=== PATIENT | female | born 1940 | race Caucasian/White ===

== ENCOUNTER 2016-08-08 14:41 | Inpatient (IN) | payer MEDICARE, MEDICAID ==
[~2016-08-08] VITALS: Ht 172.7 cm; Wt 53.5 kg
[~2016-08-08 14:41] MED LIST: ALPR-323 PO; DOCU50LI13 PO; ESCI20TA PO; LISI40TA4 PO; LORA0.5T PO; METO100T3 PO; OLAN5TAB3 PO; QUET25TA PO; RIVA3CAP5 PO; ZOLP5TAB7 PO
--- NOTE | 2016-08-08 15:00 | NUR ---
PT BIB PA FOR EVAL OF R HIP FX, NOTED WITH INTERNAL ROTATION. AT BASELINE LOC, OBTUNDED. NAD NOTED; DOES NOT APPEAR TO BE IN PAIN AT REST. RESP EVEN UNLABORED. SKIN WARM NONDIAPHORETIC. SHOWING ST ON MONITOR. ON MONITOR IN ER BED 11.
[2016-08-08 15:03] LABS: BASOPHILS # (AUTO) 0.3 /CMM (0.0-0.2); BASOPHILS % (AUTO) 1.6 % (0.0-2.0); EOSINOPHILS # (AUTO) 0.2 /CMM (0.0-0.7); EOSINOPHILS % (AUTO) 0.9 % (0.0-6.0); HEMATOCRIT 43 % (33-45); HEMOGLOBIN 14.3 g/dL (11.5-14.8); LYMPHOCYTES # (AUTO) 2.8 /CMM (0.8-4.8); LYMPHOCYTES % (AUTO) 15.2 % (20.0-44.0); MEAN CORPUSCULAR HEMOGLOBIN 28 PG (26.0-33.0); MEAN CORPUSCULAR HGB CONC 34 g/dl (31.0-36.0); MEAN CORPUSCULAR VOLUME 82 fL (82-100); MONOCYTES # (AUTO) 1.3 /CMM (0.1-1.30); MONOCYTES % (AUTO) 7.3 % (2.0-12.0); NEUTROPHILS # (AUTO) 13.6 /CMM (1.8-8.9); PLATELET COUNT (AUTO) 367 /CMM (150-450); RDW COEFFICIENT OF VARIATION 14.6 (11.5-15.0); RED BLOOD CELL COUNT(AUTO) 5.18 MIL/uL (4.0-5.2); WHITE BLOOD COUNT (AUTO) 18.2 K/uL (4.3-11.0)
[2016-08-08 15:13] LABS: CALCIUM, SERUM 8.9 mg/dL (8.5-10.1); POTASSIUM 4.2 mmol/L (3.5-5.1)
[2016-08-08 15:17] LABS: INR 0.98 (0.87-1.13); PROTHROMBIN TIME 10.2 SECS (9.5-12.7)
[2016-08-08 15:19] LABS: ALBUMIN 2.7 g/dL (3.4-5.0); BILIRUBIN,DIRECT 0.5 mg/dL (0.0-0.2); BILIRUBIN,TOTAL 1.6 mg/dL (0.2-1.0); TOTAL PROTEIN, SERUM 7.1 g/dL (6.4-8.2)
[2016-08-08 15:48] LABS: EOSINOPHILS % (MANUAL) 1 % (0-4); LYMPHOCYTES % (MANUAL) 14 % (16-48); MONOCYTES % (MANUAL) 10 % (0-11.0); NEUTROPHILS % (MANUAL) 75 (42-76); PLATELET ESTIMATE ADEQUATE
[2016-08-08] MEDS ORDERED: IV NS 0.9% 1,000 ML BAG IV ONE (16:00)
[2016-08-08] MEDS ORDERED: CEFTRIAXONE 1GM BAG (ER ONLY) 50 ML IV ONE ×2 (16:00→16:01)
[2016-08-08] MEDS ORDERED: IV NS 0.9% 1,000 ML ONE (16:01)
[2016-08-08] MEDS ORDERED: IV SET PRIMARY 1 EA INFUS.SET MC ONE (16:01)
--- NOTE | 2016-08-08 16:13 | NUR ---
CALLED DR. NG'S OFFICE, HE IS NOT AVAILABLE HE IS ON VACATION. PAGED SENIOR ENVIRONMENTAL TECHNICIAN PANEL WHO IS COVERING FOR DR. NG.
--- NOTE | 2016-08-08 16:18 | NUR ---
INTERIANO CATH 16FR INSERTED PER DR RUIZ. IMMEDIATE DRAINAGE OF CLOUDY ANUPAM URINE.
--- NOTE | 2016-08-08 16:25 | NUR ---
REPORT LYLA TO RUPESH CONTRERAS FOR ADMISSION
[2016-08-08] MEDS ORDERED: ACETAMINOPHEN 325 MG TABLET PO PRN (16:30)
[2016-08-08] MEDS ORDERED: HYDROCODONE/APAP 5/325MG 1 EACH TABLET PO PRN (16:30)
[2016-08-08] MEDS ORDERED: MAG HYDROX/AL HYDROX/SIMETH 30 ML UDC PO PRN (16:30)
[2016-08-08] MEDS ORDERED: ONDANSETRON HCL/PF 4 MG/2 ML VIAL IVP PRN (16:30)
[2016-08-08] MEDS ORDERED: ZOLPIDEM TARTRATE 5 MG TABLET PO PRN (16:30)
[2016-08-08] MEDS ORDERED: MAGNESIUM HYDROXIDE 30 ML UDC PO PRN (16:30)
[2016-08-08] MEDS ORDERED: CRAN3875 PO (16:34)
[2016-08-08] MEDS ORDERED: ALBU2.5V13 NEB (16:34)
[2016-08-08] MEDS ORDERED: MAGN400O6 PO (16:34)
[2016-08-08] MEDS ORDERED: BISA10SU8 RC (16:34)
[2016-08-08] MEDS ORDERED: MULT-213 PO (16:34)
[2016-08-08] MEDS ORDERED: METO25TA6 PO (16:34)
[2016-08-08] MEDS ORDERED: DOCU-170 PO (16:34)
[2016-08-08] MEDS ORDERED: ACET-2605 PO (16:34)
[2016-08-08] MEDS ORDERED: NA P133E RC (16:34)
[2016-08-08] MEDS ORDERED: IPRA0.2S49 NEB (16:34)
[2016-08-08] MEDS ORDERED: ACET-868 PO (16:34)
--- NOTE | 2016-08-08 16:39 | NUR ---
PT TRANSPORTED TO [facility] IN STABLE CONDITION VIA ACLS PROTOCOL
[2016-08-08 16:50] VITALS: BP 113/74
--- NOTE | 2016-08-08 16:50 | NUR ---
RN NOTES RECEIVED PATIENT FROM ER ALERT, AWAKE WITH BREATHING NORMAL, EVEN AND UNLABORED. NO SOB NOTED. ON 2L O2 VIA NC, SATURATING WELL. NO ACUTE DISTRESS NOTED. IV R HAND 20G IS PATENT AND INTACT, NO INFILTRATION NOTED. BOWEL SOUND PRESENT. PULSES PRESENT. F/C IS PATENT AND INTACT, DRAINING WITH GRAVITY. KEPT CLEAN, DRY AND COMFORTABLE. ALL NEEDS ATTENDED. SAFETY MEASURE OBSERVED. CALL LIGHT WITH IN REACH. WILL CONT TO MONITOR.
[2016-08-08] MEDS: PANTOPRAZOLE 40 MG TABLET.DR PO SCH (17:25)
[2016-08-08] MEDS ORDERED: IV SET PRIMARY PUMP SET 1 EA INFUS.SET MC ONE (17:53)
[2016-08-08] MEDS: IV D5/0.45 NACL 1,000 ML IV PRN (18:10)
[2016-08-08 19:03] LABS: APPEARANCE,URINE SL CLOUDY (CLEAR); BILIRUBIN,URINE NEGATIVE (NEGATIVE); BLOOD, URINE TRACE Ery/uL (NEGATIVE); COLOR,URINE DARK YELLO (YELLOW); KETONES,URINE 1+ (NEGATIVE); LEUKOCYTE ESTERASE ,URINE TRACE (NEGATIVE); NITRITE, URINE POSITIVE (NEGATIVE); PH,URINE 5.5 (5.0-8.0); PROTEIN,URINE 1+ mg/dl (NEGATIVE); UGLUCOSE NEGATIVE (NEGATIVE)
--- NOTE | 2016-08-08 19:30 | NUR ---
RN INITIAL NOTES RECEIVED PATIENT IN BED, OBTUNDED, RESPONSIVE WITH VERBAL AND TACTILE STIMULI WITH EYE OPENING AND WITHDRAWAL FROM STIMULI. NO ACUTE DISTRESS OBSERVED. PATIENT WITH EVEN RESPIRATION, NONLABORED, ON 2LPM OF O2 VIA NC. WITH F/C, INTACT AND DRAINING WELL WITH ANUPAM COLORED URINE, NO BLADDER DISTENTION NOTED. WITH R HAND G20, FLUSHED AND PATENT, IVF INFUSING WELL ORDERED. PATIENT'S NEEDS ANTICIPATED AND MET. SAFETY AND COMFORT ENSURED. BED IN LOW AND LOCKED POSITION. CALL LIGHT IN REACH. WILL MONITOR. Addendum: 08/09/16 at 0105 by HOLDEN SAGASTUME RN PATIENT NOTED WITH R HIP/ UPPER THIGH SWELLING, PATIENT WITH FACIAL GRIMACING WITH PALPATION OF SITE. PATIENT REPOSITIONED FOR COMFORT, HANDLED GENTLY WITH CARE. WILL MONITOR CLOSELY.
[2016-08-08 19:51] LABS: RBC,URINE 0-2 /HPF (0-2)
[2016-08-08 19:52] LABS: ADD URINE CULTURE YES; BACTERIA,URINE Moderate /HPF (None Seen); SQUAMOUS EPITHELIAL CELL,UR Few /HPF (None Seen)
--- NOTE | 2016-08-08 19:55 | NUR ---
RN NOTES PATIENT ENDORSED TO NEXT SHIFT IN STABLE CONDITION WITH BREATHING NORMAL, EVEN AND UNLABORED. NO SOB NOTED. NO ACUTE DISTRESS NOTED. KEPT CLEAN, DRY AND COMFORTABLE. ALL NEEDS ATTENDED. SAFETY MEASURE OBSERVED. CALL LIGHT WITH IN REACH. WILL CONT TO MONITOR.
[2016-08-08 20:00] VITALS: BP 117/80
[2016-08-09 04:00] VITALS: BP 121/73
[2016-08-09] MEDS: IV D5/0.45 NACL 1,000 ML IV PRN ×2 (04:35→18:33)
[2016-08-09 06:34] LABS: BASOPHILS # (AUTO) 0.1 /CMM (0.0-0.2); BASOPHILS % (AUTO) 0.6 % (0.0-2.0); EOSINOPHILS # (AUTO) 0.2 /CMM (0.0-0.7); EOSINOPHILS % (AUTO) 1.5 % (0.0-6.0); HEMATOCRIT 31 % (33-45); HEMOGLOBIN 10.6 g/dL (11.5-14.8); LYMPHOCYTES # (AUTO) 2.1 /CMM (0.8-4.8); LYMPHOCYTES % (AUTO) 19.6 % (20.0-44.0); MEAN CORPUSCULAR HEMOGLOBIN 28 PG (26.0-33.0); MEAN CORPUSCULAR HGB CONC 34 g/dl (31.0-36.0); MEAN CORPUSCULAR VOLUME 82 fL (82-100); MONOCYTES # (AUTO) 0.6 /CMM (0.1-1.30); MONOCYTES % (AUTO) 5.9 % (2.0-12.0); NEUTROPHILS # (AUTO) 7.7 /CMM (1.8-8.9); NEUTROPHILS % (AUTO) 72.4 % (43.0-81.0); PLATELET COUNT (AUTO) 240 /CMM (150-450); RDW COEFFICIENT OF VARIATION 15.7 (11.5-15.0); RED BLOOD CELL COUNT(AUTO) 3.81 MIL/uL (4.0-5.2); WHITE BLOOD COUNT (AUTO) 10.6 K/uL (4.3-11.0)
--- NOTE | 2016-08-09 06:43 | NUR ---
RN CLOSING NOTES PATIENT WITH NO ACUTE DISTRESS OBSERVED OVERNIGHT. PATIENT MONITORED CLOSELY FOR ANY INDICATIONS OF PAIN AND DISCOMFORT. PATIENT HANDLED GENTLY WITH CARE AT ALL TIMES. KEPT CLEAN AND DRY. IVF INFUSING WELL ON PATIENT'S R HAND G20, NO SIGNS OF INFILTRATION. PATIENT'S F/C DRAINED, NOTED WITH FOUL ODOR, ANUPAM COLORED URINE. PATIENT'S NEEDS ANTICIPATED AND MET. SAFETY AND COMFORT ENSURED. CALL LIGHT IN REACH. WILL ENDORSE ACCORDINGLY FOR CONTINUITY OF CARE.
[2016-08-09 07:05] LABS: ALBUMIN 2.1 g/dL (3.4-5.0); BILIRUBIN,TOTAL 0.7 mg/dL (0.2-1.0); CREATININE 0.7 mg/dL (0.6-1.3); MAGNESIUM 1.9 mg/dL (1.8-2.4); PHOSPHORUS 3.1 mg/dL (2.5-4.9); POTASSIUM 3.6 mmol/L (3.5-5.1); TOTAL PROTEIN, SERUM 5.7 g/dL (6.4-8.2)
[2016-08-09] MEDS: PANTOPRAZOLE 40 MG TABLET.DR PO SCH (07:30)
--- NOTE | 2016-08-09 07:50 | NUR ---
RN INITIAL NOTE PT RECEIVED IN BED, RESTING COMFORTABLY. NO S/S OF RESPIRATORY DISTRESS OR SOB, RESPIRATIONS EVEN AND UNLABORED. PT IS OBTUNDED, NON VERBAL. SKIN WARM AND DRY TO TOUCH. PT HAS A RIGHT HIP FRACTURE. NO S/S OF PAIN OR DISCOMFORT. IV SITE FLUSHED AND PATENT. DRESSING C/D/I. INTERIANO CATHETER PATENT AND DRAINING WITH GRAVITY. SAFETY MEASURES IN PLACE. BED IN LOCKED, LOW POSITION WITH TWO SIDE RAILS UP. BED ALARM ON. CALL LIGHT WITHIN REACH. WILL CONTINUE TO MONITOR.
[2016-08-09 08:00] VITALS: BP 123/79
--- NOTE | 2016-08-09 09:39 | NUR ---
RN NOTE PROTONIX NOT GIVEN. ORDERED PO, AWAITING SWALLOW EVAL. ORDERED ISOFLEX BED.
--- NOTE | 2016-08-09 11:26 | NUR ---
WOUND CARE CONSULT: PATIENT SEEN AND SKIN ASSESSMENT DONE. PATIENT IMMOBILE, INCONTINENT, TAMY 10, ON FIRST STEP MATTRESS. SEE TODAY'S SKIN ASSESSMENT IN PCS ALONG WITH RECOMMENDATIONS. RECOMMEND MOISTURE PROTECTION WITH Z GUARD ORDERED. PRESSURE PREVENTION MEASURES, TURN AND REPOSITION EVERY 2 HRS PATIENT CONDITION PERMITS, OFFLOAD BOTH HEELS. ALL DISCUSSED WITH NURSING STAFF. MD IN AGREEMENT WITH PLAN OF CARE. Addendum: 08/09/16 at 1128 by CHECO MONTES WNDNU Amended: Links added.
--- NOTE | 2016-08-09 12:30 | NUR ---
CONSENT FOR SURGERY OBTAINED FROM DEPUTY PUBLIC GUARDIAN LOUISE COMERDiana [phone] WITNESSED BY PRIMARY NURSE JESICA.
[2016-08-09] MEDS: POTASSIUM CL. PREMIX PERIPHER. 50 ML IV SCH ×2 (13:54→15:51)
[2016-08-09] MEDS ORDERED: SECONDARY IV SET 1 EA INFUS.SET MC ONE ×2 (13:54→14:45)
[2016-08-09] MEDS: CEFTRIAXONE 1 G in IV D5W 50 ML IV SCH (15:15)
[2016-08-09 16:00] VITALS: BP 110/76
--- NOTE | 2016-08-09 18:16 | NUR ---
RN CLOSING NOTE PT RESTING IN BED COMFORTABLY. ALL MD ORDERS CARRIED OUT. PT. KEPT CLEAN AND DRY. IV SITE C/D/I. PATENT. ALL SAFETY MEASURES IMPLEMENTED AT ALL TIME. ISOLATION PRECAUTIONS OBSERVED. REPORT WILL BE GIVEN TO PM RN FOR BLACK.
[2016-08-09 20:00] VITALS: BP 124/74
--- NOTE | 2016-08-10 02:56 | NUR ---
RN NOTES PATIENT SLEEPING COMFORTABLY. NO DISTRESS NOTED. ON 2LPM OF O2 VIA NC, RESPIRATION IS EVEN AND UNLABORED. NO ACUTE SIGNS OF PAIN AND DISCOMFORT. SAFETY AND COMFORT ENSURED. BED IN LOW AND LOCKED POSITION. ON CLOSE MONITORING.
[2016-08-10 04:00] VITALS: BP 109/65
[2016-08-10] MEDS: IV D5/0.45 NACL 1,000 ML IV PRN (05:55)
--- NOTE | 2016-08-10 06:52 | NUR ---
RN CLOSING NOTES PATIENT IN BED, SLEEPING COMFORTABLY. NO DISTRESS AND NO DISCOMFORT OBSERVED. PATIENT ON 2LPM OF O2 VIA NC, RESPIRATION IS EVEN AND UNLABORED WITH NO DISTRESS OBSERVED. IVF OF D5 1/2NS AT 75CC/HR INFUSING WELL ON PATIENT'S R HAND, NO INFILTRATION NOTED. F/C INTACT AND DRAINING WELL WITH ANUPAM COLORED URINE. PATIENT KEPT CLEAN AND DRY. AM CARE RENDERED. PATIENT TURNED AND REPOSITIONED, SAFETY AND COMFORT ENSURED. BED IN LOW AND LOCKED POSITION. CALL LIGHT IN REACH. WILL ENDORSE ACCORDINGLY FOR CONTINUITY OF CARE.
[2016-08-10 07:04] LABS: BASOPHILS # (AUTO) 0.1 /CMM (0.0-0.2); BASOPHILS % (AUTO) 0.6 % (0.0-2.0); EOSINOPHILS # (AUTO) 0.2 /CMM (0.0-0.7); EOSINOPHILS % (AUTO) 2.3 % (0.0-6.0); HEMATOCRIT 30 % (33-45); HEMOGLOBIN 10.4 g/dL (11.5-14.8); LYMPHOCYTES # (AUTO) 1.7 /CMM (0.8-4.8); LYMPHOCYTES % (AUTO) 19.8 % (20.0-44.0); MEAN CORPUSCULAR HEMOGLOBIN 28 PG (26.0-33.0); MEAN CORPUSCULAR HGB CONC 34 g/dl (31.0-36.0); MEAN CORPUSCULAR VOLUME 82 fL (82-100); MONOCYTES # (AUTO) 0.6 /CMM (0.1-1.30); MONOCYTES % (AUTO) 6.8 % (2.0-12.0); NEUTROPHILS # (AUTO) 5.9 /CMM (1.8-8.9); NEUTROPHILS % (AUTO) 70.5 % (43.0-81.0); PLATELET COUNT (AUTO) 233 /CMM (150-450); WHITE BLOOD COUNT (AUTO) 8.4 K/uL (4.3-11.0)
[2016-08-10] MEDS: PANTOPRAZOLE 40 MG TABLET.DR PO SCH (07:30)
[2016-08-10 07:31] LABS: ALBUMIN 2.1 g/dL (3.4-5.0); BILIRUBIN,TOTAL 0.8 mg/dL (0.2-1.0); CALCIUM, SERUM 8.3 mg/dL (8.5-10.1); CREATININE 0.7 mg/dL (0.6-1.3); MAGNESIUM 1.7 mg/dL (1.8-2.4); PHOSPHORUS 2.8 mg/dL (2.5-4.9); POTASSIUM 4.1 mmol/L (3.5-5.1); TOTAL PROTEIN, SERUM 5.8 g/dL (6.4-8.2)
--- NOTE | 2016-08-10 07:35 | NUR ---
RN NOTES PATIENT IS OBTUNDED/NONVERBAL, RESPONSIVE WITH VERBAL AND TACTILE STIMULI. OBSERVED AND MONITORED FOR ANY INDICATION OF PAIN AND DISCOMFORT. PATIENT APPEARING CALM AT THIS TIME, NO MOANING AND FACIAL GRIMACING NOTED. PATIENT WITH EVEN RESPIRATION, NON-LABORED, ON 2LPM OF O2 VIA NC. PATIENT STILL NOTED WITH R HIP/ UPPER THIGH SWELLING. PATIENT REPOSITIONED FOR COMFORT, HANDLED GENTLY WITH CARE. WITH F/C, INTACT AND DRAINING WELL WITH ANUPAM COLORED URINE, NO BLADDER DISTENTION NOTED. WITH R HAND G20, FLUSHED AND PATENT, IVF INFUSING WELL ORDERED. PATIENT'S NEEDS ANTICIPATED AND MET. SAFETY AND COMFORT ENSURED. BED IN LOW AND LOCKED POSITION. CALL LIGHT IN REACH. WILL CONTINUE TO MONITOR.
--- NOTE | 2016-08-10 07:55 | NUR ---
RN NOTES PATIENT TAKEN TO OR IN STABLE CONDITION WILL CONTINUE TO MONITOR UPON RETURN
[2016-08-10 08:00] VITALS: BP 129/97
[2016-08-10] MEDS ORDERED: FENTANYL PF 100MCG/2ML AMPUL ONE (08:35)
--- NOTE | 2016-08-10 10:40 | NUR ---
RN NOTES BACK FROM OR IN STABLE CONDITION SEEN BY MD STUDENT, MADE COMFORTABLE, WILL CONTINUE TO MONITOR AND CARRY OUT POST OP ORDERS
[2016-08-10] MEDS ORDERED: SENNOSIDES 8.6 MG TABLET PO PRN (11:00)
[2016-08-10] MEDS ORDERED: DOCUSATE SODIUM 250 MG CAPSULE PO PRN (11:00)
[2016-08-10] MEDS ORDERED: HYDROMORPHONE 1 MG/1 ML DISP.SYRIN IV PRN (11:00)
[2016-08-10] MEDS ORDERED: HYDROCODONE/APAP 5/325MG 1 EACH TABLET PO PRN (11:00)
[2016-08-10] MEDS ORDERED: ONDANSETRON HCL/PF 4 MG/2 ML VIAL IVP PRN (11:00)
[2016-08-10] MEDS ORDERED: ZOLPIDEM TARTRATE 5 MG TABLET PO PRN (11:00)
[2016-08-10] MEDS ORDERED: ACETAMINOPHEN 325 MG TABLET PO PRN (11:00)
[2016-08-10] MEDS ORDERED: BISACODYL SUPP (10 MG) 10 MG/SUPP.RECT SUPP.RECT RC PRN (11:00)
[2016-08-10] MEDS ORDERED: IV LR 1000 ML 1,000 ML IV PRN (11:00)
[2016-08-10] MEDS ORDERED: IV SET PRIMARY PUMP SET 1 EA INFUS.SET MC ONE (11:39)
[2016-08-10] MEDS ORDERED: SECONDARY IV SET 1 EA INFUS.SET MC ONE ×2 (11:39→14:24)
[2016-08-10] MEDS: Magnesium 1GM/D5W 100ML PREMIX 100 ML IV SCH ×2 (11:49→15:19)
[2016-08-10 12:00] VITALS: BP 129/97
[2016-08-10] MEDS ORDERED: ANESTHESIA TRAY IN PYXIS 1 EA TRAY MC ONE (13:04)
[2016-08-10] MEDS: CEFTRIAXONE 1 G in IV D5W 50 ML IV SCH (14:29)
--- NOTE | 2016-08-10 18:51 | NUR ---
RN NOTES PATIENT IS OBTUNDED/NONVERBAL, RESPONSIVE WITH VERBAL AND TACTILE STIMULI. OBSERVED AND MONITORED FOR ANY INDICATION OF PAIN AND DISCOMFORT. PATIENT APPEARING CALM AT THIS TIME, NO MOANING AND FACIAL GRIMACING NOTED. PATIENT WITH EVEN RESPIRATION, NON-LABORED, ON 2LPM OF O2 VIA NC. PATIENT STILL NOTED WITH R HIP DRESSING CLEAN AND INTACT NO BLEEDING NOTED. PATIENT REPOSITIONED FOR COMFORT, HANDLED GENTLY WITH CARE. WITH F/C, INTACT AND DRAINING WELL WITH ANUPAM COLORED URINE, NO BLADDER DISTENTION NOTED. WITH R HAND G20, FLUSHED AND PATENT, IVF INFUSING WELL ORDERED. PATIENT'S NEEDS ANTICIPATED AND MET. SAFETY AND COMFORT ENSURED. BED IN LOW AND LOCKED POSITION. CALL LIGHT IN REACH. WILL CONTINUE TO MONITOR. Addendum: 08/10/16 at 1854 by FABIAN ENRIQUEZ RN RN NOTES RN NOTES WILL ENDORSE TO NEXT SHIFT FOR CONTINUITY OF CARE
[2016-08-10 20:00] VITALS: BP 126/74
--- NOTE | 2016-08-10 20:00 | NUR ---
RECEIVED PATIENT IN BED, PATIENT IS OBTUNDENT/ NON-VERBAL. VSS, AFEBRILE, NO DISTRESS, NO S/S OF PAIN NOTED. PATIENT TURNED AND REPOSITIONED FOR MORE COMFORT AT THIS TIME. CONTINUE TO MONITOR
[2016-08-11] VITALS (14 sets, daily range): BP systolic 99–139; BP diastolic 56–95
[2016-08-11 06:19] LABS: BASOPHILS # (AUTO) 0.1 /CMM (0.0-0.2); BASOPHILS % (AUTO) 0.6 % (0.0-2.0); EOSINOPHILS # (AUTO) 0.1 /CMM (0.0-0.7); EOSINOPHILS % (AUTO) 1.1 % (0.0-6.0); HEMATOCRIT 24 % (33-45); HEMOGLOBIN 8.3 g/dL (11.5-14.8); LYMPHOCYTES # (AUTO) 1.4 /CMM (0.8-4.8); LYMPHOCYTES % (AUTO) 15.5 % (20.0-44.0); MEAN CORPUSCULAR HEMOGLOBIN 28 PG (26.0-33.0); MEAN CORPUSCULAR HGB CONC 34 g/dl (31.0-36.0); MEAN CORPUSCULAR VOLUME 81 fL (82-100); MONOCYTES # (AUTO) 0.5 /CMM (0.1-1.30); MONOCYTES % (AUTO) 6.2 % (2.0-12.0); NEUTROPHILS # (AUTO) 6.7 /CMM (1.8-8.9); NEUTROPHILS % (AUTO) 76.6 % (43.0-81.0); PLATELET COUNT (AUTO) 202 /CMM (150-450); RDW COEFFICIENT OF VARIATION 14.9 (11.5-15.0); RED BLOOD CELL COUNT(AUTO) 2.98 MIL/uL (4.0-5.2); WHITE BLOOD COUNT (AUTO) 8.8 K/uL (4.3-11.0)
[2016-08-11 07:02] LABS: ALBUMIN 1.9 g/dL (3.4-5.0); BILIRUBIN,TOTAL 0.9 mg/dL (0.2-1.0); CALCIUM, SERUM 7.9 mg/dL (8.5-10.1); CREATININE 0.7 mg/dL (0.6-1.3); MAGNESIUM 2.1 mg/dL (1.8-2.4); PHOSPHORUS 3.4 mg/dL (2.5-4.9); POTASSIUM 4.2 mmol/L (3.5-5.1); TOTAL PROTEIN, SERUM 5.2 g/dL (6.4-8.2)
--- NOTE | 2016-08-11 07:15 | NUR ---
ms rn initial notes received patient in bed, awake, head of bed elevated, no SOB or distress noted. On 02 @ 2lpm via NC and tolerated well. Non-verbal. No facial grimace noted. Schneider in placed attached to drainage bag. IV intact and patent with IVF infusing well. Kept patient clean and comfortable in bed, call light with in patient reach, will continue to monitor accordingly.
[2016-08-11] MEDS: PANTOPRAZOLE 40 MG TABLET.DR PO SCH (07:30)
--- NOTE | 2016-08-11 08:44 | NUR ---
MS RN NOTES Dr. Cheung came seen and examined the patient and ordered NGT insertion, 2 units of packed Red blood cell due to hemoglobin of 8.3 chest x-ray after placement. to start fibersource @ 20ml/hr once placement is confirm, discontinue peter catheter. All orders carried out and noted. Will continue to monitor patient. Will call Maureen public guardian for consent for blood transfusion.
[2016-08-11 09:38] LABS: IRON, SERUM 17 ug/dl (50-175); TOTAL IRON BINDING CAPACITY 119 ug/dl (250-450)
[2016-08-11 09:45] LABS: FERRITIN 404 ng/mL (8-388)
--- NOTE | 2016-08-11 09:59 | NUR ---
MS RN NOTES Held medication due to patient is NPO. Will continue to monitor patient accordingly.
--- NOTE | 2016-08-11 10:12 | NUR ---
ms rn notes peter catheter removed will monitor for output and urined retension. will continue to monitor patient accordingly.
[2016-08-11] MEDS: FIBERSOURCE HN 1,000 ML BOTTLE GT PRN (10:42)
[2016-08-11] MEDS: RIVAROXABAN 10 MG TABLET PO SCH (10:54)
--- NOTE | 2016-08-11 10:54 | NUR ---
ms rn notes Chest x-ray result obtained and informed MD the placement of NGT in the stomach and made aware. Started NGT feeding @ 20ml/hr. Will continue to monitor accordingly.
[2016-08-11] MEDS: CEFTRIAXONE 1 G in IV D5W 50 ML IV SCH (13:38)
[2016-08-11 14:20] LABS: HEMOGLOBIN 8.3 g/dL (11.5-14.8)
[2016-08-11] MEDS ORDERED: BLOOD IV SET 1 EA INFUS.SET MC ONE ×2 (14:49→17:30)
[2016-08-11] MEDS ORDERED: IV NS 0.9% 250 ML IV ONE (14:49)
--- NOTE | 2016-08-11 19:40 | NUR ---
MS RN closing notes Patient in bed, awake, head of bed elevated. No SOB or distress noted. On 02 @ 3lpm via NC and tolerated well. Pt is nonverbal. No facial grimace noted. S/P peter cath removal. Output was 300mL. No bowel movement. IV intact and patent. Pt infusing one more unit of PRBCs. Pt stable and tolerated well. Kept patient clean and comfortable in bed. Call light within patient reach. Will endorse to shift boss nurse.
--- NOTE | 2016-08-11 20:00 | NUR ---
MS/ RN NOTES RECEIVED PATIENT IS OBTUNDED/NONVERBAL,PATIENT WITH EVEN RESPIRATION, NON-LABORED, ON 2LPM OF O2 VIA NC. RESPONSIVE WITH VERBAL AND TACTILE STIMULI. NO COMPLAINTS OF OF PAIN AND DISCOMFORT. PATIENT APPEARING CALM AT THIS TIME, WITH NG TUBE ON LEFT NARES WITH ONGOING FEEDING AT THIS TIME. . WITH BLOOD TRANSFUSION ONGOING. NO ADVERSE REACTIONS NOTED. PATIENT WITH EVEN RESPIRATION, NON-LABORED, ON 2LPM OF O2 VIA NC. PATIENT STILL NOTED WITH R HIP/ UPPER THIGH SWELLING. PATIENT REPOSITIONED FOR COMFORT, HANDLED GENTLY WITH WITH R HAND G20, FLUSHED AND PATENT, BED IN LOW AND LOCKED POSITION. CALL LIGHT IN REACH. WILL CONTINUE TO MONITOR.
--- NOTE | 2016-08-11 20:51 | NUR ---
ms/rn notes Patient in bed, Alert et orientedx1. Remain in stable condition. Received 2nd unit of prbc as ordered. No adverse reactions noted. Vital signs stable. No indications of pain or discomfort. With Ng tube, Feeding ongoing. Patient tolerated it well. Will cont. to monitor.
[2016-08-12 04:00] VITALS: BP 142/68
[2016-08-12] MEDS ORDERED: SECONDARY IV SET 1 EA INFUS.SET MC ONE (05:36)
[2016-08-12 06:25] LABS: HEMATOCRIT 44 % (33-45); HEMOGLOBIN 14.6 g/dL (11.5-14.8); LYMPHOCYTES # (AUTO) 0.6 /CMM (0.8-4.8); LYMPHOCYTES % (AUTO) 6.2 % (20.0-44.0); MEAN CORPUSCULAR HEMOGLOBIN 35 PG (26.0-33.0); MEAN CORPUSCULAR HGB CONC 33 g/dl (31.0-36.0); MEAN CORPUSCULAR VOLUME 105 fL (82-100); MONOCYTES # (AUTO) 0.6 /CMM (0.1-1.30); MONOCYTES % (AUTO) 5.6 % (2.0-12.0); NEUTROPHILS # (AUTO) 8.9 /CMM (1.8-8.9); NEUTROPHILS % (AUTO) 88.2 % (43.0-81.0); PLATELET COUNT (AUTO) 129 /CMM (150-450); RDW COEFFICIENT OF VARIATION 13.9 (11.5-15.0); RED BLOOD CELL COUNT(AUTO) 4.22 MIL/uL (4.0-5.2); WHITE BLOOD COUNT (AUTO) 10.1 K/uL (4.3-11.0)
--- NOTE | 2016-08-12 06:37 | NUR ---
MS RN closing notes Patient in bed, awake, head of bed elevated. No SOB or distress noted. On 02 @ 3lpm via NC and tolerated well. Pt is nonverbal. No facial grimace noted. With Ng tube on right nares. with ongoing feeding. Patient tolerate it well. No bowel movement. IV intact and patent. . Pt remain in stable condition. Kept patient clean and comfortable in bed. Call light within patient reach. Will endorse to day shift nurse.
--- NOTE | 2016-08-12 06:55 | NUR ---
RN INTIAL NOTE RECEIVED PT FRO PM NURSE. PT OBTUNDED, NON VERBAL . FC INTACT YELLOW URINE. NGT PLACEMENT CK NO RESIDUAL TOLERATING FIBERSOURCE @ 20 ML/ HR. R HAND #20G FLUSHED,PATENT AND INTACT. ALL SAFETY MEASURES IN PLACE. PT CLEAN WARM AND DRY. PT NOT ABLE TO VERBALIZE PAIN. WILL CONTINUE TO MONITOR CLOSELY.
[2016-08-12 07:24] LABS: BILIRUBIN,TOTAL 0.9 mg/dL (0.2-1.0); CREATININE 0.9 mg/dL (0.6-1.3); MAGNESIUM 1.9 mg/dL (1.8-2.4); POTASSIUM 4.8 mmol/L (3.5-5.1); TOTAL PROTEIN, SERUM 5.2 g/dL (6.4-8.2)
[2016-08-12 08:00] VITALS: BP 116/73
[2016-08-12] MEDS: PANTOPRAZOLE 40 MG TABLET.DR PO SCH (09:01)
[2016-08-12] MEDS ORDERED: IV NS 0.9% 250 ML IV ONE (14:43)
--- NOTE | 2016-08-12 14:49 | NUR ---
RN NOTE IV NS @TKO ALONG WITH CEFTRIAXONE.
[2016-08-12] MEDS: CEFTRIAXONE 1 G in IV D5W 50 ML IV SCH (14:53)
[2016-08-12] MEDS ORDERED: IV SET PRIMARY PUMP SET 1 EA INFUS.SET MC ONE (14:54)
[2016-08-12 16:00] VITALS: BP 144/73
[2016-08-12] MEDS: RIVAROXABAN 10 MG TABLET PO SCH (18:07)
[2016-08-12] MEDS: Z GUARD REMEDY 2 OZ OINT TP PRN (18:51)
[2016-08-12] MEDS ORDERED: NA PHOS,M-B/NA PHOS,DI-BA 1 EA ENEMA RC PRN (19:00)
[2016-08-12] MEDS ORDERED: MAGNESIUM HYDROXIDE 30 ML UDC PO PRN (19:00)
[2016-08-12] MEDS ORDERED: ALBUTEROL FS 2.5 MG/0.5 ML VIAL.NEB NEB PRN (19:00)
[2016-08-12] MEDS ORDERED: ACETAMINOPHEN 325 MG TABLET PO PRN (19:00)
[2016-08-12] MEDS ORDERED: BISACODYL SUPP (10 MG) 10 MG/SUPP.RECT SUPP.RECT RC PRN (19:00)
--- NOTE | 2016-08-12 19:15 | NUR ---
RN CLOSING NOTE PT SPONTANEOUSLY OPENS EYES, NON VERBAL . FC INTACT YELLOW URINE. NGT PLACEMENT CK NO RESIDUAL TOLERATING FIBERSOURCE @ 20 ML/ HR. R HAND #20G FLUSHED,PATENT AND INTACT. ALL SAFETY MEASURES IN PLACE. PT CLEAN WARM AND DRY. ALL MEDICATIONS GIVEN ALL ORDERS CARRIED OUT. PT NOT IN ACUTE SOB. PT RESTING COMFORTABLY. REPORT GIVEN TO PM NURSE FOR BLACK.
[2016-08-12] MEDS ORDERED: IPRATROPIUM NEB FS 0.5 MG/2.5 ML AMPUL.NEB NEB PRN (19:30)
[2016-08-12 20:00] VITALS: BP 124/68
--- NOTE | 2016-08-12 20:00 | NUR ---
MS RN NOTES RECEIVED PTS ON BED AWAKE WITH EYES OPEN , NO FACIAL GRIMACES NOTED , NO SOB NO DISTRESS NOTED . V/S STABLE AFEBRILE ,WITH RIGHT HAND G#20 INTACT AND PATENT , WITH NGT INPLACE FEEDING OF FIBERSOURCE AT 20 CC/HR WELL TOLERATED , NO RESIDUAL NOTED, HOB ELEVATED FOR ASPIRATION PRECAUTION. ALL NEEDS ATTENDED TOO CALL LIGHT WITHIN REACH KEPT PTS CLEAN DRY AND COMFORTABLE,
[2016-08-13 04:00] VITALS: BP 156/76
--- NOTE | 2016-08-13 06:35 | NUR ---
MS RN NOTES PTS ON BED WITH EYES OPEN ,AND RESPONSIVE , NO CHANGE OF CONDITION NOTED V/S STABLE AFEBRILE , REMAINS ON NGT INTACT AND PATENT , POST OP DRESSING ON R HIPS INTACT AND PATENT NO BLEEDING NOTED , ALL NEEDS ATTENDED TOO CALL LIGHT WITHIN REACH , KEPT PTS CLEAN DRY AND COMFORTABLE, WILL ENDORSE TO RN DAY SHIFT FOR CONTINUITY OF CARE.
[2016-08-13] MEDS: FIBERSOURCE HN 1,000 ML BOTTLE GT PRN (06:52)
--- NOTE | 2016-08-13 07:15 | NUR ---
DIANE INITIAL NOTES: Rec'd pt asleep on bed w/ HOB elevated, not in any distress. On O2 at 3lpm/NC, no SOB, saturating at 100%. Pt has NGT on right nares on continuous feeding Fibersource at 20 cc/hr, checked for patency and placement, no residuals noted. Pt has R hand G 20, SL, flushed, patent, clean, dry, & intact w/ no signs of infection/ infiltration noted. Provided comfort and safety measures. Call light placed w/in reached. Bed kept low & in locked position. Will turn, reposition & offload heels as per protocol. Will continue to monitor. Addendum: 08/14/16 at 0722 by JESICA ALONSO RN CORRECTION: Pt has NGT on L nares.
[2016-08-13 08:00] VITALS: BP 137/62
[2016-08-13] MEDS: PANTOPRAZOLE 40 MG TABLET.DR PO SCH (08:44)
[2016-08-13] MEDS: MULTIVIT, IRON, MIN NO. 8, FA 1 TAB TABLET PO SCH (08:44)
[2016-08-13] MEDS: METOPROLOL TARTRATE 25 MG TABLET PO SCH ×2 (08:44→16:29)
[2016-08-13] MEDS: DOCUSATE SODIUM 100 MG CAPSULE PO SCH (08:44)
[2016-08-13] MEDS: Z GUARD REMEDY 2 OZ OINT TP PRN (08:45)
[2016-08-13] MEDS ORDERED: Medication Not On Formulary EA (Cran/Vitc/Mannose/Inulin/Brom (Uti-Stat Liquid) 30 ML) PO SCH (09:00)
--- NOTE | 2016-08-13 10:26 | NUR ---
RN NOTES: Pt seen & examined by dr. Cheung.
--- NOTE | 2016-08-13 10:38 | NUR ---
DR. DEAN EVARNOLATED PT. AND ORDERED TO GET CONSENT FOR PEG,MESSAGE LEFT TO PUBLIC GUARDIAN [phone].
[2016-08-13] MEDS: CEFTRIAXONE 1 G in IV D5W 50 ML IV SCH (14:13)
[2016-08-13 16:00] VITALS: BP 122/75
[2016-08-13] MEDS: RIVAROXABAN 10 MG TABLET PO SCH (16:30)
--- NOTE | 2016-08-13 18:37 | NUR ---
RN CLOSING NOTES: No acute changes noted w/in shift. On O2 at 3lpm/NC, no SOB, saturating at 100%. NGT continuous feeding Fibersource at 20 cc/hr, tolerated well, no residuals upon checking. Pt R hand G 20, SL, flushed, patent, clean, dry, & intact w/ no signs of infection/ infiltration noted. Kept well rested & comfortable. Call light placed w/in reached. Bed kept low & in locked position. Turned, repositioned & offloaded heels. Wound care done. Will endorse to PM RN for BLACK.
--- NOTE | 2016-08-13 19:15 | NUR ---
RN INITIAL NOTES RECEIVED PATIENT IN BED, NONVERBAL, OBTUNDED, ABLE TO OPEN EYES SPONTANEOUSLY AND WITH STIMULI, POOR EYE TRACKING NOTED. PATIENT WITH NO ACUTE DISTRESS OBSERVED. ON 2LPM OF O2 VIA NC, RESPIRATION IS EVEN, UNLABORED, NO SOB. WITH L NARE NGT IN PLACE, PLACEMENT VERIFIED WITH AUSCULTATION, NO SIGNS OF ASPIRATION NOTED, HOB ELEVATED, NGT FLUSHED AND KEPT PATENT. FIBERSOURCE INFUSING WELL AT 20CC/HR. R HAND G20, FLUSHED AND PATENT, NO SIGNS OF INFILTRATION NOTED. R HIP SURGICAL DRESSING INTACT, NO DISCHARGED AND NO BLEEDING NOTED, STILL NOTED TO BE SWOLLEN, NO REDNESS ON SITE. PATIENT REPOSITIONED FOR COMFORT. SAFETY ENSURED. BED IN LOW AND LOCKED POSITION. WILL MONITOR CLOSELY.
[2016-08-13 20:00] VITALS: BP 127/65
--- NOTE | 2016-08-13 20:00 | NUR ---
RN NOTES CALLED THE PUBLIC GUARDIAN OFFICE AT , LEFT A VOICE MESSAGE WITH REGARDS TO THE PROCEDURE CONSENT RECOMMENDED BY MD FOR THE PATIENT. WILL ENDORSE ACCORDINGLY.
[2016-08-14 04:00] VITALS: BP 121/82
[2016-08-14] MEDS: FIBERSOURCE HN 1,000 ML BOTTLE GT PRN (05:10)
--- NOTE | 2016-08-14 06:35 | NUR ---
RN CLOSING NOTES PATIENT WITH NO ACUTE DISTRESS OBSERVED OVERNIGHT. PATIENT MONITORED CLOSELY FOR ANY INDICATIONS OF PAIN AND DISCOMFORT. PATIENT SLEPT COMFORTABLY THROUGH THE NIGHT, NO RESPIRATORY DISTRESS. PATIENT SATURATED WELL AT 2LPM OF O2 VIA NC, AT 100%. L NARE NGT, FLUSHED AND KEPT PATENT, FEEDING TOLERATED WELL WITH NO RESIDUAL. PATIENT KEPT CLEAN AND DRY. TURNED AND REPOSITIONED [id number]. HOB ELEVATED. NEEDS ANTICIPATED AND MET. SAFETY AND COMFORT ENSURED. BED IN LOW AND LOCKED POSITION. WILL ENDORSE ACCORDINGLY FOR CONTINUITY OF CARE.
--- NOTE | 2016-08-14 07:15 | NUR ---
RN INITIAL NOTES: Rec'd pt asleep on bed w/ HOB elevated, not in any form of distress. On O2 at 2lpm/NC, no SOB, breathing unlabored. Pt has patent & intact NGT on L nares, on continuous feeding Fibersource at 20 cc/hr, checked for patency and placement, no residuals noted. Pt has R hand G 20, SL, flushed, patent, clean, dry, & intact w/ no signs of infection/ infiltration noted. Provided comfort and safety measures. Call light placed w/in reached. Bed kept low & in locked position. Will turn, reposition & offload heels as per protocol. Will continue to monitor.
[2016-08-14 08:00] VITALS: BP 141/79
[2016-08-14] MEDS: MULTIVIT, IRON, MIN NO. 8, FA 1 TAB TABLET PO SCH (09:00)
[2016-08-14] MEDS: METOPROLOL TARTRATE 25 MG TABLET PO SCH ×2 (09:00→17:24)
[2016-08-14] MEDS: DOCUSATE SODIUM 100 MG CAPSULE PO SCH (09:00)
[2016-08-14] MEDS: PANTOPRAZOLE 40 MG TABLET.DR PO SCH (09:00)
[2016-08-14] MEDS: Z GUARD REMEDY 2 OZ OINT TP PRN (09:01)
[2016-08-14] MEDS: CEFTRIAXONE 1 G in IV D5W 50 ML IV SCH (14:43)
[2016-08-14 16:00] VITALS: BP 135/75
[2016-08-14] MEDS: RIVAROXABAN 10 MG TABLET PO SCH (17:25)
--- NOTE | 2016-08-14 18:00 | NUR ---
RN NOTES: NGT out. NGT reinsertion on R nares done c/o GERA Swain. Noted for positive for gurgling sounds, negative for residuals. CXR done to confirm NGT placement.
--- NOTE | 2016-08-14 18:35 | NUR ---
RN NOTES: Left an urgent voicemail to pt's conservator [phone] for consent (PEG placement) c/o GERA Swain. Call back details provided.
--- NOTE | 2016-08-14 18:53 | NUR ---
RN CLOSING NOTES: No acute changes noted w/in shift. Pt is saturating at 100% on O2 at 2lpm/NC, no SOB noted. New NGT on R nares (on 42 cm) patent & intact. Awaiting for CXR result to confirm placement. R hand G 20, SL, flushed, patent, clean, dry, & intact w/ no signs of infection/ infiltration noted. Kept well rested & comfortable. Call light placed w/in reached. Bed kept low & in locked position. Turned, repositioned & offloaded heels. Wound care done. Pt for poss PEG placement jurgen morning, awaiting call from pt's conservator for consent. Endorsed to PM RN, hold feeding post midnight.
[2016-08-14 20:00] VITALS: BP 133/84
--- NOTE | 2016-08-15 | NUR ---
RN NOTES: THE NG-TUBE IS ADJUSTED BY ADVANCING IT 7-8 CM RECOMMENDED ON THE X-RAY REPORT. VERIFIED BY AUSCULTATION BY THE CHARGE NURSE. PATIENT IS NPO AFTER MIDNIGHT. WILL CONTINUE TO MONITOR.
[2016-08-15 04:00] VITALS: BP 135/93
[2016-08-15 06:50] LABS: BASOPHILS # (AUTO) 0.1 /CMM (0.0-0.2); BASOPHILS % (AUTO) 0.9 % (0.0-2.0); EOSINOPHILS # (AUTO) 0.1 /CMM (0.0-0.7); EOSINOPHILS % (AUTO) 1.9 % (0.0-6.0); HEMATOCRIT 38 % (33-45); HEMOGLOBIN 12.7 g/dL (11.5-14.8); LYMPHOCYTES # (AUTO) 1.8 /CMM (0.8-4.8); LYMPHOCYTES % (AUTO) 23.7 % (20.0-44.0); MEAN CORPUSCULAR HEMOGLOBIN 28 PG (26.0-33.0); MEAN CORPUSCULAR HGB CONC 34 g/dl (31.0-36.0); MEAN CORPUSCULAR VOLUME 84 fL (82-100); MONOCYTES # (AUTO) 0.4 /CMM (0.1-1.30); MONOCYTES % (AUTO) 5.8 % (2.0-12.0); NEUTROPHILS # (AUTO) 5.1 /CMM (1.8-8.9); NEUTROPHILS % (AUTO) 67.7 % (43.0-81.0); PLATELET COUNT (AUTO) 342 /CMM (150-450); RDW COEFFICIENT OF VARIATION 15.8 (11.5-15.0); RED BLOOD CELL COUNT(AUTO) 4.49 MIL/uL (4.0-5.2); WHITE BLOOD COUNT (AUTO) 7.5 K/uL (4.3-11.0)
[2016-08-15 07:19] LABS: CALCIUM, SERUM 8.9 mg/dL (8.5-10.1); CREATININE 0.6 mg/dL (0.6-1.3); POTASSIUM 4.5 mmol/L (3.5-5.1)
[2016-08-15] MEDS: PANTOPRAZOLE 40 MG TABLET.DR PO SCH (07:30)
--- NOTE | 2016-08-15 07:30 | NUR ---
m/s edge kitter: initial assessment received pt in bed with eyes open, non-verbal, just mumbles; unable to comprehend. ngt to right nostril in placement. ngt placement check and patent. pt schedule for peg placement. awaiting for conservator to call back for consent. will f/u today. pt remains npo. reality orientation provided prn. appears comfortable. will continue to monitor.
[2016-08-15 08:00] VITALS: BP 135/74
[2016-08-15] MEDS: METOPROLOL TARTRATE 25 MG TABLET PO SCH ×2 (08:15→16:33)
[2016-08-15] MEDS: MULTIVIT, IRON, MIN NO. 8, FA 1 TAB TABLET PO SCH (08:15)
[2016-08-15] MEDS: DOCUSATE SODIUM 100 MG CAPSULE PO SCH (08:15)
--- NOTE | 2016-08-15 08:30 | NUR ---
m/s rv repair technician: notes nicole (conservator) on the phone and informed her re: schedule for peg placement this afternoon. nicole provided phone consent on procedure, anesthesia, and blood transfusion with another nurse verifying telephone consents.
--- NOTE | 2016-08-15 10:00 | NUR ---
m/s radius grinder: notes turned and repositioned, kept comfortable. pt remains npo. ngt remains clamped. will continue to monitor.
--- NOTE | 2016-08-15 12:40 | NUR ---
m/s heater operator helper: notes to o.r. via bed at this time for peg placement accompanied by o.r. team.
[2016-08-15 14:25] VITALS: BP 137/86
--- NOTE | 2016-08-15 14:25 | NUR ---
m/s diet kitchen cook: s/p peg received pt from recovery room with dx: s/p peg placement. pt awake, but unable to comprehend. kept comfortable. hob elevated. vss; afebrile. reality orientation provided prn. per recovery nurse, dr. kearney will put the orders in the computer. will continue to monitor. Addendum: 08/15/16 at 1439 by SAMUEL NATHANN no ngt noted at this time.
[2016-08-15] MEDS ORDERED: IV SET PRIMARY PUMP SET 1 EA INFUS.SET MC ONE (14:36)
[2016-08-15] MEDS: CEFTRIAXONE 1 G in IV D5W 50 ML IV SCH (14:38)
--- NOTE | 2016-08-15 14:59 | NUR ---
m/s professor of environmental engineering: notes received new orders from dr. kearney with Instructions: < Do not put gauze under G-tube buttress , Do not use Cayden valve , Do not use G-tube for 6 hours , , 1. Scrub G-tube site with hydrogen peroxide & dress with Bacitracin. awaiting more orders. orders acknowledged.
[2016-08-15 16:00] VITALS: BP 152/82
[2016-08-15] MEDS: RIVAROXABAN 10 MG TABLET PO SCH (16:33)
--- NOTE | 2016-08-15 16:33 | NUR ---
m/s supervisor screen printing: notes pm meds held due to unable to use g-tube for [address] rushing's order. called pharmacist to adjust time for 2100.
[2016-08-15] MEDS ORDERED: MAG HYDROX/AL HYDROX/SIMETH 30 ML UDC GT PRN (16:43)
[2016-08-15] MEDS ORDERED: MAGNESIUM HYDROXIDE 30 ML UDC GT PRN ×2 (16:44)
[2016-08-15] MEDS ORDERED: SENNOSIDES 8.6 MG TABLET GT PRN (16:49)
[2016-08-15] MEDS ORDERED: DOCUSATE SODIUM LIQ 100 MG/10 ML UDC GT SCH (17:00)
[2016-08-15] MEDS ORDERED: ACETAMINOPHEN 650 MG/20 ML UDC- FOR SA PATIENTS ONLY PO PRN (17:00)
[2016-08-15] MEDS ORDERED: DOCUSATE SODIUM LIQ 100 MG/10 ML UDC GT PRN ×2 (17:00)
[2016-08-15] MEDS ORDERED: ACETAMINOPHEN 650 MG/20.3 ML UDC PO PRN (17:00)
[2016-08-15] MEDS ORDERED: ACETAMINOPHEN 650 MG/20.3 ML UDC GT PRN (17:00)
[2016-08-15] MEDS ORDERED: PHARMACY TO CHANGE PO MEDS TO GT/NG XX PRN (17:00)
--- NOTE | 2016-08-15 19:00 | NUR ---
m/s regulatory affairs coordinator: notes pt remains npo at this time. g-tube feeding to start at 2100 per order. report given to lily (roma) for continuity of care. needs attended. in no apparent distress noted.
[2016-08-15 20:00] VITALS: BP 147/80
--- NOTE | 2016-08-15 20:00 | NUR ---
RN NOTES RECEIVED PX AWAKE, NON VERBAL, ONLY MOANS, NOT FOLLOWING COMMANDS, ON NC AT 2 LPM, WITH G TUBE, POSITIVE PLACEMENT SITE NO S/SX BLEEDING, PIV FLUSHED WITH SALINE, PATENT AND INTACT; WITH DIAPER ON, SEE SKIN FLOWSHEET FOR SKIN ASSESSMENT; BILAT DVT PUMPS, HEELS OFFLOADED, REPOSITIONED PX IN BED WITH HOB AT 30 ANGLE, STARTED TUBE FEEDING VIA G TUBE AT 20 ML/HR; NO S/SX OF DISTRESS, RESP EVEN AND UNLABORED.
[2016-08-15] MEDS: METOPROLOL TARTRATE 25 MG TABLET GT SCH (20:39)
[2016-08-15] MEDS: FIBERSOURCE HN 1,000 ML BOTTLE GT PRN (20:48)
[2016-08-15] MEDS ORDERED: RIVAROXABAN 10 MG TABLET GT SCH (21:00)
--- NOTE | 2016-08-15 21:00 | NUR ---
RN NOTES DUE MEDS GIVEN; TUBE FEEDING TOLERATED, NO LEAK ON G TUBE SITE.
--- NOTE | 2016-08-16 00:40 | NUR ---
RN NOTES NEURO STATUS UNCHANGED; AWAKE, BUT NOT FOLLOWING COMMANDS; TUBE FEEDING TOLERATED, NO LEAK FROM G TUBE SITE.
[2016-08-16 04:00] VITALS: BP 118/77
--- NOTE | 2016-08-16 06:06 | NUR ---
RN NOTES PX CONDITION AND NEURO STATUS UNCHANGED; PX MORE AWAKE, FOLLOWS COMMANDS, VERBAL BUT UNCLEAR WORDS; NOT IN DISTRESS, RESP EVEN AND UNLABORED; REPOSITIONED WITH HOB AT 30 ANGLE, NO NEW SKIN BREAKDOWN, SKIN INTACT; RIGHT HIP DRESSING REMAINED CLEAN, DRY AND INTACT; TUBE FEEDING TOLERATED, NO LEAK FROM G TUBE SITE, G TUBE SITE APPEARS CLEAN AND DRY. WILL ENDORSE TO NEXT RN. Addendum: 08/16/16 at 0613 by ALTAGRACIA PRETTY RN BEDBATH RENDERED, ORAL CARE GIVEN, PROCEDURE TOLERATED.
[2016-08-16 07:00] LABS: BASOPHILS # (AUTO) 0.1 /CMM (0.0-0.2); BASOPHILS % (AUTO) 0.8 % (0.0-2.0); EOSINOPHILS # (AUTO) 0.2 /CMM (0.0-0.7); EOSINOPHILS % (AUTO) 2.1 % (0.0-6.0); HEMATOCRIT 34 % (33-45); HEMOGLOBIN 11.6 g/dL (11.5-14.8); LYMPHOCYTES # (AUTO) 1.6 /CMM (0.8-4.8); LYMPHOCYTES % (AUTO) 21.4 % (20.0-44.0); MEAN CORPUSCULAR HEMOGLOBIN 28 PG (26.0-33.0); MEAN CORPUSCULAR HGB CONC 34 g/dl (31.0-36.0); MEAN CORPUSCULAR VOLUME 84 fL (82-100); MONOCYTES # (AUTO) 0.5 /CMM (0.1-1.30); MONOCYTES % (AUTO) 6.8 % (2.0-12.0); NEUTROPHILS # (AUTO) 5.1 /CMM (1.8-8.9); NEUTROPHILS % (AUTO) 68.9 % (43.0-81.0); PLATELET COUNT (AUTO) 347 /CMM (150-450); RDW COEFFICIENT OF VARIATION 15.6 (11.5-15.0); RED BLOOD CELL COUNT(AUTO) 4.09 MIL/uL (4.0-5.2); WHITE BLOOD COUNT (AUTO) 7.4 K/uL (4.3-11.0)
[2016-08-16 07:07] LABS: CALCIUM, SERUM 8.6 mg/dL (8.5-10.1); CREATININE 0.7 mg/dL (0.6-1.3); POTASSIUM 4.5 mmol/L (3.5-5.1)
--- NOTE | 2016-08-16 07:33 | NUR ---
MS RN NOTE PATIENT IN BED , ALL NEEDS ATTENDED RESTING COMFORTABLY , OPEN HER EYES WHEN CALLING HER NAME , ON [employer], WITH GTUBE FEEDING ORDERED , KEEP HOB ELEVATED AT ALL TIME ,NO RESIDUAL NOTED , RT HAND AND LT HAND HL INTACT ,NO S\S INFECTION NOTED , BED IN LOWEST AND LOCKED POSITION, NO SOB NOTED AT THIS TIME, WITH DVT PUMPS BOTH LEGS , ON 2L NC RESPIRATION UNLABORED , RT HIP DRESSING INTACT ,WILL CONT TO MONITOR CLOSELY
[2016-08-16 08:00] VITALS: BP 128/71
[2016-08-16] MEDS: METOPROLOL TARTRATE 25 MG TABLET GT SCH (08:05)
[2016-08-16 08:14] VITALS: BP 128/71
[2016-08-16] MEDS ORDERED: MULTIVITAMIN LIQ 5 ML UDC GT SCH (09:00)
[2016-08-16] MEDS ORDERED: PANTOPRAZOLE 40 MG/PACK PACK NG SCH (09:00)
--- NOTE | 2016-08-16 10:09 | NUR ---
MS RN NOTE SEEN BY DR DEAN WITH ORDER TO D/C SNF , ORDER CARRIED OUT
--- NOTE | 2016-08-16 12:50 | NUR ---
MS RN NOTE CALLED TO SNF, SPOKE WITH RUDDY CONTRERAS; REPORT GIVEN
[2016-08-16] MEDS: CEFTRIAXONE 1 G in IV D5W 50 ML IV SCH (13:34)
--- NOTE | 2016-08-16 14:30 | NUR ---
MS RN NOTE AMBULANCE ARRIVED .REPORT GIVEN ,WENT TO SNF WITH STABLE CONDITION ,HL ON LT HAND INTACT NO S\S INFECTION NOTED
== END 2016-08-16 14:42 | DRG 480 ==
LOC: ER 14:44 → TELE1 16:22 → MEDSG1 18:40
PROVIDERS: ADMIT Internal Medicine; ATTEND Internal Medicine
PROC: 0QS604Z Reposition Right Upper Femur with Internal Fixation Device, Open Approach (ICD-10-PCS; principal; 2016-08-10 09:05)
PROC: 30233N1 Transfusion of Nonautologous Red Blood Cells into Peripheral Vein, Percutaneous Approach (ICD-10-PCS; 2016-08-11)
PROC: 0DH63UZ Insertion of Feeding Device into Stomach, Percutaneous Approach (ICD-10-PCS; 2016-08-15)
DX: M80.851A Other osteoporosis with current pathological fracture, right femur, initial encounter for fracture (principal); G93.40 Encephalopathy, unspecified; E43 Unspecified severe protein-calorie malnutrition; N17.0 Acute kidney failure with tubular necrosis; N39.0 Urinary tract infection, site not specified; D72.829 Elevated white blood cell count, unspecified; F03.90 Unspecified dementia, unspecified severity, without behavioral disturbance, psychotic disturbance, mood disturbance, and anxiety; I10 Essential (primary) hypertension; E83.42 Hypomagnesemia; R13.10 Dysphagia, unspecified; Z79.899 Other long term (current) drug therapy; X58.XXXA Exposure to other specified factors, initial encounter; Y93.9 Activity, unspecified; Y92.129 Unspecified place in nursing home as the place of occurrence of the external cause; Y99.9 Unspecified external cause status; E88.09 Other disorders of plasma-protein metabolism, not elsewhere classified; M62.50 Muscle wasting and atrophy, not elsewhere classified, unspecified site; R73.9 Hyperglycemia, unspecified; D64.9 Anemia, unspecified; Z96.642 Presence of left artificial hip joint
CPT/HCPCS: 36415; 43246; 71010-TC; 73501; 73510-TC; 80048-TC; 80053-TC; 80061-TC; 80076-TC; 81000-TC; 82728-TC; 83540-TC; 83605-TC; 83735-TC; 84100-TC; 84484-TC; 85025-TC; 85027-TC; 85730-TC; 86850-TC; 86921-TC; 87040-TC; 87081-TC; 87086-TC; 92526; 92611-TC; 93307-TC; 94799-TC; 97001-TC; 97110-TC; 97530-TC; A4606; A6209; A6253; A6402; A6403; C1713; J0696; J3010; J3475; J3480; J3490; J7030; J7050; J7060; J7120; P9016-BL; Z7610

== ENCOUNTER 2019-04-10 17:21 | Inpatient (IN) | payer MEDICARE, OTHER, MEDICAID ==
[~2019-04-10] VITALS: Ht 167.6 cm; Wt 54.0 kg
[~2019-04-10 17:21] MED LIST changes: +ACET-868 PO; +ALBU2.5V13 NEB; -ALPR-323 PO; +BISA10SU8 RC; +CRAN3875 PO; +DOCU100C36 PO; -DOCU50LI13 PO; -ESCI20TA PO; +IPRA0.2S49 NEB; -LISI40TA4 PO; -LORA0.5T PO; +MAGN400O6 PO; -METO100T3 PO; +METO25TA6 PO; +MULT-213 PO; +NA P133E RC; -OLAN5TAB3 PO; -QUET25TA PO; -RIVA3CAP5 PO; -ZOLP5TAB7 PO
--- NOTE | 2019-04-10 17:26 | NUR ---
INA FROM [facility] C/O R LEG INJURY NOTED R LEG DEFORMITY. TO ER BED 3, HOOKED TO MONITOR, CHANGED TO HOSPITAL GOWN, PROVIDED W WARM BLANKET, PATIENT AOx0 , AWAITING MD MONSON.
[2019-04-10 18:19] LABS: BASOPHILS # (AUTO) 0.1 /CMM (0.0-0.2); BASOPHILS % (AUTO) 0.3 % (0.0-2.0); EOSINOPHILS % (AUTO) 0.1 % (0.0-6.0); HEMATOCRIT 48 % (33-45); HEMOGLOBIN 15.8 g/dL (11.5-14.8); LYMPHOCYTES # (AUTO) 1.1 /CMM (0.8-4.8); LYMPHOCYTES % (AUTO) 4.8 % (20.0-44.0); MEAN CORPUSCULAR HGB CONC 33 g/dl (31.0-36.0); MEAN CORPUSCULAR VOLUME 87 fL (82-100); MONOCYTES # (AUTO) 1.1 /CMM (0.1-1.30); MONOCYTES % (AUTO) 4.6 % (2.0-12.0); NEUTROPHILS # (AUTO) 20.7 /CMM (1.8-8.9); NEUTROPHILS % (AUTO) 90.2 % (43.0-81.0); PLATELET COUNT (AUTO) 284 /CMM (150-450); RED BLOOD CELL COUNT(AUTO) 5.52 MIL/uL (4.0-5.2)
[2019-04-10 18:30] LABS: CALCIUM, SERUM 9.9 mg/dL (8.5-10.1); CREATININE 0.8 mg/dL (0.6-1.3); POTASSIUM 4.3 mmol/L (3.5-5.1)
--- NOTE | 2019-04-10 19:18 | NUR ---
URINE SAMPLE SENT TO LAB
--- NOTE | 2019-04-10 19:30 | NUR ---
REPORT GIVEN TO MARIBETH CONTRERAS FOR BLACK
--- NOTE | 2019-04-10 19:33 | NUR ---
LACTIC ACID 3.5 MD AWARE
[2019-04-10 19:43] LABS: APPEARANCE,URINE Clear (CLEAR); BILIRUBIN,URINE Negative (NEGATIVE); BLOOD, URINE Negative Ery/uL (NEGATIVE); COLOR,URINE Yellow (YELLOW); KETONES,URINE Negative (NEGATIVE); LEUKOCYTE ESTERASE ,URINE Negative (NEGATIVE); NITRITE, URINE Negative (NEGATIVE); PROTEIN,URINE Negative (NEGATIVE); UGLUCOSE Negative (NEGATIVE); UROBILINOGEN,URINE 0.2 EU/dL (0.2)
[2019-04-10] MEDS ORDERED: IV NS 0.9% 1,000 ML BAG IV ONE (20:00)
[2019-04-10] MEDS ORDERED: PIPERACILLIN /TAZOBACTAM 3.375 G in IV D5W 50 ML IV ONE (20:00)
--- NOTE | 2019-04-10 20:04 | NUR ---
CALLED [facility] FOR TELE BED
[2019-04-10] MEDS ORDERED: PIPERACILLIN /TAZOBACTAM 3.375 G VIAL IV ONE ×2 (20:19→23:29)
--- NOTE | 2019-04-10 20:34 | NUR ---
CALLED [facility] FOR A DR TO DR. DR KAY SPEAKING WITH MIRANDA HYATT
[2019-04-10] MEDS ORDERED: IV NS 0.9% 1,000 ML IV PRN (20:36)
--- NOTE | 2019-04-10 20:57 | NUR ---
REPORT GIVEN TO DIANE DUMONT FOR BLACK
[2019-04-10] MEDS ORDERED: MORPHINE SULFATE INJ 2 MG/ML DISP.SYRIN IV PRN (21:00)
[2019-04-10] MEDS ORDERED: BISACODYL SUPP (10 MG) 10 MG/SUPP.RECT SUPP.RECT RC PRN (21:00)
[2019-04-10] MEDS ORDERED: Z GUARD REMEDY 2 OZ OINT TP PRN (21:00)
[2019-04-10] MEDS ORDERED: CEFTRIAXONE 1 G in IV D5W 50 ML IV SCH (21:00)
[2019-04-10] MEDS ORDERED: HYDROCODONE/APAP 5/325MG 1 EACH TABLET PO PRN (21:00)
[2019-04-10] MEDS ORDERED: ACETAMINOPHEN 325 MG TABLET PO PRN ×2 (21:00)
[2019-04-10] MEDS ORDERED: MAG HYDROX/AL HYDROX/SIMETH 30 ML UDC PO PRN (21:00)
[2019-04-10] MEDS ORDERED: MAGNESIUM HYDROXIDE 30 ML UDC PO PRN ×2 (21:00)
[2019-04-10] MEDS ORDERED: ONDANSETRON HCL/PF 4 MG/2 ML VIAL IVP PRN (21:00)
[2019-04-10] MEDS ORDERED: hydrALAZINE HCL IV 20 MG VIAL IV STA (21:30)
[2019-04-10] MEDS ORDERED: hydrALAZINE HCL IV 20 MG VIAL ONE (21:41)
[2019-04-10 22:00] VITALS: BP 121/81
--- NOTE | 2019-04-10 22:00 | NUR ---
This is an 78 year old female patient who arrives to [facility] from [facility] with a diagnosis of sepsis and right tibial fibula fracture after performance of activities of daily living / bathing / transfering. A splint was placed on the right lower extremity. Consult for Doctor Mcqueen pending. Patient is under the care of Chelsie Recinos. Was given complete bed bath, repositioning, and oxygen via nasal canula. Wound care consultation, dietary consultation request per protocol. Sequential compression device to left lower extremity. Patient vital signs with improvement of reported baseline values from emergency room. Patient needs oral care every four hours. Alfonzo provide peter catheter care per protocol. Given intravenous piggy back of vancomycin and zosyn per orders. Miah Alonzo RN
[2019-04-10 22:11] LABS: BILIRUBIN,DIRECT 0.2 mg/dL (0.0-0.2); BILIRUBIN,TOTAL 0.8 mg/dL (0.2-1.0)
[2019-04-10 22:30] VITALS: BP 120/81
[2019-04-10] MEDS ORDERED: VANCOMYCIN 1.25 GM in IV D5W 250 ML IV ONE (23:00)
[2019-04-10] MEDS ORDERED: VANCOMYCIN 1 GM VIAL ONE (23:28)
[2019-04-10] MEDS: PIPERACILLIN /TAZOBACTAM 3.375 G in IV D5W 50 ML IV SCH (23:36)
[2019-04-11] VITALS: BP 110/89
[2019-04-11 04:00] VITALS: BP 121/63
[2019-04-11] MEDS ORDERED: PIPERACILLIN /TAZOBACTAM 3.375 G VIAL IV ONE (05:29)
[2019-04-11] MEDS: PIPERACILLIN /TAZOBACTAM 3.375 G in IV D5W 50 ML IV SCH ×4 (05:48→23:43)
--- NOTE | 2019-04-11 06:04 | NUR ---
Vital signs stable. Blood work to lab at this time. Will continue to monitor for further needs. Given oral care. Repositioning per protocol. Will endorse to day team registered nurse. Miah Alonzo RN
--- NOTE | 2019-04-11 07:09 | NUR ---
Endorsement to DIANE Mcqueen. Miah Alonzo RN
--- NOTE | 2019-04-11 07:15 | NUR ---
OPEN DEVELOPER OPERATOR NOTES PATIENT IN BED A/OX1-2. NON VERBAL ABLE TO OPEN EYES WHEN NAME CALLED. NO RESIDUAL NOTED FROM G TUBE. PATIENT NPO FOR POSSIBLE PROCEDURE. BED AT THE LOWEST POSITION AND LOCKED, CALL LIGHT WITHIN REACH.
[2019-04-11 07:48] LABS: CALCIUM, SERUM 8.8 mg/dL (8.5-10.1); CREATININE 0.7 mg/dL (0.6-1.3); MAGNESIUM 1.8 mg/dL (1.8-2.4); PHOSPHORUS 2.3 mg/dL (2.5-4.9)
[2019-04-11 08:21] LABS: BASOPHILS % (AUTO) 0.1 % (0.0-2.0); HEMATOCRIT 40 % (33-45); LYMPHOCYTES # (AUTO) 0.6 /CMM (0.8-4.8); LYMPHOCYTES % (AUTO) 3.3 % (20.0-44.0); MEAN CORPUSCULAR HGB CONC 33 g/dl (31.0-36.0); MEAN CORPUSCULAR VOLUME 87 fL (82-100); MONOCYTES # (AUTO) 0.8 /CMM (0.1-1.30); MONOCYTES % (AUTO) 4.7 % (2.0-12.0); NEUTROPHILS # (AUTO) 15.6 /CMM (1.8-8.9); NEUTROPHILS % (AUTO) 91.9 % (43.0-81.0); PLATELET COUNT (AUTO) 173 /CMM (150-450); RED BLOOD CELL COUNT(AUTO) 4.57 MIL/uL (4.0-5.2)
[2019-04-11 08:42] LABS: THYROID STIMULATING HORMONE 0.341 uIU/mL (0.358-3.74)
[2019-04-11] MEDS: DOCUSATE SODIUM 100 MG CAPSULE PO SCH (11:18)
[2019-04-11] MEDS: MULTIVIT W/MINERALS 1 TAB TABLET PO SCH (11:18)
[2019-04-11] MEDS: PANTOPRAZOLE 40 MG VIAL IV SCH (11:19)
[2019-04-11] MEDS: METOPROLOL TARTRATE 25 MG TABLET PO SCH ×2 (11:19→17:56)
[2019-04-11] MEDS ORDERED: POTASSIUM PHOSPHATE MM 7.5 MMOL in IV D5W 100 ML IV SCH (12:00)
[2019-04-11] MEDS ORDERED: FEE PK DOSING 1 MIN EA MC ONE (14:32)
[2019-04-11] MEDS ORDERED: IV 1/2NS 1000 ML 1,000 ML IV ONE (16:30)
--- NOTE | 2019-04-11 16:57 | NUR ---
APPRENTICE MACHINIST OUTSIDE NOTES PER DR SHEN OK TO CONTINUE FEEDING ANG HYDRATION.
[2019-04-11] MEDS ORDERED: VANCOMYCIN 1 GM in IV D5W 250 ML IV SCH (18:00)
--- NOTE | 2019-04-11 19:35 | NUR ---
TRAFFIC ENGINEERING TECHNICIAN NOTES PATIENT IN BED NO SOB OR DISCOMFORT NOTED AT THIS TIME. ENDORSED TO ORGANIZATIONAL RESEARCH CONSULTANT NURSE FOR BLACK.
[2019-04-11 20:00] VITALS: BP 132/48
--- NOTE | 2019-04-11 20:00 | NUR ---
RN NOTE RECEIVED PT IN BED WITH HEAD OF BED ELEVATED. PT SLEEPING WITHOUT SIGNS OF DISTRESS OR DISCOMFORT. NON VERBAL. CURRENTLY ON 4L O2 VIA NC, NO SOB NOTED. INTERIANO CATHETER IN PLACE WITH CLEAR URINE NOTED. TELE MONITORS IN PLACE. JACKIE LIGHT WITHIN REACH. BED IN LOW POSITION. WILL MONITOR.
[2019-04-12] VITALS: BP 99/52
[2019-04-12] MEDS: PIPERACILLIN /TAZOBACTAM 3.375 G in IV D5W 50 ML IV SCH ×4 (06:11→23:01)
[2019-04-12 07:26] LABS: BASOPHILS % (AUTO) 0.3 % (0.0-2.0); EOSINOPHILS % (AUTO) 0.4 % (0.0-6.0); HEMATOCRIT 30 % (33-45); HEMOGLOBIN 10.1 g/dL (11.5-14.8); LYMPHOCYTES # (AUTO) 1.1 /CMM (0.8-4.8); LYMPHOCYTES % (AUTO) 9.6 % (20.0-44.0); MEAN CORPUSCULAR HGB CONC 34 g/dl (31.0-36.0); MEAN CORPUSCULAR VOLUME 86 fL (82-100); MONOCYTES # (AUTO) 0.7 /CMM (0.1-1.30); MONOCYTES % (AUTO) 5.7 % (2.0-12.0); PLATELET COUNT (AUTO) 175 /CMM (150-450); RED BLOOD CELL COUNT(AUTO) 3.48 MIL/uL (4.0-5.2); WHITE BLOOD COUNT (AUTO) 11.9 K/uL (4.3-11.0)
[2019-04-12 08:00] VITALS: BP 126/77
[2019-04-12 08:06] LABS: ALBUMIN 2.6 g/dL (3.4-5.0); CALCIUM, SERUM 8.5 mg/dL (8.5-10.1); CREATININE 0.9 mg/dL (0.6-1.3); PHOSPHORUS 2.5 mg/dL (2.5-4.9); POTASSIUM 3.6 mmol/L (3.5-5.1)
[2019-04-12] MEDS: METOPROLOL TARTRATE 25 MG TABLET PO SCH ×2 (09:00→17:31)
[2019-04-12] MEDS: MULTIVIT W/MINERALS 1 TAB TABLET PO SCH (09:00)
[2019-04-12] MEDS: DOCUSATE SODIUM 100 MG CAPSULE PO SCH (09:00)
[2019-04-12] MEDS: PANTOPRAZOLE 40 MG VIAL IV SCH (09:23)
[2019-04-12 12:00] VITALS: BP 126/74
[2019-04-12] MEDS: TWOCAL HN 1,000 ML LIQUID GT PRN (12:37)
[2019-04-12 16:00] VITALS: BP 119/68
--- NOTE | 2019-04-12 18:46 | NUR ---
PT IN BED WITH HEAD OF BED ELEVATED.PT NON VERBAL. CURRENTLY ON 4L O2 VIA NC, NO SOB NOTED. INTERIANO CATHETER IN PLACE WITH GOOD URINE OUTPUT.STARTED FEEDING TODAY, TOLERATED WELL WITH NO RESIDUAL. TELE ST 100'S. JACKIE LIGHT WITHIN REACH. SAFETY PRECAUTIONS IN PLACE . WILL ENDORSE TO NEXT SHIFT FOR BLACK.
--- NOTE | 2019-04-12 19:05 | NUR ---
RN OPENING NOTES: RECEIVED BEDSIDE REPORT FROM AM SHIFT NURSE. NO SOB. NO S/S OF PAIN. HOB ELEVATED. ON GTF, TOLERATING WELL, NO RESIDUALS. FC INTACT AND PATENT, DRAINING CLEAR YELLOW URINE. ON DEVELOPER PROGRAMMER, SINUS TACHY 90s. IV ACCESS (R) FA G20 AND (L) FA G20 INTACT, PATENT, AND FLUSHING WELL. SAFETY PRECAUTIONS IMPLEMENTED. CALL LIGHT PLACED WITHIN REACH. WILL CONT. TO MONITOR.
[2019-04-12 20:00] VITALS: BP 110/62
[2019-04-13] VITALS: BP 110/50
[2019-04-13 04:00] VITALS: BP 127/66
[2019-04-13] MEDS: PIPERACILLIN /TAZOBACTAM 3.375 G in IV D5W 50 ML IV SCH ×4 (05:04→23:00)
[2019-04-13 06:40] LABS: BASOPHILS % (AUTO) 0.3 % (0.0-2.0); EOSINOPHILS % (AUTO) 0.4 % (0.0-6.0); HEMATOCRIT 27 % (33-45); HEMOGLOBIN 9.2 g/dL (11.5-14.8); LYMPHOCYTES # (AUTO) 0.6 /CMM (0.8-4.8); LYMPHOCYTES % (AUTO) 7.2 % (20.0-44.0); MEAN CORPUSCULAR HGB CONC 34 g/dl (31.0-36.0); MEAN CORPUSCULAR VOLUME 86 fL (82-100); MONOCYTES # (AUTO) 0.4 /CMM (0.1-1.30); MONOCYTES % (AUTO) 4.8 % (2.0-12.0); NEUTROPHILS # (AUTO) 7.9 /CMM (1.8-8.9); NEUTROPHILS % (AUTO) 87.3 % (43.0-81.0); PLATELET COUNT (AUTO) 170 /CMM (150-450); RED BLOOD CELL COUNT(AUTO) 3.15 MIL/uL (4.0-5.2)
[2019-04-13] MEDS: TWOCAL HN 1,000 ML LIQUID GT PRN (07:00)
[2019-04-13 07:04] LABS: CALCIUM, SERUM 7.9 mg/dL (8.5-10.1); CREATININE 0.8 mg/dL (0.6-1.3); POTASSIUM 3.7 mmol/L (3.5-5.1)
--- NOTE | 2019-04-13 07:25 | NUR ---
RN CLOSING NOTES: HAND OFF REPORT GIVEN TO AM SHIFT NURSE. PATIENT ASLEEP BUT EASILY AROUSABLE. NONVERBAL. NO RESPIRATORY DISTRESS. NO S/S OF PAIN. ENDORSED TO AM SHIFT NURSE FOR CONTINUITY OF CARE.
--- NOTE | 2019-04-13 07:30 | NUR ---
INTERIOR SPECIALIST AM NOTES: RECEIVED PATIENT IN BED, OBTUNDED, ON 4L O2 NASAL CANULA, NO SOB. SINUS TACHY ON MONITOR, NO SIGNS OF PAIN, WITH LFA G 20 AND RT FA G 20 IV ACCESS, BOTH FLUSHES WELL, BOTH SITES CLEAR. ON GTF, TWO JACKIE HN 45 ML/HR, TOLERATING WELL, NO RESIDUALS. FC INTACT AND PATENT, DRAINING CLEAR YELLOW URINE. SEE NURSING FLOWSHEET FOR SKIN ISSUES. HOB ELEVATED. SAFETY PRECAUTIONS IMPLEMENTED. CALL LIGHT PLACED WITHIN REACH. WILL CONT. TO MONITOR.
[2019-04-13 08:00] VITALS: BP 139/70
[2019-04-13 08:57] LABS: IRON, SERUM 11 ug/dl (50-175); TOTAL IRON BINDING CAPACITY 139 ug/dl (250-450)
[2019-04-13] MEDS: MULTIVIT W/MINERALS 1 TAB TABLET PO SCH (09:28)
[2019-04-13] MEDS: DOCUSATE SODIUM 100 MG CAPSULE PO SCH (09:28)
[2019-04-13] MEDS: METOPROLOL TARTRATE 25 MG TABLET PO SCH ×2 (09:28→17:00)
[2019-04-13] MEDS: PANTOPRAZOLE 40 MG VIAL IV SCH (09:28)
--- NOTE | 2019-04-13 09:30 | NUR ---
RN NOTES DUE MEDS GIVEN
[2019-04-13 09:41] LABS: FERRITIN 200 ng/mL (8-388)
[2019-04-13 16:00] VITALS: BP 112/57
[2019-04-13] MEDS: FERROUS SULFATE (325 MG) 325 MG/TAB TABLET PO SCH (17:32)
--- NOTE | 2019-04-13 18:47 | NUR ---
RN CLOSING NOTES: PATIENT IN BED, OBTUNDED, ON 4L O2 NASAL CANULA, NO SOB. NO SIGNS OF PAIN, WITH LFA G 20 AND RT FA G 20 IV ACCESS, BOTH FLUSHES WELL, BOTH SITES CLEAR. ON GTF, TWO JACKIE HN 45 ML/HR, TOLERATING WELL, NO RESIDUALS. FC INTACT AND PATENT, DRAINING CLEAR YELLOW URINE. 500 ML TOTAL OUTPUT. SEE NURSING FLOWSHEET FOR SKIN ISSUES. HOB ELEVATED. SAFETY PRECAUTIONS IMPLEMENTED. CALL LIGHT PLACED WITHIN REACH. TURNED AND REPOSITIONED. PM CARE DONE. ALL NEEDS MET. WILL ENDORSE TO NEXT SHIFT FOR BLACK.
--- NOTE | 2019-04-13 19:15 | NUR ---
RN OPENING NOTES: RECEIVED BEDSIDE REPORT FROM AM SHIFT NURSE. NO SOB. NO S/S OF PAIN. HOB ELEVATED AT 45 DEGREES. ON GTF, TOLERATING WELL, NO RESIDUALS. FC INTACT AND PATENT, DRAINING CLEAR YELLOW URINE. IV ACCESS (R) FA G20 AND (L) FA G20 INTACT, PATENT, AND FLUSHING WELL. SAFETY PRECAUTIONS IMPLEMENTED. BED LOCKED AND IN LOWEST POSITION. SIDE RAILS UP X 2. CALL LIGHT PLACED WITHIN REACH. WILL CONT. TO MONITOR.
[2019-04-13 20:00] VITALS: BP 144/80
[2019-04-14 04:00] VITALS: BP 118/40
[2019-04-14] MEDS: TWOCAL HN 1,000 ML LIQUID GT PRN (04:07)
--- NOTE | 2019-04-14 07:00 | NUR ---
RN CLOSING NOTES: PATIENT ASLEEP BUT EASILY AROUSABLE. NONVERBAL. NO RESPIRATORY DISTRESS. NO S/S OF PAIN. SAFETY PRECAUTIONS IMPLEMENTED. XAVIER PICC LINE INTACT, PATENT, AND FLUSHING WELL RUNNING 1/2 NS AT 100 MLS/HR, TOLERATING WELL. WILL ENDORSE TO AM SHIFT NURSE FOR CONTINUITY OF CARE.
[2019-04-14 07:23] LABS: BASOPHILS % (AUTO) 0.5 % (0.0-2.0); EOSINOPHILS % (AUTO) 0.7 % (0.0-6.0); HEMATOCRIT 28 % (33-45); HEMOGLOBIN 9.4 g/dL (11.5-14.8); LYMPHOCYTES # (AUTO) 0.8 /CMM (0.8-4.8); LYMPHOCYTES % (AUTO) 8.8 % (20.0-44.0); MEAN CORPUSCULAR HGB CONC 34 g/dl (31.0-36.0); MEAN CORPUSCULAR VOLUME 87 fL (82-100); MONOCYTES # (AUTO) 0.4 /CMM (0.1-1.30); MONOCYTES % (AUTO) 4.1 % (2.0-12.0); NEUTROPHILS % (AUTO) 85.9 % (43.0-81.0); PLATELET COUNT (AUTO) 216 /CMM (150-450); WHITE BLOOD COUNT (AUTO) 9.4 K/uL (4.3-11.0)
[2019-04-14 07:28] LABS: CALCIUM, SERUM 8.5 mg/dL (8.5-10.1); CREATININE 0.7 mg/dL (0.6-1.3); POTASSIUM 3.9 mmol/L (3.5-5.1)
--- NOTE | 2019-04-14 07:30 | NUR ---
RN AM NOTES: RECEIVED PATIENT IN BED, OBTUNDED, ON 4L O2 NASAL CANULA, NO SOB. NO SIGNS OF PAIN, WITH LFA G 20 AND RT FA G 20 IV ACCESS, BOTH FLUSHES WELL, BOTH SITES CLEAR. ON GTF, TWO JACKIE HN 45 ML/HR, TOLERATING WELL, NO RESIDUALS. FC INTACT AND PATENT, DRAINING CLEAR YELLOW URINE. SEE NURSING FLOWSHEET FOR SKIN ISSUES. HOB ELEVATED. SAFETY PRECAUTIONS IMPLEMENTED. CALL LIGHT PLACED WITHIN REACH. WILL CONT. TO MONITOR.
[2019-04-14 08:00] VITALS: BP 130/78
[2019-04-14] MEDS ORDERED: FERR325T28 PO (09:03)
[2019-04-14] MEDS: MULTIVIT W/MINERALS 1 TAB TABLET PO SCH (09:22)
[2019-04-14] MEDS: DOCUSATE SODIUM 100 MG CAPSULE PO SCH (09:22)
[2019-04-14] MEDS: PANTOPRAZOLE 40 MG VIAL IV SCH (09:22)
[2019-04-14] MEDS: FERROUS SULFATE (325 MG) 325 MG/TAB TABLET PO SCH (09:22)
[2019-04-14 09:23] VITALS: BP 130/78
[2019-04-14] MEDS: METOPROLOL TARTRATE 25 MG TABLET PO SCH (09:23)
--- NOTE | 2019-04-14 09:30 | NUR ---
RN NOTES DUE MEDS GIVEN
--- NOTE | 2019-04-14 14:10 | NUR ---
JANITOR AND CLEANER NOTES PATIENT DISCHARGED TO [facility] PER MD IN STABLE CONDITION. PROVIDED DC INSTRUCTIONS, MED RECON LIST AND HEALTH TEACHINGS. PT TO FOLLOW UP WITH PCP PER FACILITY PROTOCOL. IV ACCESS REMOVED, NO BLEEDING, INTERIANO CATH IN PLACE 400 ML OUTPUT, PHOTOS OF SKIN ISSUES TAKEN, PT WITH LEG CAST/SLING IN PLACE. G TUBE FLUSHED AND CLAMPED. NO BELONGINGS, ALL PAPERWORKS SIGNED. REPORT GIVEN TO CADEN AT FACILITY EARLIER. WILL BE TRANSPORTED BY 2 AMBULANCE CREW TO FACILITY.
== END 2019-04-14 14:10 | DRG 871 ==
LOC: ER 17:31 → TELE1 20:15 → MEDSG1 04-13 10:12
PROVIDERS: ADMIT Registered Nurse; ATTEND Nurse Practitioner Acute Care
DX: A41.9 Sepsis, unspecified organism (principal); G92 Toxic encephalopathy; S82.201A Unspecified fracture of shaft of right tibia, initial encounter for closed fracture; N39.0 Urinary tract infection, site not specified; E44.0 Moderate protein-calorie malnutrition; E87.2 Acidosis; E86.0 Dehydration; G30.9 Alzheimer's disease, unspecified; F02.80 Dementia in other diseases classified elsewhere, unspecified severity, without behavioral disturbance, psychotic disturbance, mood disturbance, and anxiety; R65.20 Severe sepsis without septic shock; I16.0 Hypertensive urgency; K56.41 Fecal impaction; S82.401A Unspecified fracture of shaft of right fibula, initial encounter for closed fracture; W23.1XXA Caught, crushed, jammed, or pinched between stationary objects, initial encounter; Y92.129 Unspecified place in nursing home as the place of occurrence of the external cause; D50.9 Iron deficiency anemia, unspecified; I10 Essential (primary) hypertension; R29.6 Repeated falls; E83.42 Hypomagnesemia; D64.9 Anemia, unspecified; R26.9 Unspecified abnormalities of gait and mobility; Z98.890 Other specified postprocedural states; M77.30 Calcaneal spur, unspecified foot; Z96.642 Presence of left artificial hip joint; Z79.899 Other long term (current) drug therapy
CPT/HCPCS: 36415; 71045-TC; 73552; 73560-TC; 73590-TC; 73600-TC; 73620-TC; 80048-TC; 80061-TC; 80202-TC; 81000-TC; 82040-TC; 82247-TC; 82248-TC; 82728-TC; 83540-TC; 83605-TC; 83735-TC; 84100-TC; 84439-TC; 84443-TC; 84481; 85025-TC; 85730-TC; 87040-TC; 87081-TC; 87086-TC; 93307-TC; 97112-TC; 97530-TC; A4217; A6407; C9113; G0378; J0360; J0696; J2270; J2543; J3370; J3490; J7030; J7040; J7050; J7060

== ENCOUNTER 2019-04-20 11:58 | Inpatient (IN) | payer MEDICARE, OTHER, MEDICAID, BC ==
[2019-04-20] VITALS (40 sets, daily range): BP systolic 89–129; BP diastolic 56–78
[~2019-04-20] VITALS: Ht 170.2 cm; Wt 59.4 kg
[~2019-04-20 11:58] MED LIST changes: +ACET-868 GT; -ACET-868 PO; +DOCU100C36 GT; -DOCU100C36 PO; +FERR325T28 PO; +MAGN400O6 GT; -MAGN400O6 PO; +METO25TA6 GT; -METO25TA6 PO; +MULT-213 GT; -MULT-213 PO
--- NOTE | 2019-04-20 12:00 | NUR ---
BIBRA 89 FROM [facility], SOB 90% RA ON SCENE, PLACED ON 15LPM VIA NON-REBREATHER MASK, 95% O2 SAT AFTERWARDS. BS 175. TO ER BED 8, PATIENT HOT TO TOUCH, GRUNTING, NOTED W RLE CAST. CHANGED TO HOSP GOWN, COOLING MEASURES DONE. DR VALENZUELA AT BEDSIDE
[2019-04-20] MEDS ORDERED: ACETAMINOPHEN 650 MG/SUPP.RECT RC ONE ×2 (12:05→12:30)
[2019-04-20] MEDS ORDERED: ACET-2605 GT (12:14)
[2019-04-20] MEDS ORDERED: AMIN30LI2 GT (12:14)
[2019-04-20] MEDS ORDERED: VIT500LI GT (12:14)
[2019-04-20] MEDS ORDERED: ZINC1CAP2 GT (12:14)
[2019-04-20] MEDS ORDERED: NUT.237L25 GT (12:14)
[2019-04-20] MEDS ORDERED: FERR300L GT (12:14)
[2019-04-20] MEDS ORDERED: NA P133E RC (12:15)
[2019-04-20 12:25] LABS: BASOPHILS # (AUTO) 0.2 /CMM (0.0-0.2); BASOPHILS % (AUTO) 0.6 % (0.0-2.0); HEMATOCRIT 37 % (33-45); HEMOGLOBIN 11.4 g/dL (11.5-14.8); LYMPHOCYTES # (AUTO) 1.1 /CMM (0.8-4.8); LYMPHOCYTES % (AUTO) 3.3 % (20.0-44.0); MEAN CORPUSCULAR HGB CONC 31 g/dl (31.0-36.0); MEAN CORPUSCULAR VOLUME 90 fL (82-100); MONOCYTES # (AUTO) 1.4 /CMM (0.1-1.30); MONOCYTES % (AUTO) 3.9 % (2.0-12.0); NEUTROPHILS # (AUTO) 32.1 /CMM (1.8-8.9); NEUTROPHILS % (AUTO) 92.2 % (43.0-81.0); PLATELET COUNT (AUTO) 638 /CMM (150-450)
[2019-04-20 12:28] LABS: WHITE BLOOD COUNT (AUTO) 34.8 K/uL (4.3-11.0)
[2019-04-20 12:28] LABS: APPEARANCE,URINE Clear (CLEAR); BILIRUBIN,URINE Negative (NEGATIVE); BLOOD, URINE Trace-intact Ery/uL (NEGATIVE); COLOR,URINE Yellow (YELLOW); KETONES,URINE Trace (NEGATIVE); LEUKOCYTE ESTERASE ,URINE Moderate (NEGATIVE); NITRITE, URINE Positive (NEGATIVE); PH,URINE 5.5 (5.0-8.0); PROTEIN,URINE 100 mg/dl (NEGATIVE); UGLUCOSE Negative (NEGATIVE)
[2019-04-20] MEDS ORDERED: MEROPENEM 1 G in IV NS 0.9% 100 ML IV ONE (12:30)
[2019-04-20] MEDS ORDERED: ASPIRIN 300 MG/SUPP.RECT RC ONE (12:30)
[2019-04-20] MEDS ORDERED: IV NS 0.9% 1,000 ML BAG IV ONE (12:30)
[2019-04-20] MEDS ORDERED: IV NS 0.9% 1,000 ML IV PRN (12:35)
[2019-04-20 12:37] LABS: BACTERIA,URINE Many /HPF (None Seen); RBC,URINE 0-2 /HPF (0-2); SQUAMOUS EPITHELIAL CELL,UR Few /HPF (None Seen); WBC,URINE TOO NUMEROUS TO COUN /HPF (0-3)
--- NOTE | 2019-04-20 12:37 | NUR ---
DR VALENZUELA, RN, RT AT BEDSIDE FOR INTUBATION.
[2019-04-20 12:38] LABS: CALCIUM, SERUM 9.8 mg/dL (8.5-10.1); CARBON DIOXIDE 25 mmol/L (21-32); CHLORIDE 111 mmol/L (98-107); CREATININE 1.5 mg/dL (0.6-1.3); GLUCOSE 169 mg/dL (74-106); SODIUM SERUM 149 mmol/L (136-145); UREA NITROGEN, BLOOD 79 mg/dL (7-18)
--- NOTE | 2019-04-20 12:38 | NUR ---
DIANE PASTRANA CALLED FOR ICU BED
--- NOTE | 2019-04-20 12:40 | NUR ---
ET TUBE SIZE 7.O 22 AT THE LIP +COLOR CHANGE BILATERAL EQUAL LUNG SOUNDS + CHEST RISE
--- NOTE | 2019-04-20 12:40 | NUR ---
RT Pt brought in from [facility] in respiratory distress. Pt orally intubated via 7.0 ETT at 22cm @ lip line. Positive color change, equal chest rise, and bilateral breast sounds noted. Pt placed on mechanical ventilator on charted settings. Vent is plugged into red outlet. Alarms are set and audible w bmv @ hob. No respiratory distress noted @ this time.
[2019-04-20 12:44] LABS: ALANINE AMINOTRANSFERASE 29 U/L (12-78); ALBUMIN 2.7 g/dL (3.4-5.0); ALKALINE PHOSPHATASE 133 U/L (46-116); ASPARTATE AMINOTRANSFERASE 29 U/L (15-37); BILIRUBIN,DIRECT 0.5 mg/dL (0.0-0.2); BILIRUBIN,TOTAL 1.6 mg/dL (0.2-1.0); TOTAL PROTEIN, SERUM 7.5 g/dL (6.4-8.2)
[2019-04-20] MEDS ORDERED: PROPOFOL 100 ML ONE (12:53)
[2019-04-20] MEDS ORDERED: ONDANSETRON HCL/PF 4 MG/2 ML VIAL IVP PRN (13:00)
[2019-04-20] MEDS ORDERED: ETOMIDATE 2 MG/ML VIAL IV ONE (13:00)
[2019-04-20] MEDS ORDERED: MAG HYDROX/AL HYDROX/SIMETH 30 ML UDC PO PRN (13:00)
[2019-04-20] MEDS ORDERED: ZOLPIDEM TARTRATE 5 MG TABLET PO PRN (13:00)
[2019-04-20] MEDS ORDERED: ENOXAPARIN SODIUM 40 MG/0.4 ML DISP.SYRIN SQ SCH (13:00)
[2019-04-20] MEDS ORDERED: SUCCINYLCHOLINE CHLORIDE 20 MG/ML VIAL IV ONE (13:00)
[2019-04-20] MEDS ORDERED: IV NS 0.9% 1,000 ML IV ONE (13:00)
[2019-04-20] MEDS ORDERED: MAGNESIUM HYDROXIDE 30 ML UDC PO PRN (13:00)
[2019-04-20] MEDS ORDERED: ACETAMINOPHEN 325 MG TABLET PO PRN (13:00)
--- NOTE | 2019-04-20 13:07 | NUR ---
ICU 257
[2019-04-20] MEDS: PROPOFOL 100 ML IV PRN ×4 (13:14→22:07)
--- NOTE | 2019-04-20 13:16 | NUR ---
CALLED AND SPOKE WITH DR. MUNGUIA ([facility]) PER DR. CALI S/P INTUBATION WITH NEW ORDER FOR STAT ABG AND "HAVE ICU NURSE NOTIFY ME WITH THE RESULT". ER-RN AWARE. RT CALLED AND MADE AWARE OF ABG ORDER.
--- NOTE | 2019-04-20 13:16 | NUR ---
Note duncan in EDM - 04/20/19 at 1332 by MATILDE CALLED AND SPOKE WITH DR. MUNGUIA ([facility]) PER DR. CALI S/P INTUBATION WITH NEW ORDER FOR STAT ABG AND HAVE ICU NURSE NOTIFY ME FOR THE RESULT. ER-RN AWARE. RT CALLED AND MADE AWARE OF ABG ORDER.
[2019-04-20 13:32] LABS: LYMPHOCYTES % (MANUAL) 7 % (16-48); MONOCYTES % (MANUAL) 6 % (0-11.0); NEUTROPHILS % (MANUAL) 87 (42-76)
[2019-04-20 13:41] LABS: ABG BASE EXCESS -1.5 mmol/L; ABG OXYGEN SATURATION 98.2 % (92.0-98.5); ABG PCO2 28.2 mmHg (35.0-45.0); ABG PH 7.493 (7.350-7.450); ABG PO2 147.7 mmHg (75.0-100.0); AaDO2 249.1 mmHg; COHb 0.1 % (0.5-1.5); MetHb 0.5 % (0.0-1.5); O2Hb 97.6 % (94.0-97.0); PEEP,BG 5 cm H2O; SITE, ABG Right Radial; VT, ABG 500 mL
--- NOTE | 2019-04-20 13:41 | NUR ---
REPORT GIVEN TO ANT OF ICU
--- NOTE | 2019-04-20 13:55 | NUR ---
RT Patient transferred to ICU 257. Vent plugged into red outlet. Alarms set and audible. Will continue to monitor.
[2019-04-20] MEDS: ENOXAPARIN SODIUM 30 MG/0.3 ML DISP.SYRIN SQ SCH (14:20)
--- NOTE | 2019-04-20 15:04 | NUR ---
received pt from ER, Sepsis, Acute respiratory failure, intubated, sedated, on Diprivan at 10mcg, ST, lungs congested, no edema, NPO, v/s stable, no pain, pt cleaned, changed and repositioned, midline inserted.
--- NOTE | 2019-04-20 16:28 | NUR ---
pt is resting in the bed, sedated on Diprivan at 25mcg, good urine output, v/s stable, no pain, pt cleaned, changed and repositioned q2hrs.
[2019-04-20] MEDS: IV NS 0.9% 1,000 ML IV PRN (16:33)
[2019-04-20] MEDS ORDERED: FEE PK DOSING 1 MIN EA MC ONE (18:23)
[2019-04-20] MEDS ORDERED: VANCOMYCIN 1 GM in IV D5W 250 ML IV ONE (19:00)
--- NOTE | 2019-04-20 19:30 | NUR ---
DATA COMMUNICATIONS SOFTWARE CONSULTANT NOTE PATIENT IN BED SEDATED ON DIPRIVAN AT 25 MCG. PATIENT OPENS EYES TO PAINFUL STIMULI. PATIENT ET TUBE IN PLACE AT 11/26. BREATHING EVEN AND UNLABORED. NO S.S OF RESP DISTRESS. PATIENT TURNED AND REPOSITIONED. SAFETY PRECAUTIONS IN PLACE. RN WILL CONTINUE TO MONITIOR.
--- NOTE | 2019-04-20 20:26 | NUR ---
RECEIVED PT ORALLY INTUBATED 7.0 ETT SECURED AT 23CM AT THE LIP VIA ANCHOR FAST. PT TOLERATING VENT SETTINGS. SX'D FOR SML AMT OF THICK WHITE SECRETIONS. VENT ALARMS SET AND AUDIBLE. AMBU BAG AT BEDSIDE. CONTINUE [facility] VENT SUPPORT. Addendum: 04/20/19 at 2026 by TRE LARSON RT Amended: Links added.
[2019-04-20] MEDS: MEROPENEM 500 MG in IV NS 0.9% 50 ML IV SCH (21:22)
[2019-04-21] VITALS (57 sets, daily range): BP systolic 90–132; BP diastolic 51–84
[2019-04-21] MEDS: IV NS 0.9% 1,000 ML IV PRN ×2 (01:00→08:40)
[2019-04-21 04:42] LABS: BASOPHILS % (AUTO) 0.2 % (0.0-2.0); EOSINOPHILS % (AUTO) 0.2 % (0.0-6.0); HEMATOCRIT 26 % (33-45); HEMOGLOBIN 8.1 g/dL (11.5-14.8); LYMPHOCYTES # (AUTO) 1.3 /CMM (0.8-4.8); LYMPHOCYTES % (AUTO) 8.9 % (20.0-44.0); MEAN CORPUSCULAR HGB CONC 32 g/dl (31.0-36.0); MEAN CORPUSCULAR VOLUME 89 fL (82-100); MONOCYTES # (AUTO) 0.6 /CMM (0.1-1.30); MONOCYTES % (AUTO) 3.8 % (2.0-12.0); NEUTROPHILS # (AUTO) 12.6 /CMM (1.8-8.9); NEUTROPHILS % (AUTO) 86.9 % (43.0-81.0); PLATELET COUNT (AUTO) 327 /CMM (150-450); RED BLOOD CELL COUNT(AUTO) 2.88 MIL/uL (4.0-5.2); WHITE BLOOD COUNT (AUTO) 14.5 K/uL (4.3-11.0)
[2019-04-21 04:47] LABS: CREATININE 0.9 mg/dL (0.6-1.3); MAGNESIUM 2.2 mg/dL (1.8-2.4); PHOSPHORUS 3.7 mg/dL (2.5-4.9); POTASSIUM 3.5 mmol/L (3.5-5.1)
--- NOTE | 2019-04-21 07:05 | NUR ---
RN NOTE RECEIVED PT ON BED, ORALLY INTUBATED, SEDATED,PATIENT OPENS EYES TO PAINFUL STIMULI. TOLERATING CURRENT VENT SETTING WELL, ON TELE SR HR IN 90'S , ON DIPRIVAN AT 10 MCG. NS AT 125CC/HR RUNNING VIA R UPPER ARM MIDLINE, SITE CLEAN, DRY, AND INTACT, NO RESPIRATORY DISTRESS NOTED, GT CLAMPED, INTERIANO DRINING TO GRAVITY , SAFETY PRECAUTIONS IN PLACE. SR UP x3, CALL LIGHT WITHIN EASY REACH, WILL CONTINUE TO MONITOR.
--- NOTE | 2019-04-21 07:50 | NUR ---
RT PATIENT REC'D ORALLY INTUBATED ON [facility] VENT WITH ORDERED SETTINGS. ALARMS CHECKED + AUDIBLE. SHALONDA BOWMAN AT HOB. CONT CURRENT PLAN OF CARE. Addendum: 04/21/19 at 1356 by NEHAL RAYA RT Amended: Links added.
[2019-04-21] MEDS: PROPOFOL 100 ML IV PRN ×2 (08:25→15:42)
[2019-04-21] MEDS: MEROPENEM 500 MG in IV NS 0.9% 50 ML IV SCH ×2 (08:26→20:21)
[2019-04-21] MEDS: ENOXAPARIN SODIUM 30 MG/0.3 ML DISP.SYRIN SQ SCH (08:28)
[2019-04-21] MEDS: Z GUARD REMEDY 2 OZ OINT TP PRN (08:30)
[2019-04-21 10:01] LABS: IRON, SERUM 17 ug/dl (50-175); TOTAL IRON BINDING CAPACITY 123 ug/dl (250-450)
[2019-04-21 10:15] LABS: FERRITIN 276 ng/mL (8-388)
[2019-04-21] MEDS: IV 1/2NS 1000 ML 1,000 ML IV PRN ×2 (10:33→20:18)
[2019-04-21] MEDS: PANTOPRAZOLE 40 MG VIAL IV SCH (10:38)
[2019-04-21 10:48] LABS: APPEARANCE,URINE TURBID (CLEAR); BILIRUBIN,URINE NEGATIVE (NEGATIVE); BLOOD, URINE NEGATIVE Ery/uL (NEGATIVE); COLOR,URINE YELLOW (YELLOW); KETONES,URINE NEGATIVE (NEGATIVE); LEUKOCYTE ESTERASE ,URINE TRACE (NEGATIVE); NITRITE, URINE NEGATIVE (NEGATIVE); PH,URINE 5.5 (5.0-8.0); PROTEIN,URINE NEGATIVE (NEGATIVE); UGLUCOSE NEGATIVE (NEGATIVE); UROBILINOGEN,URINE 0.2 EU/dL (0.2)
[2019-04-21 10:56] LABS: URINE TOTAL PROTEIN 37.6 mg/dL (0-11.9)
[2019-04-21 10:58] LABS: BACTERIA,URINE Rare /HPF (None Seen); RBC,URINE 0-2 /HPF (0-2); SQUAMOUS EPITHELIAL CELL,UR 0-2 /HPF (None Seen); YEAST,URINE Few /HPF (None Seen)
[2019-04-21 11:36] LABS: EOSINOPHIL,URINE None Seen
--- NOTE | 2019-04-21 13:00 | NUR ---
RN NOTES DR MICH CASILLAS REGARDING MED RECON .
[2019-04-21] MEDS ORDERED: VANCOMYCIN 0.75 GM in IV D5W 250 ML IV SCH (14:00)
[2019-04-21] MEDS: JEVITY 1.2 CAL 1,000 ML BOTTLE GT PRN (17:13)
[2019-04-21] MEDS: PROSOURCE / PROSTAT (PYXIS) 30 ML UDC GT SCH (17:13)
[2019-04-21 17:20] LABS: OCCULT BLOOD STOOL NEGATIVE (NEGATIVE)
[2019-04-21] MEDS ORDERED: BISACODYL SUPP (10 MG) 10 MG/SUPP.RECT SUPP.RECT RC PRN (17:30)
[2019-04-21] MEDS ORDERED: NA PHOS,M-B/NA PHOS,DI-BA 1 EA ENEMA RC PRN (17:30)
[2019-04-21] MEDS ORDERED: MAGNESIUM HYDROXIDE 30 ML UDC GT PRN (17:30)
[2019-04-21] MEDS ORDERED: ALBUTEROL FS 2.5 MG/0.5 ML VIAL.NEB NEB PRN (17:30)
[2019-04-21] MEDS ORDERED: TWOCAL HN 1,000 ML LIQUID GT SCH (17:30)
--- NOTE | 2019-04-21 18:00 | NUR ---
RN NOTES PT REMAINS INTUBATED, AND SEDATED, ORAL CARE DONE , VSS STABLE, TOLERATING TF WELL, WILL ENDOSE TO TALENT ADVISOR NURSE FOR CONTINUITY OF CARE .
--- NOTE | 2019-04-21 19:20 | NUR ---
RN NOTES RECEIVED PATIENT SEDATED WITH DIPRIVAN ORALLY INTUBATED WITH ETT 7 AND 22 CM AT LIP WITH VENT SETTING AC 12 TV 500 FIO2 30% AND PEEP 5 TOLERATED WELL. SR ON TELE MONITOR. AFEBRILE. F/DRAINED WITH YELLOW COLOR URINE. WITH GTF TOLERATED WELL. KEPT PT CLEAN AND DRY WILL CONTINUE TO MONITOR.
--- NOTE | 2019-04-21 20:34 | NUR ---
RECEIVED PT ORALLY INTUBATED 7.0 ETT SECURED AT 23CM AT THE LIP VIA ANCHOR FAST. PT TOLERATING VENT SETTINGS. SX'D FOR SML AMT OF THICK WHITE SECRETIONS. VENT ALARMS SET AND AUDIBLE. AMBU BAG AT BEDSIDE. CONTINUE [facility] VENT SUPPORT. Addendum: 04/21/19 at 2033 by TRE LARSON RT Amended: Links added.
[2019-04-22] VITALS (43 sets, daily range): BP systolic 96–140; BP diastolic 44–82
[2019-04-22] MEDS: PROPOFOL 100 ML IV PRN ×4 (01:24→18:33)
[2019-04-22 04:49] LABS: BASOPHILS % (AUTO) 0.3 % (0.0-2.0); EOSINOPHILS % (AUTO) 1.6 % (0.0-6.0); HEMATOCRIT 23 % (33-45); HEMOGLOBIN 7.4 g/dL (11.5-14.8); LYMPHOCYTES # (AUTO) 0.7 /CMM (0.8-4.8); LYMPHOCYTES % (AUTO) 7.7 % (20.0-44.0); MEAN CORPUSCULAR HGB CONC 33 g/dl (31.0-36.0); MEAN CORPUSCULAR VOLUME 89 fL (82-100); MONOCYTES # (AUTO) 0.4 /CMM (0.1-1.30); MONOCYTES % (AUTO) 4.2 % (2.0-12.0); NEUTROPHILS # (AUTO) 7.4 /CMM (1.8-8.9); NEUTROPHILS % (AUTO) 86.2 % (43.0-81.0); PLATELET COUNT (AUTO) 299 /CMM (150-450); RED BLOOD CELL COUNT(AUTO) 2.56 MIL/uL (4.0-5.2); WHITE BLOOD COUNT (AUTO) 8.6 K/uL (4.3-11.0)
[2019-04-22 05:03] LABS: ALBUMIN 1.7 g/dL (3.4-5.0); BILIRUBIN,TOTAL 0.6 mg/dL (0.2-1.0); CALCIUM, SERUM 7.5 mg/dL (8.5-10.1); CREATININE 0.7 mg/dL (0.6-1.3); MAGNESIUM 1.8 mg/dL (1.8-2.4); PHOSPHORUS 3.1 mg/dL (2.5-4.9); TOTAL PROTEIN, SERUM 4.9 g/dL (6.4-8.2)
[2019-04-22] MEDS: IV 1/2NS 1000 ML 1,000 ML IV PRN ×3 (05:22→23:42)
--- NOTE | 2019-04-22 07:00 | NUR ---
RN NOTE RECEIVED PT ON BED, ORALLY INTUBATED, SEDATED,PATIENT OPENS EYES TO PAINFUL STIMULI. TOLERATING CURRENT VENT SETTING WELL, ON TELE SR HR IN 80'S , ON DIPRIVAN AT 40 MCG/KG/MIN NS AT 125CC/HR RUNNING VIA R UPPER ARM MIDLINE, SITE CLEAN, DRY, AND INTACT, NO RESPIRATORY DISTRESS NOTED, TF AT 60CC/HR RUNNING VIA GT , PT TOLERATING WELL, INTERIANO DRINING TO GRAVITY , SAFETY PRECAUTIONS IN PLACE. SR UP x3, CALL LIGHT WITHIN EASY REACH, WILL CONTINUE TO MONITOR.
--- NOTE | 2019-04-22 07:18 | NUR ---
RN NOTES NO SIGNIFICANT BLACK THROUGHOUT THE SHIFT. STILL SEDATED WITH DIPRIVAN TITRATED PROTOCOL ORDER. IVF ONGOING @ 125 ML/HR. AFEBRILE. IV ATB TOLERATED WELL. CXR AND LAB DRAWN DONE AT BEDSIDE. KEPT PT CLEAN AND DRY. ENDORSED CONTINUITY OF CARE TO AM NURSE.
[2019-04-22] MEDS: FERROUS SULFATE UDC 300 MG/5 ML UDC GT SCH ×2 (08:06→16:22)
[2019-04-22] MEDS: DOCUSATE SODIUM 100 MG CAPSULE PO SCH (08:07)
[2019-04-22] MEDS: MULTIVIT W/MINERALS 1 TAB TABLET GT SCH (08:07)
[2019-04-22] MEDS: ZINC SULFATE 220 MG CAPSULE GT SCH (08:07)
[2019-04-22] MEDS: MEROPENEM 500 MG in IV NS 0.9% 50 ML IV SCH ×2 (08:07→22:01)
[2019-04-22] MEDS: ENOXAPARIN SODIUM 30 MG/0.3 ML DISP.SYRIN SQ SCH (08:07)
[2019-04-22] MEDS: ASCORBIC ACID 500 MG TABLET GT SCH (08:07)
[2019-04-22] MEDS: PROSOURCE / PROSTAT (PYXIS) 30 ML UDC GT SCH ×2 (08:08→16:22)
[2019-04-22 08:33] LABS: ABG BASE EXCESS -2.4 mmol/L; ABG OXYGEN SATURATION 97.1 % (92.0-98.5); ABG PCO2 27.9 mmHg (35.0-45.0); ABG PH 7.482 (7.350-7.450); ABG PO2 95.4 mmHg (75.0-100.0); AaDO2 85.7 mmHg; COHb 0.4 % (0.5-1.5); MetHb 0.5 % (0.0-1.5); O2Hb 96.2 % (94.0-97.0); PEEP,BG 5 cm H2O; SITE, ABG Right Radial; VT, ABG 500 mL
[2019-04-22] MEDS: PANTOPRAZOLE 40 MG VIAL IV SCH (09:19)
[2019-04-22] MEDS: POTASSIUM CL. PREMIX PERIPHER. 50 ML IV SCH ×3 (10:32→12:39)
[2019-04-22] MEDS ORDERED: VANCOMYCIN 0.75 GM in IV D5W 250 ML IV SCH (12:00)
--- NOTE | 2019-04-22 12:00 | NUR ---
RN NOTES PT STABLE, SEDATED, TOLERATING TF WELL, CONTINUE TO MONITOR.
[2019-04-22] MEDS: JEVITY 1.2 CAL 1,000 ML BOTTLE GT PRN (12:13)
--- NOTE | 2019-04-22 18:00 | NUR ---
RN NOTES NO SIGNIFICANT CHANGES NOTED THROUGHOUT THE SHIFT. PT STILL SEDATED WITH DIPRIVAN TITRATED PROTOCOL ORDER. 1/NS INFUSING @ 125 ML/HR. VSS STABLE, KEPT PT CLEAN AND DRY. WILL ENDORSE TO SALES MANAGEMENT INTERN NURSE FOR CONTINUITY OF CARE .
[2019-04-23] VITALS (23 sets, daily range): BP systolic 90–132; BP diastolic 52–76
[2019-04-23] MEDS: PROPOFOL 100 ML IV PRN ×2 (01:44→17:13)
--- NOTE | 2019-04-23 07:15 | NUR ---
PORT SURVEYOR NOTES RECEIVED BEDSIDE REPORT PT A/O X0 INTUBATED ETT 11/26@ LIP TOLERATING VENT SETTINGS ORDERED NO SS OF PAIN NOTED. SINUS ON THE MONITOR XAVIER MIDLINE WITH PROPOFOL @ 45MCG/HR PT SEDATED. IVF 1/2 NS RUNNING @ 125 ML/HR GTF JEVITY 1.2 @ 60ML RFA # 20 SALINE LOCKED HR TOLERATING NO N/V NO RESIDUAL SAFETY AND ASPIRATION PRECAUTIONS IN PLACE BED IN LOW LOCKED POSITION
[2019-04-23 07:54] LABS: BASOPHILS % (AUTO) 0.4 % (0.0-2.0); EOSINOPHILS % (AUTO) 1.9 % (0.0-6.0); HEMATOCRIT 24 % (33-45); LYMPHOCYTES # (AUTO) 0.8 /CMM (0.8-4.8); LYMPHOCYTES % (AUTO) 11.7 % (20.0-44.0); MEAN CORPUSCULAR HGB CONC 33 g/dl (31.0-36.0); MEAN CORPUSCULAR VOLUME 87 fL (82-100); MONOCYTES # (AUTO) 0.4 /CMM (0.1-1.30); MONOCYTES % (AUTO) 5.3 % (2.0-12.0); NEUTROPHILS # (AUTO) 5.6 /CMM (1.8-8.9); NEUTROPHILS % (AUTO) 80.7 % (43.0-81.0); PLATELET COUNT (AUTO) 329 /CMM (150-450); RED BLOOD CELL COUNT(AUTO) 2.79 MIL/uL (4.0-5.2)
--- NOTE | 2019-04-23 08:00 | NUR ---
PT ON SEDATION VACATION
[2019-04-23] MEDS: MULTIVIT W/MINERALS 1 TAB TABLET GT SCH (08:33)
[2019-04-23] MEDS: ZINC SULFATE 220 MG CAPSULE GT SCH (08:33)
[2019-04-23] MEDS: DOCUSATE SODIUM 100 MG CAPSULE PO SCH (08:33)
[2019-04-23] MEDS: ASCORBIC ACID 500 MG TABLET GT SCH (08:33)
[2019-04-23] MEDS: FERROUS SULFATE UDC 300 MG/5 ML UDC GT SCH ×2 (08:33→17:12)
[2019-04-23] MEDS: JEVITY 1.2 CAL 1,000 ML BOTTLE GT PRN (08:40)
[2019-04-23] MEDS: PROSOURCE / PROSTAT (PYXIS) 30 ML UDC GT SCH ×2 (08:42→17:13)
[2019-04-23] MEDS: IV 1/2NS 1000 ML 1,000 ML IV PRN ×2 (09:00→17:34)
[2019-04-23] MEDS: MEROPENEM 500 MG in IV NS 0.9% 50 ML IV SCH ×2 (09:00→20:42)
[2019-04-23] MEDS: PANTOPRAZOLE 40 MG VIAL IV SCH (09:01)
[2019-04-23 09:57] LABS: ABG BASE EXCESS -1.1 mmol/L; ABG OXYGEN SATURATION 96.8 % (92.0-98.5); ABG PCO2 28.2 mmHg (35.0-45.0); ABG PO2 90.8 mmHg (75.0-100.0); COHb 0.1 % (0.5-1.5); MetHb 0.4 % (0.0-1.5); O2Hb 96.3 % (94.0-97.0); SITE, ABG Right Radial
[2019-04-23] MEDS: POTASSIUM CL. PREMIX PERIPHER. 50 ML IV SCH ×4 (10:07→13:00)
[2019-04-23 12:03] LABS: *SPE A/G RATIO 0.8 (0.7-1.7); *SPE ALPHA-1-GLOBULIN 0.3 g/dL (0.0-0.4); *SPE ALPHA-2-GLOBULIN 0.6 g/dL (0.4-1.0); *SPE BETA GLOBULIN 0.8 g/dL (0.7-1.3); *SPE GLOBULIN, TOTAL 2.4 g/dL (2.2-3.9); *SPE M-SPIKE Not Observed g/dL (Not Observed); *SPEGAMMA GLOBULIN 0.7 g/dL (0.4-1.8)
[2019-04-23 13:15] LABS: CALCIUM, SERUM 7.4 mg/dL (8.5-10.1); CREATININE 0.6 mg/dL (0.6-1.3); MAGNESIUM 1.8 mg/dL (1.8-2.4); PHOSPHORUS 2.3 mg/dL (2.5-4.9); POTASSIUM 3.9 mmol/L (3.5-5.1)
[2019-04-23 14:06] LABS: PTH, INTACT 46 pg/mL (15-65)
--- NOTE | 2019-04-23 14:30 | NUR ---
BEDBATH GIVEN ORAL CARE DONE PT REPOSITIONED FOR COMFORT
[2019-04-23] MEDS ORDERED: NEUTRA PHOS 1 POWD.PACKET GT ONE (15:30)
--- NOTE | 2019-04-23 18:38 | NUR ---
OUTREACH PROFESSIONAL NOTES PT REMAINED AFEBRILE THROUGHOUT SHIFT TOLERATING VENT SETTINGS ORDERED. NO S/S OF DISTRESS OR PAIN NOTED. CONT ON IVF / NS @ 40ML/HR AND DIPRIVAN @ 45 MCG /ML RUNNING IN AVIS MIDLINE. REPOSITIONED FOR COMFORT SAFETY AND ASPIRATION PRECAUTIONS IN PLACE BED IN LOW LOCKED POSITION WILL ENDORSE TO NOC
--- NOTE | 2019-04-23 19:30 | NUR ---
BUSINESS INTELLIGENCE ETL DEVELOPER NOTE PATIENT IN BED SEDATED ON DIPRIVAN AT45 MCG. PATIENT OPENS EYES TO PAINFUL STIMULI. PATIENT ET TUBE IN PLACE AT 11/26. BREATHING EVEN AND UNLABORED. NO S.S OF RESP DISTRESS.PATIENT TOLERATING GTUBE FEEDING OK WITH 40 ML RESIDUAL NOTED. PATIENT XAVIER MIDLINE PATENT AND INTACT NO S/S OF INFECTION OR INFILTRATION. PATIENT TURNED AND REPOSITIONED ORAL CARE GIVEN . SAFETY PRECAUTIONS IN PLACE. RN WILL CONTINUE TO MONITIOR
--- NOTE | 2019-04-23 20:11 | NUR ---
RECEIVED PT INTUBATED 7.0 ETT SECURED AT 23CM AT THE LIP. NO DISTRESS. PT TOLERATING CPAP MODE. SX'D FOR SML AMT OF THICK WHITE SECRETIONS. CONTINUE [facility] VENT SUPPORT. Addendum: 04/23/19 at 2012 by TRE LARSON RT Amended: Links added.
[2019-04-23] MEDS: FLUCONAZOLE (100 MG) 100 MG TABLET PO SCH (20:42)
[2019-04-24] VITALS (30 sets, daily range): BP systolic 96–144; BP diastolic 59–86
[2019-04-24] MEDS: JEVITY 1.2 CAL 1,000 ML BOTTLE GT PRN (01:38)
[2019-04-24] MEDS: PROPOFOL 100 ML IV PRN ×2 (01:57→05:20)
[2019-04-24 04:23] LABS: BASOPHILS # (AUTO) 0.3 /CMM (0.0-0.2); BASOPHILS % (AUTO) 3.7 % (0.0-2.0); EOSINOPHILS % (AUTO) 1.8 % (0.0-6.0); HEMATOCRIT 25 % (33-45); HEMOGLOBIN 8.3 g/dL (11.5-14.8); LYMPHOCYTES # (AUTO) 0.8 /CMM (0.8-4.8); LYMPHOCYTES % (AUTO) 9.9 % (20.0-44.0); MEAN CORPUSCULAR HGB CONC 33 g/dl (31.0-36.0); MEAN CORPUSCULAR VOLUME 87 fL (82-100); MONOCYTES # (AUTO) 0.4 /CMM (0.1-1.30); MONOCYTES % (AUTO) 5.2 % (2.0-12.0); NEUTROPHILS # (AUTO) 6.2 /CMM (1.8-8.9); NEUTROPHILS % (AUTO) 79.4 % (43.0-81.0); PLATELET COUNT (AUTO) 382 /CMM (150-450); RED BLOOD CELL COUNT(AUTO) 2.91 MIL/uL (4.0-5.2); WHITE BLOOD COUNT (AUTO) 7.8 K/uL (4.3-11.0)
[2019-04-24 04:40] LABS: CALCIUM, SERUM 7.9 mg/dL (8.5-10.1); CARBON DIOXIDE 28 mmol/L (21-32); CHLORIDE 108 mmol/L (98-107); CREATININE 0.5 mg/dL (0.6-1.3); GLUCOSE 122 mg/dL (74-106); MAGNESIUM 1.8 mg/dL (1.8-2.4); PHOSPHORUS 2.9 mg/dL (2.5-4.9); POTASSIUM 3.9 mmol/L (3.5-5.1); SODIUM SERUM 140 mmol/L (136-145); UREA NITROGEN, BLOOD 25 mg/dL (7-18)
[2019-04-24 08:49] LABS: ABG BASE EXCESS 0.5 mmol/L; ABG OXYGEN SATURATION 97.5 % (92.0-98.5); ABG PCO2 31.6 mmHg (35.0-45.0); AaDO2 67.8 mmHg; COHb 0.3 % (0.5-1.5); MetHb 0.5 % (0.0-1.5); O2Hb 96.7 % (94.0-97.0); SITE, ABG Right Radial; VENT MODE, BG CPAP 5 / PS 15
[2019-04-24] MEDS: FERROUS SULFATE UDC 300 MG/5 ML UDC GT SCH ×2 (09:07→17:33)
[2019-04-24] MEDS: DOCUSATE SODIUM LIQ 100 MG/10 ML UDC GT SCH (09:07)
[2019-04-24] MEDS: PROSOURCE / PROSTAT (PYXIS) 30 ML UDC GT SCH ×2 (09:08→17:33)
[2019-04-24] MEDS: ZINC SULFATE 220 MG CAPSULE GT SCH (09:08)
[2019-04-24] MEDS: PANTOPRAZOLE 40 MG VIAL IV SCH (09:08)
[2019-04-24] MEDS: ASCORBIC ACID 500 MG TABLET GT SCH (09:08)
[2019-04-24] MEDS: FLUCONAZOLE (100 MG) 100 MG TABLET PO SCH (09:08)
[2019-04-24] MEDS: MULTIVIT W/MINERALS 1 TAB TABLET GT SCH (09:08)
[2019-04-24] MEDS: MEROPENEM 500 MG in IV NS 0.9% 50 ML IV SCH ×2 (09:46→21:39)
[2019-04-24] MEDS ORDERED: NEUTRA PHOS 1 POWD.PACKET NG ONE (13:00)
--- NOTE | 2019-04-24 16:59 | NUR ---
RN NOTE 0715: Received patient with ETT. No respiratory distress noted at this time. With GT intact, feeding tolerated well, 10mL residuals, kept HOB elevated. With XAVIER midline intact. Schneider cath intact, noted with clear yellow urine drained to BSD. SR on the monitor. With right lower extremity immobilizer, cast. 0735: Received patient on Diprivan 40. Endorsed on vent. Removed Diprivan, patient on CPAP. 0830: S/E by Dr. Cisse, awaiting for ABG. 0930: Dr. Cisse aware for the ABG, with order to starrt on cool aerosol tomorrow and ABG 1hr after. 1300: S/E by Toño WARE, no new order at this time. 1655: No new order at this time. Kept clean, warm and dry. Needs attended. Still tolerating CPAP.
[2019-04-24] MEDS: IV 1/2NS 1000 ML 1,000 ML IV PRN (18:24)
[2019-04-24] MEDS: VORICONAZOLE 200 MG TABLET PO SCH (21:39)
[2019-04-25] VITALS (36 sets, daily range): BP systolic 95–155; BP diastolic 14–84
--- NOTE | 2019-04-25 02:10 | NUR ---
RECEIVED PT INTUBATED 7.0 ETT @23CM LIP. Vent setting as noted. Pt tolerating setting cpap well. No sob or distress noted. Will continue to monitor. Addendum: 04/25/19 at 0212 by KEVIN COWAN RT Amended: Links added.
[2019-04-25 04:41] LABS: CALCIUM, SERUM 8.1 mg/dL (8.5-10.1); CARBON DIOXIDE 29 mmol/L (21-32); CHLORIDE 105 mmol/L (98-107); CREATININE 0.5 mg/dL (0.6-1.3); GLUCOSE 122 mg/dL (74-106); POTASSIUM 3.9 mmol/L (3.5-5.1); SODIUM SERUM 139 mmol/L (136-145); UREA NITROGEN, BLOOD 26 mg/dL (7-18)
--- NOTE | 2019-04-25 07:05 | NUR ---
RN NOTE RECEIVED PT ON BED, INTUBATED, ON CPAP MODE, TOLERATING THE VENT SETTING WELL, O2 SAT WNL, PATIENT OPENS EYES TO PAINFUL STIMULI. PATIENT ET TUBE IN PLACE AT 11/26. BREATHING EVEN AND UNLABORED. NO S.S OF RESP DISTRESS.PATIENT TOLERATING GTUBE FEEDING WELL , NO RESIDUAL NOTED , PATIENT XAVIER MIDLINE PATENT AND INTACT NO S/S OF INFECTION OR INFILTRATION NOTED, SR UP x3, CALL LIGHT WITHIN EASY REACH, BED LOCKED AND IN LOWEST POSITION, SAFETY PRECAUTIONS IN PLACE. CONTINUE TO MONITOR.
--- NOTE | 2019-04-25 07:33 | NUR ---
PATIENT REMAINS IN NO ACUTE DISTRESS IN BED. PATIENT DID NOT HAVE ANY SIGNIFICANT CHANGE IN CONDITION DURING SHIFT. ALL NEEDS MET, ALL ORDERS CARRIED OUT. PATIENT TOLERATED VENT SETTING WELL. WILL ENDORSE CARE TO AM RN FOR CONTINUITY OF CARE.
[2019-04-25] MEDS: ZINC SULFATE 220 MG CAPSULE GT SCH (08:10)
[2019-04-25] MEDS: MULTIVIT W/MINERALS 1 TAB TABLET GT SCH (08:10)
[2019-04-25] MEDS: FERROUS SULFATE UDC 300 MG/5 ML UDC GT SCH ×2 (08:10→17:00)
[2019-04-25] MEDS: PROSOURCE / PROSTAT (PYXIS) 30 ML UDC GT SCH ×2 (08:10→17:03)
[2019-04-25] MEDS: ASCORBIC ACID 500 MG TABLET GT SCH (08:10)
[2019-04-25] MEDS: DOCUSATE SODIUM LIQ 100 MG/10 ML UDC GT SCH (08:10)
[2019-04-25] MEDS: MEROPENEM 500 MG in IV NS 0.9% 50 ML IV SCH ×2 (08:11→21:44)
[2019-04-25] MEDS: VORICONAZOLE 200 MG TABLET PO SCH ×2 (08:11→21:44)
[2019-04-25] MEDS: PANTOPRAZOLE 40 MG VIAL IV SCH (09:45)
[2019-04-25] MEDS: JEVITY 1.2 CAL 1,000 ML BOTTLE GT PRN (15:26)
[2019-04-25] MEDS: IV 1/2NS 1000 ML 1,000 ML IV PRN (15:34)
--- NOTE | 2019-04-25 15:43 | NUR ---
RT PATIENT PLACED BACK ON AC MODE FOR MULTIPLE APNEIC OCCURRENCES. DR MUNGUIA AWARE. Addendum: 04/25/19 at 1544 by NEHAL RAYA RT Amended: Links added.
--- NOTE | 2019-04-25 18:00 | NUR ---
RN NOTES PT REMANS INTUBATED, AYAN TF AT 60CC/HR WELL, 1/2 NS AT40CC/HR RUNNING , SR UP x3, BED LOCKED AND IN LOWEST POSITION, WILL ENDOSE TO PSYCHOLOGIST CLINICAL NURSE FOR CONTINUITY OF CARE
--- NOTE | 2019-04-25 20:00 | NUR ---
RN NOTE RECEIVED PT REPORT FROM AM RN. PATIENT IS IN ON BED, INTUBATED,VENT ON CPAP MODE, TOLERATING THE VENT SETTING WELL, O2 SAT WNL, PATIENT OPENS EYES TO PAINFUL STIMULI. PATIENT ET TUBE IN PLACE AT 11/26. BREATHING EVEN AND UNLABORED. NO S.S OF RESP DISTRESS OR PAIN AT THIS TIME.PATIENT TOLERATING G TUBE FEEDING WELL , NO RESIDUAL NOTED , PATIENT XAVIER MIDLINE PATENT AND INTACT NO S/S OF INFECTION OR INFILTRATION NOTED, SR UP x3, CALL LIGHT WITHIN EASY REACH, BED LOCKED AND IN LOWEST POSITION, SAFETY PRECAUTIONS IN PLACE. CONTINUE TO MONITOR.
[2019-04-26] VITALS (24 sets, daily range): BP systolic 52–147; BP diastolic 18–81
[2019-04-26 04:31] LABS: BASOPHILS # (AUTO) 0.1 /CMM (0.0-0.2); BASOPHILS % (AUTO) 1.1 % (0.0-2.0); EOSINOPHILS % (AUTO) 1.7 % (0.0-6.0); HEMATOCRIT 25 % (33-45); HEMOGLOBIN 7.9 g/dL (11.5-14.8); LYMPHOCYTES # (AUTO) 0.7 /CMM (0.8-4.8); MEAN CORPUSCULAR HGB CONC 32 g/dl (31.0-36.0); MEAN CORPUSCULAR VOLUME 87 fL (82-100); MONOCYTES # (AUTO) 0.4 /CMM (0.1-1.30); MONOCYTES % (AUTO) 5.3 % (2.0-12.0); NEUTROPHILS # (AUTO) 5.4 /CMM (1.8-8.9); NEUTROPHILS % (AUTO) 80.9 % (43.0-81.0); PLATELET COUNT (AUTO) 434 /CMM (150-450); RED BLOOD CELL COUNT(AUTO) 2.84 MIL/uL (4.0-5.2); WHITE BLOOD COUNT (AUTO) 6.6 K/uL (4.3-11.0)
[2019-04-26 04:42] LABS: CALCIUM, SERUM 8.1 mg/dL (8.5-10.1); CREATININE 0.6 mg/dL (0.6-1.3); MAGNESIUM 1.9 mg/dL (1.8-2.4); PHOSPHORUS 2.6 mg/dL (2.5-4.9); POTASSIUM 3.9 mmol/L (3.5-5.1)
--- NOTE | 2019-04-26 06:14 | NUR ---
RN NOTE RECEIVED PT REPORT FROM AM RN. PATIENT IS IN ON BED, INTUBATED,VENT ON CPAP MODE, TOLERATING THE VENT SETTING WELL, O2 SAT WNL, PATIENT OPENS EYES TO PAINFUL STIMULI. PATIENT ET TUBE IN PLACE AT 11/26. BREATHING EVEN AND UNLABORED. NO S.S OF RESP DISTRESS OR PAIN AT THIS TIME.PATIENT TOLERATING G TUBE FEEDING WELL , NO RESIDUAL NOTED , PATIENT XAVIER MIDLINE PATENT AND INTACT NO S/S OF INFECTION OR INFILTRATION NOTED, SR UP x3, CALL LIGHT WITHIN EASY REACH, BED LOCKED AND IN LOWEST POSITION, SAFETY PRECAUTIONS IN PLACE. CONTINUE TO MONITOR. Addendum: 04/26/19 at 617 by CHELSY CARLIN RN WRONG TIME DOCUMENTATION Addendum: 04/26/19 at 617 by CHELSY CARLIN RN PLEASE DISREGARD TIS NOTE. WRONG TIME DOCUMENTATION.
--- NOTE | 2019-04-26 07:30 | NUR ---
LIBRARY TECHNOLOGY INSTRUCTOR NOTES RECEIVED PATIENT A/O X0. INTUBATED ETT 7 WITH 22@ LIP. TOLERATING VENT SETTINGS ORDERED. SATING FINE. NO S/S OF PAIN NOTED AT THIS TIME. SINUS RHYTHM ON THE MONITOR WITH HR ON THE 80'S. XAVIER MIDLINE WITH ONGOING IVF 1/2 NS RUNNING @ 40ML/HR. RFA # G20: SALINE LOCKED. GT IN PLACE, MINIMAL RESIDUAL TAKEN UPON CHECKING. GTF JEVITY 1.2 RUNNING AT 60ML, PATIENT TOLERATING WELL. INTERIANO CATHETER IN PLACE, DRAINING VIA GRAVITY TO CLEAR YELLOW URINE. SAFETY AND ASPIRATION PRECAUTIONS IN PLACE. BED IN LOW LOCKED POSITION. WILL CONTINUE TO MONITOR PATIENT ACCORDINGLY
[2019-04-26] MEDS: PANTOPRAZOLE 40 MG VIAL IV SCH (08:46)
[2019-04-26] MEDS: ZINC SULFATE 220 MG CAPSULE GT SCH (08:46)
[2019-04-26] MEDS: ASCORBIC ACID 500 MG TABLET GT SCH (08:46)
[2019-04-26] MEDS: VORICONAZOLE 200 MG TABLET PO SCH ×2 (08:46→20:21)
[2019-04-26] MEDS: DOCUSATE SODIUM LIQ 100 MG/10 ML UDC GT SCH (08:47)
[2019-04-26] MEDS: PROSOURCE / PROSTAT (PYXIS) 30 ML UDC GT SCH ×2 (08:47→17:59)
[2019-04-26] MEDS: MEROPENEM 500 MG in IV NS 0.9% 50 ML IV SCH ×2 (08:47→20:21)
[2019-04-26] MEDS: FERROUS SULFATE UDC 300 MG/5 ML UDC GT SCH ×2 (08:47→17:59)
[2019-04-26] MEDS: MULTIVIT W/MINERALS 1 TAB TABLET GT SCH (08:47)
[2019-04-26] MEDS: JEVITY 1.2 CAL 1,000 ML BOTTLE GT PRN (12:45)
--- NOTE | 2019-04-26 13:03 | NUR ---
WOUND CARE CONSULT: PT PRESENTS WITH SACRAL SCARRING AND RT LOWER EXTREMITY SPLINT/ORTHO WRAP WHICH IS DRY AND INTACT. RECOMMEND ORTHO FOLLOW UP. RECOMMENDATIONS MADE FOR SKIN PROTECTION. DISCUSSED WITH NURSING STAFF. PT IS INCONTINENT OF STOOL. FIRST STEP LOW AIRLOSS MATTRESS ORDERED. CURRENT TAMY SCORE IS 10. WILL SEE PRN. WALTERS IN AGREEMENT WITH PLAN OF CARE. Addendum: 04/26/19 at 1305 by BELLA ADAMES WNDNU Amended: Links added.
[2019-04-26] MEDS: IV 1/2NS 1000 ML 1,000 ML IV PRN (18:08)
--- NOTE | 2019-04-26 19:00 | NUR ---
SR. CONSULTANT NOTES RECEIVED PATIENT EYE OPENING. INTUBATED ETT 7 WITH 22@ LIP. TOLERATING VENT SETTINGS ORDERED. SATING FINE. NO S/S OF PAIN NOTED AT THIS TIME. SINUS RHYTHM-97 ON THE MONITOR SATING 100%, XAVIER MIDLINE WITH ONGOING IVF 1/2 NS RUNNING @ 40ML/HR.INFUSING WELL. RFA # G20: SALINE LOCKED. GT IN PLACE. GTF JEVITY 1.2 RUNNING AT 60ML, NO RESIDUAL NOTED. PATIENT TOLERATING WELL. INTERIANO CATHETER IN PLACE, DRAINING TO CLEAR YELLOW URINE. SAFETY AND ASPIRATION PRECAUTIONS IN PLACE. BED IN LOW LOCKED POSITION. WILL CONTINUE TO MONITOR PATIENT ACCORDINGLY .TURNED AND REPOSITION Q 2 HRS AND PRN SUCTION SECRETION DONE AND PRN.V/S STABLE AFEBRILE
--- NOTE | 2019-04-26 19:10 | NUR ---
NETWORKING ADMINISTRATOR NOTES pts noted with swollen on upper lips from the contact from et tube james. will continue to monitor pts
--- NOTE | 2019-04-26 19:12 | NUR ---
RN NOTES ENDORSED FOR CONTINUITY OF CARE. NOT ON ANY FORM OF DISTRESS. NO SIGNIFICANT CHANGES WITHIN THE SHIFT. ALL NURSING NEEDS ATTENDED AND NIYAH. SAFETY MEASURES IN PLACE AT ALL TIMES. CALL LIGHT WITHIN REACH
--- NOTE | 2019-04-26 21:12 | NUR ---
found pts upper lip is swollen from the contact from et tube james, notified RN Addendum: 04/26/19 at 2113 by CARLOS JONES RT Amended: Links added.
[2019-04-27] VITALS (29 sets, daily range): BP systolic 114–139; BP diastolic 61–90
--- NOTE | 2019-04-27 04:00 | NUR ---
ROLLER PICKER NOTES MORNING BED BATH RENDERED , PT REMANS AC SETTING WELL TOLERATED NO SOB NO DISTRESS NOTED ,PTS WAS TURNED AND REPOSITION FEEDING ON PROGRESS NO RESIDUAL NOTED FEEDING TOLERATING WELL , F/C INTACT AND PATENT DRAINING WITH YELLOWISH URINE OUTPUT. V/S STABLE AFEBRILE.KEPT PT CLEAN DRY AND COMFORTABLE.
[2019-04-27 04:56] LABS: BASOPHILS # (AUTO) 0.2 /CMM (0.0-0.2); BASOPHILS % (AUTO) 3.8 % (0.0-2.0); EOSINOPHILS % (AUTO) 1.3 % (0.0-6.0); HEMATOCRIT 25 % (33-45); HEMOGLOBIN 8.3 g/dL (11.5-14.8); LYMPHOCYTES # (AUTO) 0.8 /CMM (0.8-4.8); LYMPHOCYTES % (AUTO) 11.9 % (20.0-44.0); MEAN CORPUSCULAR HGB CONC 33 g/dl (31.0-36.0); MEAN CORPUSCULAR VOLUME 85 fL (82-100); MONOCYTES # (AUTO) 0.4 /CMM (0.1-1.30); MONOCYTES % (AUTO) 5.8 % (2.0-12.0); NEUTROPHILS # (AUTO) 5.1 /CMM (1.8-8.9); NEUTROPHILS % (AUTO) 77.2 % (43.0-81.0); PLATELET COUNT (AUTO) 478 /CMM (150-450); RED BLOOD CELL COUNT(AUTO) 2.98 MIL/uL (4.0-5.2); WHITE BLOOD COUNT (AUTO) 6.6 K/uL (4.3-11.0)
[2019-04-27 05:01] LABS: CALCIUM, SERUM 8.2 mg/dL (8.5-10.1); CARBON DIOXIDE 30 mmol/L (21-32); CHLORIDE 105 mmol/L (98-107); CREATININE 0.5 mg/dL (0.6-1.3); GLUCOSE 133 mg/dL (74-106); MAGNESIUM 1.9 mg/dL (1.8-2.4); PHOSPHORUS 2.8 mg/dL (2.5-4.9); POTASSIUM 4.2 mmol/L (3.5-5.1); SODIUM SERUM 140 mmol/L (136-145); UREA NITROGEN, BLOOD 25 mg/dL (7-18)
[2019-04-27] MEDS: JEVITY 1.2 CAL 1,000 ML BOTTLE GT PRN ×2 (05:37→22:12)
--- NOTE | 2019-04-27 06:57 | NUR ---
FARMWORKER NOTES WILL ENDORSE TO RN DAY SHIFT FOR CONTINUITY OF CARE.
--- NOTE | 2019-04-27 07:30 | NUR ---
ICU/RN: Pt received, no distress, breathing even and unlabored. Opens eyes, responds to painful stimuli. GTF tolerated, no residuals noted. IVF infusing as ordered. FC draining to gravity. Will cont to monitor pt.
[2019-04-27] MEDS: DOCUSATE SODIUM LIQ 100 MG/10 ML UDC GT SCH (08:12)
[2019-04-27] MEDS: ASCORBIC ACID 500 MG TABLET GT SCH (08:12)
[2019-04-27] MEDS: ZINC SULFATE 220 MG CAPSULE GT SCH (08:12)
[2019-04-27] MEDS: FERROUS SULFATE UDC 300 MG/5 ML UDC GT SCH ×2 (08:12→16:39)
[2019-04-27] MEDS: MULTIVIT W/MINERALS 1 TAB TABLET GT SCH (08:12)
[2019-04-27] MEDS: PROSOURCE / PROSTAT (PYXIS) 30 ML UDC GT SCH ×2 (08:12→16:39)
[2019-04-27] MEDS: VORICONAZOLE 200 MG TABLET PO SCH (08:13)
[2019-04-27] MEDS: Z GUARD REMEDY 2 OZ OINT TP PRN (08:13)
[2019-04-27] MEDS: PANTOPRAZOLE 40 MG VIAL IV SCH (09:20)
--- NOTE | 2019-04-27 10:00 | NUR ---
ICU/RN: Oral care rendered, pt required frequent oral suctioning with moderate amount of thick clear secretions. Aspiration precautions maintained.
--- NOTE | 2019-04-27 14:00 | NUR ---
ICU/RN: Bed bath, wound care rendered. Tolerated well.
[2019-04-27] MEDS: IV 1/2NS 1000 ML 1,000 ML IV PRN (16:40)
--- NOTE | 2019-04-27 18:00 | NUR ---
ICU/RN: Turned and repositioned for comfort. Airway cleared of secretions.
--- NOTE | 2019-04-27 19:00 | NUR ---
RECEIVED PATIENT ORALLY INTUBATED ON THE VENT ON AC MODE, NOT IN ANY DISTRESS.STUPOROUS, OPENS EYES,+ COUGH AND GAG/GRIMACES TO PAIN,SLIGHTLY MOVES BOTH ARMS,WITHDRAWS LOWER EXTREMITIES .RIGHT LEG WITH CAST(HALF CAST )FROM LOWER LEG TO GROIN, RIGHT FOOT WARM TO TOUCH,GOOD SKIN COLOR.COMFORT CARE DONE.PATIENT DNR/DNI FOR POSSIBLE TERMINAL EXTUBATION ON MONDAY.
--- NOTE | 2019-04-27 22:00 | NUR ---
STABLE,NO CHANGE IN STATUS.
[2019-04-28] VITALS (31 sets, daily range): BP systolic 101–147; BP diastolic 61–82
--- NOTE | 2019-04-28 | NUR ---
NO CHANGE IN STATUS,NOT IN ANY DISTRESS BUT COUGHING AND BUCKING THE VENTILATOR MORE FREQUENTLY,GRIMACING AND RESTLESS. 0030 prn pain med. given.PATIENT STILL OCCASIONALLY GRIMACES AND RESTLESS.
[2019-04-28] MEDS: HYDROCODONE/APAP 5/325MG 1 EACH TABLET PO PRN ×2 (00:30→22:34)
--- NOTE | 2019-04-28 04:00 | NUR ---
STATUS UNCHANGED,STABLE,NOT IN ANY DISTRESS ,RESPONDS TO PAIN,MOVES EXTREMITIES BUT WEAK.COMFORT CARE /AM BATH DONE.
[2019-04-28 05:01] LABS: CALCIUM, SERUM 8.4 mg/dL (8.5-10.1); CARBON DIOXIDE 31 mmol/L (21-32); CHLORIDE 105 mmol/L (98-107); CREATININE 0.5 mg/dL (0.6-1.3); GLUCOSE 123 mg/dL (74-106); POTASSIUM 4.3 mmol/L (3.5-5.1); SODIUM SERUM 139 mmol/L (136-145); UREA NITROGEN, BLOOD 22 mg/dL (7-18)
--- NOTE | 2019-04-28 07:44 | NUR ---
CAROUSEL OPERATOR NOTES RECEIVED BEDSIDE REPORT PT A/O X0 INTUBATED ETT 11/26@ LIP TOLERATING VENT SETTINGS ORDERED NO SS OF PAIN NOTED. SINUS ON THE MONITOR XAVIER MIDLINE . IVF 1/2 NS RUNNING @ 40 ML/HR RFA # 20 SL GTF JEVITY 1.2 @ 60ML/HR TOLERATING NO N/V NO RESIDUAL SAFETY AND ASPIRATION PRECAUTIONS IN PLACE BED IN LOW LOCKED POSITION
[2019-04-28] MEDS: DOCUSATE SODIUM LIQ 100 MG/10 ML UDC GT SCH (08:21)
[2019-04-28] MEDS: FERROUS SULFATE UDC 300 MG/5 ML UDC GT SCH ×2 (08:21→16:43)
[2019-04-28] MEDS: ZINC SULFATE 220 MG CAPSULE GT SCH (08:23)
[2019-04-28] MEDS: MULTIVIT W/MINERALS 1 TAB TABLET GT SCH (08:23)
[2019-04-28] MEDS: ASCORBIC ACID 500 MG TABLET GT SCH (08:23)
[2019-04-28] MEDS: PROSOURCE / PROSTAT (PYXIS) 30 ML UDC GT SCH ×2 (08:24→16:43)
[2019-04-28] MEDS: PANTOPRAZOLE 40 MG VIAL IV SCH (09:38)
[2019-04-28] MEDS: JEVITY 1.2 CAL 1,000 ML BOTTLE GT PRN (12:47)
--- NOTE | 2019-04-28 14:40 | NUR ---
BED BATH GIVEN ORAL CARE GIVEN REPOSITIONED FOR COMFORT
[2019-04-28] MEDS: IV 1/2NS 1000 ML 1,000 ML IV PRN (17:14)
--- NOTE | 2019-04-28 18:31 | NUR ---
CUSTODIAL LABORER NOTES NO SIGNIFICANT CHANGES THROUGHOUT THE SHIFT. PT REMAINS AFEBRILE. NO S/S OF RESPIRATORY DISTRESS TOLERATING VENT SETTINGS ORDERED NO ACUTE PAIN NOTED. SINUS ON MONITOR GTF JEVITY RUNNING @ 60 ML/HR NO N/V NOTED.IVF 1/2 NS @ 40 ML/HR VIA XAVIER MIDLINE. INTERIANO CATH DRAINING CLEAR YELLOW URINE SKIN INTACT REPOSITIONED Q2HR RIGHT LEG IN FIBERGLASS SPLINT SKIN CHECKED FOR ANY CHANGES . SAFETY AND ASPIRATION PRECAUTIONS IN PLACE BED IN LOW LOCKED POSITION WILL ENDORSE TO NOC
--- NOTE | 2019-04-28 19:03 | NUR ---
REPORT ENDORSED TO NOC
--- NOTE | 2019-04-28 19:30 | NUR ---
RN NOTES PATIENT IS ORALLY INTUBATED WITH ETT 7.0 AND 23 CM WITH VENT SETTING OF AC 12 TV 500 FIO2 30% PEEP 5 TOLERATED WELL. NSR ON TELE MONITOR. NO SOB OR ACUTE RESPIRATORY DISTRESS. IV SITE ON AVIS MIDLINE WITH 1/2 NS @ 40 ML/HR NO FACIAL COMPLAIN OF PAIN. PATIENT EYES OPEN BUT NOT TRACKING . INTERIANO CATH DRAINED VIA GRAVITY. KEPT PT CLEAN AND DRY. TURNED AND REPOSITIONED Q2H AND PRN. WILL CONTINUE TO MONITOR.
[2019-04-29] VITALS (34 sets, daily range): BP systolic 101–140; BP diastolic 42–95
[2019-04-29] MEDS: JEVITY 1.2 CAL 1,000 ML BOTTLE GT PRN (05:40)
--- NOTE | 2019-04-29 07:14 | NUR ---
RN NOTES PATIENT REMAINED THE SAME THROUGHOUT THE SHIFT. ORALLY INTUBATED, VENT SETTING TOLERATED WELL. NSR ON TELE MONITOR. CALM AND COOPERATIVE, EYES OPEN, FLACC=0. AFEBRILE. VSS. NO PRESSORS NO SEDATION. INCONTINENT CARE RENDERED. INTERIANO CATH DRAINED WITH GOOD URINE OUTPUT. NO SIGNIFICANT CHANGES KEPT PT CLEAN AND DRY. TURNED AND REPOSITIONED Q2H AND PRN. ENDORSED CONTINUITY OF CARE TO AM NURSE.
--- NOTE | 2019-04-29 07:30 | NUR ---
HOT HEAD MACHINE OPERATOR INITIAL NOTE RECEIVED PATIENT OBTUNDED, DOES NOT FOLLOW COMMANDS. NO S/S OF PAIN OR DISCOMFORT. ETT IN PLACE. TOLERATING CURRENT VENT SETTINGS. NO RESPIRATORY DISTRESS NOTED. ON TELE MONITOR SR. PEG PATENT, INTACT, IN PLACE, TOLERATING GTF. F/C PATENT AND DRAINING BY GRAVITY. HOB ELEVATED. TURNED AND REPOSITIONED. WILL CONTINUE TO MONITOR.
[2019-04-29] MEDS: DOCUSATE SODIUM LIQ 100 MG/10 ML UDC GT SCH (09:00)
[2019-04-29] MEDS: ASCORBIC ACID 500 MG TABLET GT SCH (09:00)
[2019-04-29] MEDS: ZINC SULFATE 220 MG CAPSULE GT SCH (09:00)
[2019-04-29] MEDS: FERROUS SULFATE UDC 300 MG/5 ML UDC GT SCH ×2 (09:00→17:55)
[2019-04-29] MEDS: MULTIVIT W/MINERALS 1 TAB TABLET GT SCH (09:00)
[2019-04-29] MEDS: PANTOPRAZOLE 40 MG VIAL IV SCH (09:00)
[2019-04-29] MEDS: PROSOURCE / PROSTAT (PYXIS) 30 ML UDC GT SCH ×2 (09:03→17:55)
[2019-04-29] MEDS ORDERED: DC PROPOFOL WHEN EXTUBATED XX PRN (10:00)
--- NOTE | 2019-04-29 15:05 | NUR ---
RT PER MD ORDER PATIENT WAS EXTUBATED AND PLACED ON SUPPLEMENTAL O2.
--- NOTE | 2019-04-29 15:06 | NUR ---
S/P EXTUBATION. WILL MONITOR CLOSELY
[2019-04-29] MEDS: MORPHINE SULFATE INJ 2 MG/ML DISP.SYRIN IV PRN ×2 (15:35→21:48)
[2019-04-29] MEDS: IV 1/2NS 1000 ML 1,000 ML IV PRN (17:55)
--- NOTE | 2019-04-29 18:30 | NUR ---
MEDIA ARTS PROFESSOR CLOSING NOTE PATIENT TRANSFERRED TO ROOM 203 IN STABLE CONDITION. NO DISTRESS NOTED. REPORT GIVEN TO DIANE POMPA. ALL BELONGINGS AND MEDICATIONS WITH PATIENT.
--- NOTE | 2019-04-29 19:00 | NUR ---
RN MS OPENING NOTES TRANSFER NOTES RECEIVED PATIENT IN BED TRANSFER FROM ICU, DNR/DNI STATUS, LETHARGIC, EYES OPEN NONVERBAL, RESPIRATIONS EVEN AND UNLABORED AT THIS TIME SP02 93% ON 2 L VIA NC, GTUBE INTACT PROPERLY WORKING , INTERIANO CATHETER INTACT AND DRAINING WITH PROPER ALIGNMENT, RIGHT LEG CAST, SKIN ASSESSED, SACRAL BLANCHABLE REDNESS, MEPILEX APPLIED OFFLOADED, RIGHT UPPER ARM MIDLINE INTACT AND PATENT,IVF RUNNING ORDERED, AT THIS TIME APPEARS COMFORTABLE, WILL CONTINUE TO MONITOR AND ATTEND TO NEEDS, AND PROVIDE COMFORT NEEDS.
--- NOTE | 2019-04-29 21:48 | NUR ---
RN MS NOTES MORPHINE GIVEN ORDERED, VERIFIED WITNESSED AND WASTED WITH ANOTHER RN.
--- NOTE | 2019-04-29 21:48 | NUR ---
RN MS NOTES REPOSITIONING PROVIDED NOTED FACIAL GRIMACING, PRN MORPHINE GIVEN ORDERED FOR COMFORT. VS 115/54,98.6,20,93%
[2019-04-30] VITALS (11 sets, daily range): BP systolic 105–133; BP diastolic 61–74
[2019-04-30] MEDS: LORAZEPAM INJ 2 MG/ML VIAL IV PRN (01:46)
--- NOTE | 2019-04-30 01:46 | NUR ---
RN MS NOTES PRN ATIVAN ORDERED GIVEN FOR COMFORT, APPEARS UNEASY RESPIRATIONS 22, WILL CONTINUE TO MONITOR FOR EFFECTIVENESS. ATIVAN GIVEN ORDERED WASTED,VERIFIED AND WITNESSED WITH ANOTHER RN.
[2019-04-30] MEDS: JEVITY 1.2 CAL 1,000 ML BOTTLE GT PRN (01:53)
[2019-04-30] MEDS: MORPHINE SULFATE INJ 2 MG/ML DISP.SYRIN IV PRN (04:41)
--- NOTE | 2019-04-30 04:45 | NUR ---
RN MS NOTES REPOSITIONING PROVIDED NOTED FACIAL GRIMACING, PRN MORPHINE 3MG GIVEN ORDERED FOR COMFORT. NOTED RESPIRATIONS INCREASE TO 26. PRN MORPHINE WASTED, VERIFIED AND WITNESSED WITH ANOTHER RN. WILL CONTINUE TO MONITOR FOR EFFECTIVENESS.
--- NOTE | 2019-04-30 07:03 | NUR ---
RN MS CLOSING NOTES PATIENT IN BED ,DNR/DNI STATUS, LETHARGIC, EYES OPEN NONVERBAL, RESPIRATIONS LABORED AT THIS TIME SP02 93% ON 2 L VIA NC, GTUBE INTACT PROPERLY WORKING , INTERIANO CATHETER INTACT AND DRAINING WITH PROPER ALIGNMENT, RIGHT LEG CAST, SKIN ASSESSED, SACRAL BLANCHABLE REDNESS, MEPILEX APPLIED OFFLOADED, RIGHT UPPER ARM MIDLINE INTACT AND PATENT,IVF RUNNING ORDERED, AT THIS TIME APPEARS COMFORTABLE,HEAD OF BED ELEVATED FOR ASPIRATION PRECAUTIONS, SUCTIONED PRN TOLERATED WELL, WILL CONTINUE TO MONITOR AND ATTEND TO NEEDS,PROVIDED COMFORT NEEDS. ENDORSED TO NEXT SHIFT. Addendum: 04/30/19 at 0719 by GUERRERO JACOBS RN CLARIFICATION - RESPIRATIONS UNLABORED AT THIS TIME AT 18, MORPHINE WAS EFFECTIVE.
--- NOTE | 2019-04-30 07:26 | NUR ---
RN OPENING NOTE PT WAS RECEIVED IN BED AT LOWEST AND LOCKED POSITION WITH SIDE RAILS UP X2, PT NOTED TO BE LETHARGIC AND NONVERBAL, BREATHING IS NOTED TO BE LABORED BUT NO S/S OF PAIN NOTED AT THIS TIME, GTUBE IN PLACE AND WORKING, IV IS PATENT AND INTACT, INTERIANO IN PLACE, SAFETY PRECAUTIONS IN PLACE, CALL LIGHT IN REACH, WILL MONITOR ACCORDINGLY
[2019-04-30] MEDS: ZINC SULFATE 220 MG CAPSULE GT SCH (08:03)
[2019-04-30] MEDS: MULTIVIT W/MINERALS 1 TAB TABLET GT SCH (08:03)
[2019-04-30] MEDS: ASCORBIC ACID 500 MG TABLET GT SCH (08:03)
[2019-04-30] MEDS: DOCUSATE SODIUM LIQ 100 MG/10 ML UDC GT SCH (08:03)
[2019-04-30] MEDS: PROSOURCE / PROSTAT (PYXIS) 30 ML UDC GT SCH ×2 (08:03→16:13)
[2019-04-30] MEDS: PANTOPRAZOLE 40 MG VIAL IV SCH (09:12)
[2019-04-30] MEDS: FERROUS SULFATE UDC 300 MG/5 ML UDC GT SCH ×2 (09:40→16:13)
--- NOTE | 2019-04-30 18:29 | NUR ---
RN CLOSING NOTE PT IN BED AT LOWEST AND LOCKED POSITION WITH SIDE RAILS UP X2, PT IS CURRENTLY LETHARGIC AND NONVERBAL, BREATHING IS STILL LABORED BUT NO S/S OF PAIN NOTED AT THIS TIME, GTUBE IN PLACE AND WORKING, IV IS PATENT AND INTACT, INTERIANO IN PLACE WITH 1500 CC OUT THIS SHIFT, SAFETY PRECAUTIONS IN PLACE, CALL LIGHT IN REACH, ALL NEEDS ATTENDED TO, WILL ENDORSE TO NIGHT RN FOR BLACK.
--- NOTE | 2019-04-30 19:30 | NUR ---
MS RN OPENING NOTE RECEIVED PATIENT IN BED. A/O XO, PATIENT IS OBTUNDED. ON OXYGEN 2L/MIN VIA NASAL CANNULA. RESPIRATIONS ARE EVEN AND UNLABORED. NO S/S SOB NOTED AT THIS TIME. NO OBSERVATION OF ANY S/S OS PAIN AT THIS TIME. IV ACCESS IN XAVIER MIDLINE RUNNING 1/2 NS @40ML/HR. INTERIANO CATHETER IS PRESENT, DRAINING TO GRAVITY. GTUBE IS PRESENT, PLACEMENT CHECKED, ASPIRATED, FLUSHED WITH NO RESISTANCE RUNNING JEVITY 1.2@60ML/HR. BED IS LOW AND LOCKED, SIDE RAILS UP X2, HOB ELEVATED IN SEMI FOWLERS POSITION. CALL LIGHT WITHIN REACH. WILL CONTINUE TO MONITOR.
[2019-05-01 06:26] LABS: BASOPHILS # (AUTO) 0.1 /CMM (0.0-0.2); BASOPHILS % (AUTO) 0.7 % (0.0-2.0); HEMATOCRIT 30 % (33-45); HEMOGLOBIN 9.6 g/dL (11.5-14.8); LYMPHOCYTES # (AUTO) 0.9 /CMM (0.8-4.8); MEAN CORPUSCULAR HGB CONC 33 g/dl (31.0-36.0); MEAN CORPUSCULAR VOLUME 86 fL (82-100); MONOCYTES # (AUTO) 0.3 /CMM (0.1-1.30); MONOCYTES % (AUTO) 3.9 % (2.0-12.0); NEUTROPHILS # (AUTO) 7.1 /CMM (1.8-8.9); NEUTROPHILS % (AUTO) 83.4 % (43.0-81.0); PLATELET COUNT (AUTO) 530 /CMM (150-450); RED BLOOD CELL COUNT(AUTO) 3.45 MIL/uL (4.0-5.2); WHITE BLOOD COUNT (AUTO) 8.5 K/uL (4.3-11.0)
[2019-05-01 06:48] LABS: CALCIUM, SERUM 8.3 mg/dL (8.5-10.1); CREATININE 0.6 mg/dL (0.6-1.3); MAGNESIUM 2.2 mg/dL (1.8-2.4); PHOSPHORUS 3.2 mg/dL (2.5-4.9); POTASSIUM 4.3 mmol/L (3.5-5.1)
[2019-05-01] MEDS: JEVITY 1.2 CAL 1,000 ML BOTTLE GT PRN (06:58)
--- NOTE | 2019-05-01 07:25 | NUR ---
MS RN CLOSING NOTE PATIENT IN BED. A/O XO, PATIENT IS OBTUNDED. REMAINS ON OXYGEN 2L/MIN VIA NASAL CANNULA. RESPIRATIONS ARE EVEN AND UNLABORED. NO SOB NOTED. NO S/S OF MANIFESTATIONS OF PAIN. IV ACCESS MAINTAINED IN XAVIER MIDLINE RUNNING 1/2 NS @40ML/HR. INTERIANO CATHETER IS MAINTAINED, DRAINING TO GRAVITY, URINE IS YELLOW , OUTPUT 1350. GTUBE IS MAINTAINED RUNNING JEVITY 1.2@60ML/HR. BED IS LOW AND LOCKED, SIDE RAILS UP X2, HOB ELEVATED IN SEMI FOWLERS POSITION, ON [employer] [place]. CALL LIGHT WITHIN REACH. WILL ENDORSE TO NEXT SHIFT.
--- NOTE | 2019-05-01 07:47 | NUR ---
RN MS NOTES PT IN BED, AWAKE, NON VERBAL, LETHARGIC, NO SIGN OF PAIN, RESPIRATIONS REGULAR, EYES OPEN, GT FEEDING INFUSING WELL, CALL LIGHT WITHIN REACH, F/C IN PLACE, ON KAYODE MATTRESS, KEPT WARM AND COMFORTABLE IN BED.
[2019-05-01 08:07] VITALS: BP 128/75
[2019-05-01] MEDS: FERROUS SULFATE UDC 300 MG/5 ML UDC GT SCH ×2 (08:25→16:23)
[2019-05-01] MEDS: DOCUSATE SODIUM LIQ 100 MG/10 ML UDC GT SCH (08:25)
[2019-05-01] MEDS: ASCORBIC ACID 500 MG TABLET GT SCH (08:25)
[2019-05-01] MEDS: ZINC SULFATE 220 MG CAPSULE GT SCH (08:25)
[2019-05-01] MEDS: MULTIVIT W/MINERALS 1 TAB TABLET GT SCH (08:25)
[2019-05-01] MEDS: PROSOURCE / PROSTAT (PYXIS) 30 ML UDC GT SCH ×2 (08:26→16:23)
[2019-05-01] MEDS: PANTOPRAZOLE 40 MG VIAL IV SCH (09:42)
--- NOTE | 2019-05-01 12:06 | NUR ---
RN MS NOTES PT IN BED, RESTING, NO SIGN OF PAIN OR DISTRESS, SECRETIONS SUCTIONED NEEDED, REPOSITIONED FOR COMFORT, GT FEEDING TOLERATING WELL, F/C DRAINING WELL WITH CLEAR, YELLOW URINE, KEPT WARM AND COMFORTABLE IN BED.
[2019-05-01] MEDS: MORPHINE SULFATE INJ 2 MG/ML DISP.SYRIN IV PRN ×2 (14:35→20:37)
--- NOTE | 2019-05-01 14:43 | NUR ---
RN MS NOTES PT IN BED, RESTING, PT SEEN BY DR. VILLARREAL, PER MD, CONTINUE CURRENT MEDICATION AND MANAGEMENT, KEPT PT COMFORTABLE, IV FLUIDS INFUSING WELL, REPOSITIONED FOR COMFORT, KEPT CLEAN AND DRY.
[2019-05-01 16:22] VITALS: BP 139/86
--- NOTE | 2019-05-01 18:09 | NUR ---
RN MS NOTES PT IN BED, LETHARGIC, NO FACIAL GRIMACING, BREATHING REGULAR, MOUTH BREATHER, O2 SAT AT 100% ON 2L VIA N/C, GT FEEDING INFUSING WELL, IV FLUIDS INFUSING, F/C DRAINING WELL WITH CLEAR, YELLOW URINE, PM CARE PROVIDED, PM MEDS GIVEN ORDERED, PAIN MEDS GIVEN ORDERED, KEPT COMFORTABLE IN BED.
--- NOTE | 2019-05-01 19:10 | NUR ---
internet application developer: received report from brian brandon. pt in bed, obtunded, tachypneic, s/p extubation 04/30, pt on low flow oxygen via nc. on kci mattress, peter catheter in placed, bag draining by gravity, noted yellow colored urine output. suction set up secured. ambu bag at bed side. pt connected to continuous pulse oximetry to monitor hr and oxygenation. noted right leg splint in placed, ble offloaded on pillows. safety precautions for fall initiated, call light in reach, will continue monitoring pt.
[2019-05-01 20:00] VITALS: BP 141/88
--- NOTE | 2019-05-01 20:00 | NUR ---
rn notes/gtube patency/oral suction/iv access: pt's abdomen soft to touch with active bowel sound heard upon auscultation. noted abdominal distention. pt has gtube in placed, able to flush with 60ml of water without meeting any resistance, no residual obtained. currently receiving jevity 1.2 at 60ml/hr. noted pt to have weak cough, suction orally, oral care provided afterwards. noted right upper arm midlline in placed, patent and flushing well, receiving 1/2 ns at 40ml/hr. no s/s of iv infiltration noted.
[2019-05-01] MEDS: IV 1/2NS 1000 ML 1,000 ML IV PRN (20:36)
--- NOTE | 2019-05-01 20:38 | NUR ---
PRN MORPHINE: ELISABETH GALLEGOS, OBTAINED SCORE OF 8/10, NOTED FACIAL GRIMACE FREQUENT FROWN, TEARS FROM EYES, TACHYPNEIC. PRN MORPHINE 3MG IVP ADMINISTERED TO PT AT THIS TIME. WILL CONTINUE TO MONITOR AND REASSESS PT.
--- NOTE | 2019-05-01 21:06 | NUR ---
rn notes/oral suction: obtained thin whitish secretions upon suctioning, oral care provided afterwards. on conitnuous pulse oximetry, spo2 91%, hr 93, rr 19.
[2019-05-01 21:54] VITALS: BP 119/70
[2019-05-02] MEDS: JEVITY 1.2 CAL 1,000 ML BOTTLE GT PRN (02:36)
[2019-05-02] MEDS: MORPHINE SULFATE INJ 2 MG/ML DISP.SYRIN IV PRN ×2 (04:33→18:10)
--- NOTE | 2019-05-02 04:33 | NUR ---
PRN MORPHINE: FLACC SCALE UTILIZED, OBTAINED SCORE OF 8/10, PRN MORPHINE 3MG IVP ADMINISTERED AT THIS TIME.
--- NOTE | 2019-05-02 06:49 | NUR ---
EOSS: PT REMAINS OBTUNDED, MOUTH BREATHER, TACHYPNEIC, REMAINS ON 2L OXYGEN VIA NC. CONNECTED TO CONTINUOS PULSE OXIMETRY WITH CURRENT SPO2 READING OF 95%, HR 92 RR 21 . KEPT ON ASPIRATION PRECAUTION, HOB 30 DEGREE. IV ACCESS REMAINS PATENT AND FLUSHING WELL, INFUSING WITH IVF ORDERED. GTUBE REMAINS PATENT AND FLUSHING WELL, INFUSING WITH JEVITY 1.2 AT 60ML/HR, ABDOMEN REMAINS SOFT TO TOUCH, WITH ACTIVE BOWEL SOUND HEARD UPON AUSCULTATION. RLE SPLINT REMAINS IN PLACED. BLE OFFLOADED ON PILLOWS. SAFETY PRECAUTIONS FOR FALL REMAINS ENGAGED, CALL LIGHT IN REACH, WILL ENDORSE TO DAY RN FOR CONTINUITY OF CARE.
[2019-05-02] MEDS: LORAZEPAM INJ 2 MG/ML VIAL IV PRN (06:58)
--- NOTE | 2019-05-02 06:59 | NUR ---
prn ativan: noted twitching, restlessness, prn ativan 1mg ivp administered to pt at this time.
--- NOTE | 2019-05-02 07:45 | NUR ---
RN OPENING NOTES Patient received on 2l o2 nasal cannula, no sob noted, patient shows no s/s of pain at this time. Patient remains a mouth breather, vital signs stable, and spo2 in low 90's. Schneider remains intact and is draining. Jevity 1.2 @ 60 ml per hour that will remain on for 24 hours. Bed at the lowest setting, call light within reach, side rails up x2.
[2019-05-02 08:00] VITALS: BP 145/76
[2019-05-02] MEDS: DOCUSATE SODIUM LIQ 100 MG/10 ML UDC GT SCH (08:42)
[2019-05-02] MEDS: ZINC SULFATE 220 MG CAPSULE GT SCH (08:42)
[2019-05-02] MEDS: ASCORBIC ACID 500 MG TABLET GT SCH (08:42)
[2019-05-02] MEDS: MULTIVIT W/MINERALS 1 TAB TABLET GT SCH (08:42)
[2019-05-02] MEDS: FERROUS SULFATE UDC 300 MG/5 ML UDC GT SCH ×2 (08:42→17:20)
[2019-05-02] MEDS: PROSOURCE / PROSTAT (PYXIS) 30 ML UDC GT SCH ×2 (08:43→17:20)
[2019-05-02] MEDS: PANTOPRAZOLE 40 MG VIAL IV SCH (09:14)
[2019-05-02 16:00] VITALS: BP 110/62
--- NOTE | 2019-05-02 18:23 | NUR ---
RN CLOSING NOTES Patient remains on 2l nasal cannula, no sob noted, patient remains a mouth breather, shows no s/s of pain at this time. Bed remains on 45 degrees. . G tube remains with feeding at this time, 60 ml per hour. Gave report to Lisa in [facility]. Bed at the lowest setting, call light within reach, side rails up x2. Addendum: 05/02/19 at 1826 by ASHER HEDRICK RN Lisa wants the Rodriguez removed, and XAVIER midline removed. Photos taken and they are in the chart.
--- NOTE | 2019-05-02 19:07 | NUR ---
RN D/C NOTES Patient d/c at this time, kang lopez wants the peter removed and XAVIER midline removed. Paper work with patient, no sob noted, vital signs stable. All paper work with patient and nothing is missing at this time. Patient picked up by ambulance. Photos taken, and all belongings with patient.
== END 2019-05-02 19:04 | DRG 870 ==
LOC: ER 11:59 → ICU 13:11 → MEDSG2 04-29 18:49
PROVIDERS: ADMIT Student in an Organized Health Care Education/Training Program; ATTEND Nurse Practitioner Acute Care
PROC: 05HB33Z Insertion of Infusion Device into Right Basilic Vein, Percutaneous Approach (ICD-10-PCS; principal; 2019-04-20)
PROC: 5A1955Z Respiratory Ventilation, Greater than 96 Consecutive Hours (ICD-10-PCS; 2019-04-20)
PROC: 0BH17EZ Insertion of Endotracheal Airway into Trachea, Via Natural or Artificial Opening (ICD-10-PCS; 2019-04-20)
DX: A41.9 Sepsis, unspecified organism (principal); J15.6 Pneumonia due to other Gram-negative bacteria; J69.0 Pneumonitis due to inhalation of food and vomit; N17.0 Acute kidney failure with tubular necrosis; I21.A1 Myocardial infarction type 2; R53.2 Functional quadriplegia; J96.01 Acute respiratory failure with hypoxia; G92 Toxic encephalopathy; E87.2 Acidosis; B37.49 Other urogenital candidiasis; E87.0 Hyperosmolality and hypernatremia; R65.20 Severe sepsis without septic shock; D47.3 Essential (hemorrhagic) thrombocythemia; E86.0 Dehydration; F02.80 Dementia in other diseases classified elsewhere, unspecified severity, without behavioral disturbance, psychotic disturbance, mood disturbance, and anxiety; G30.9 Alzheimer's disease, unspecified; R29.6 Repeated falls; R26.9 Unspecified abnormalities of gait and mobility; Z93.1 Gastrostomy status; I11.0 Hypertensive heart disease with heart failure; I50.9 Heart failure, unspecified; D50.9 Iron deficiency anemia, unspecified; R13.10 Dysphagia, unspecified; F09 Unspecified mental disorder due to known physiological condition; E83.51 Hypocalcemia; R73.9 Hyperglycemia, unspecified; Z86.73 Personal history of transient ischemic attack (TIA), and cerebral infarction without residual deficits; B96.20 Unspecified Escherichia coli [E. coli] as the cause of diseases classified elsewhere; Z66 Do not resuscitate
CPT/HCPCS: 31720; 36415; 36600; 71045-TC; 80048-TC; 80053-TC; 80061-TC; 80076-TC; 80202-TC; 81000-TC; 82272-TC; 82550-TC; 82570-TC; 82728-TC; 82803-TC; 83540-TC; 83605-TC; 83735-TC; 83970; 84100-TC; 84155; 84155-TC; 84165; 84300-TC; 84484-TC; 85025-TC; 85730-TC; 87040-TC; 87070-TC; 87081-TC; 87086-TC; 87186-TC; 94002-TC; 94003-TC; 94640-TC; 94760-TC; 94799-TC; 99082-TC; A4216; A6253; C9113; G0378; J1650; J2060; J2185; J2270; J3370; J3480; J3490; J7030; J7060

== ENCOUNTER 2019-05-09 12:06 | Inpatient (IN) | payer MEDICARE, OTHER, MEDICAID ==
[2019-05-09] VITALS (36 sets, daily range): BP systolic 83–150; BP diastolic 51–84
[~2019-05-09] VITALS: Ht 162.6 cm; Wt 65.3 kg
[~2019-05-09 12:06] MED LIST changes: +ACET-2605 GT; +AMIN30LI2 GT; -CRAN3875 PO; +FERR300L GT; -FERR325T28 PO; -IPRA0.2S49 NEB; +NUT.237L25 GT; +VIT500LI GT; +ZINC1CAP2 GT
--- NOTE | 2019-05-09 12:18 | NUR ---
Patient BIBA RA 78 From [facility] "Breathing fast/Low O2 sats". patient o2 sat 93% with O2 at 15L/min via NRB. noted with labored breathing. Dr Allen at bedside
--- NOTE | 2019-05-09 12:20 | NUR ---
Prepare intubation set up per Dr Allen.RT made aware
--- NOTE | 2019-05-09 12:20 | NUR ---
CALLED HOUSE SUP FOR PICC LINE
[2019-05-09] MEDS ORDERED: MEROPENEM 1,000 MG in IV NS 0.9% 100 ML IV ONE (12:30)
[2019-05-09] MEDS ORDERED: IV NS 0.9% 1,000 ML BAG IV ONE (12:30)
[2019-05-09 12:34] LABS: BASOPHILS # (AUTO) 0.1 /CMM (0.0-0.2); BASOPHILS % (AUTO) 0.2 % (0.0-2.0); EOSINOPHILS % (AUTO) 0.5 % (0.0-6.0); HEMATOCRIT 38 % (33-45); HEMOGLOBIN 11.8 g/dL (11.5-14.8); LYMPHOCYTES # (AUTO) 0.5 /CMM (0.8-4.8); LYMPHOCYTES % (AUTO) 1.7 % (20.0-44.0); MEAN CORPUSCULAR HGB CONC 31 g/dl (31.0-36.0); MEAN CORPUSCULAR VOLUME 85 fL (82-100); MONOCYTES # (AUTO) 1.1 /CMM (0.1-1.30); MONOCYTES % (AUTO) 3.9 % (2.0-12.0); NEUTROPHILS # (AUTO) 26.9 /CMM (1.8-8.9); NEUTROPHILS % (AUTO) 93.7 % (43.0-81.0); PLATELET COUNT (AUTO) 370 /CMM (150-450); RED BLOOD CELL COUNT(AUTO) 4.49 MIL/uL (4.0-5.2); WHITE BLOOD COUNT (AUTO) 28.7 K/uL (4.3-11.0)
[2019-05-09 12:42] LABS: CARBON DIOXIDE 26 mmol/L (21-32); CHLORIDE 108 mmol/L (98-107); CREATININE 0.9 mg/dL (0.6-1.3); GLUCOSE 180 mg/dL (74-106); POTASSIUM 4.5 mmol/L (3.5-5.1); SODIUM SERUM 145 mmol/L (136-145); UREA NITROGEN, BLOOD 43 mg/dL (7-18)
--- NOTE | 2019-05-09 12:44 | NUR ---
CALLED FOR ICU BED AND TURNED IN MOVE SHEET TO ADMITTING.
--- NOTE | 2019-05-09 12:45 | NUR ---
ADMINISTERED 20MG ETOMIDATE IVP AND 100MG SUCCINYCHOLINE IVP. INTUBATION PERFORMED BY DR VALENZUELA. COLOR CHANGE NOTED. BILATERAL CHEST RISE NOTED POST INTUBATION.
[2019-05-09 12:48] LABS: ALANINE AMINOTRANSFERASE 19 U/L (12-78); ALBUMIN 2.3 g/dL (3.4-5.0); ALKALINE PHOSPHATASE 188 U/L (46-116); ASPARTATE AMINOTRANSFERASE 21 U/L (15-37); BILIRUBIN,DIRECT 0.2 mg/dL (0.0-0.2); BILIRUBIN,TOTAL 0.4 mg/dL (0.2-1.0); TOTAL PROTEIN, SERUM 6.8 g/dL (6.4-8.2)
[2019-05-09] MEDS ORDERED: ASCO500C16 PO (12:48)
[2019-05-09] MEDS ORDERED: LACT-96 GT (12:48)
[2019-05-09] MEDS ORDERED: PROPOFOL 10MG/ML 50ML 50 ML IV PRN (13:00)
[2019-05-09] MEDS ORDERED: IV NS 0.9% 1,000 ML IV ONE (13:00)
--- NOTE | 2019-05-09 13:06 | NUR ---
MATT ARANGO AT BEDSIDE FOR PICC LINE INSERTION
--- NOTE | 2019-05-09 13:18 | NUR ---
RT PT CAME IN VIA EMS FOR SOB, INTUBATED BY DR VALENZUELA WITH 7.0 ETT SECURED AT 23 CM EQUAL BILATERAL CHEST RISE EC02 POSITIVE COLOR CHANGE, BAG AND MASK AT [facility] PLACED ON [facility] VENT WITH FOLLOWING SETTINGS OF AC 14 450 +5 50% BRENDA SETTINGS ALARMS ON AND AUDIBLE WILL CONT TO MONITOR Addendum: 05/09/19 at 1322 by PATRICIA MARTINEZ RT Amended: Links added.
[2019-05-09] MEDS ORDERED: NOREPINEPHRINE 8 MG in IV D5W 500 ML IV ONE (13:30)
[2019-05-09] MEDS ORDERED: VANCOMYCIN 1 GM in IV D5W 250 ML IV ONE (13:30)
--- NOTE | 2019-05-09 13:38 | NUR ---
RECIEVED BED 255
[2019-05-09 14:17] LABS: ABG BASE EXCESS 1.4 mmol/L; ABG OXYGEN SATURATION 98.2 % (92.0-98.5); ABG PCO2 39.2 mmHg (35.0-45.0); ABG PH 7.433 (7.350-7.450); ABG PO2 128.2 mmHg (75.0-100.0); AaDO2 184.2 mmHg; COHb 0.5 % (0.5-1.5); MetHb 0.3 % (0.0-1.5); O2Hb 97.4 % (94.0-97.0); SITE, ABG Left Radial; VENT MODE, BG AC14 450 +5 50%
--- NOTE | 2019-05-09 14:56 | NUR ---
REPORT GIVEN TO KATY CONTRERAS FOR BLACK
[2019-05-09 14:59] LABS: BILIRUBIN,URINE Negative (NEGATIVE); BLOOD, URINE Negative Ery/uL (NEGATIVE); COLOR,URINE Yellow (YELLOW); KETONES,URINE Trace (NEGATIVE); LEUKOCYTE ESTERASE ,URINE Small (NEGATIVE); NITRITE, URINE Negative (NEGATIVE); PROTEIN,URINE >=300 mg/dl (NEGATIVE); UGLUCOSE Negative (NEGATIVE)
[2019-05-09 15:00] LABS: APPEARANCE,URINE Turbid (CLEAR); PH,URINE >8.5 (5.0-8.0)
[2019-05-09] MEDS ORDERED: SUCCINYLCHOLINE CHLORIDE 20 MG/ML VIAL IV ONE (15:00)
[2019-05-09] MEDS ORDERED: ETOMIDATE 2 MG/ML VIAL IV ONE (15:00)
[2019-05-09 15:10] LABS: BACTERIA,URINE Many /HPF (None Seen); RBC,URINE 0-3 /HPF (0-2); SQUAMOUS EPITHELIAL CELL,UR Few /HPF (None Seen)
--- NOTE | 2019-05-09 15:11 | NUR ---
LACTIC ACID 3.3
[2019-05-09] MEDS ORDERED: FEE PK DOSING 1 MIN EA MC ONE (15:19)
[2019-05-09] MEDS: IV 1/2NS 1000 ML 1,000 ML IV PRN (15:22)
[2019-05-09] MEDS ORDERED: HYDROCODONE/APAP 5/325MG 1 EACH TABLET PO PRN (15:30)
[2019-05-09] MEDS ORDERED: ACETAMINOPHEN 650 MG/SUPP.RECT RC PRN (15:30)
[2019-05-09] MEDS ORDERED: BISACODYL SUPP (10 MG) 10 MG/SUPP.RECT SUPP.RECT RC PRN (15:30)
[2019-05-09] MEDS ORDERED: MAGNESIUM HYDROXIDE 30 ML UDC PO PRN (15:30)
[2019-05-09] MEDS ORDERED: Z GUARD REMEDY 2 OZ OINT TP PRN (15:30)
[2019-05-09] MEDS ORDERED: ONDANSETRON HCL/PF 4 MG/2 ML VIAL IVP PRN (15:30)
[2019-05-09] MEDS ORDERED: MAG HYDROX/AL HYDROX/SIMETH 30 ML UDC PO PRN (15:30)
[2019-05-09] MEDS ORDERED: NA PHOS,M-B/NA PHOS,DI-BA 1 EA ENEMA RC PRN (15:30)
[2019-05-09] MEDS ORDERED: MORPHINE SULFATE INJ 2 MG/ML DISP.SYRIN IV PRN (15:30)
--- NOTE | 2019-05-09 15:30 | NUR ---
RN INITIAL NOTES RECEIVED PT FROM ER VIA MARCE. PT INTUBATED,SEDATED. TOLERATING VENT WELL. NO RESPIRATORY DISTRESS. NO SOB NOTED. NO SIGNS OF PAIN NOTED. PLACED COMFORTABLY TO BED. CONNECTED TO MONITOR. XAVIER PICC IN PLACE. LEVO AT 12MCG/MIN AND DIPRIVAN AT 40MCG/KG/MIN. FC IN PLACE. NO HEMATURIA NOTED. BODY ASSESSMENT DONE. PICTURES TAKEN AND PLACED IN THE CHART. KONRAD, WING COVERER AWARE OF ADMISSION. AWAITING FOR ORDERS. WILL CLOSELY MONITOR
[2019-05-09] MEDS: MEROPENEM 1 G in IV NS 0.9% 100 ML IV SCH (16:15)
[2019-05-09] MEDS: FERROUS SULFATE UDC 300 MG/5 ML UDC GT SCH (16:15)
[2019-05-09] MEDS: ENOXAPARIN SODIUM 40 MG/0.4 ML DISP.SYRIN SQ SCH (16:17)
[2019-05-09] MEDS: PROPOFOL 100 ML IV PRN (16:45)
[2019-05-09] MEDS: NOREPINEPHRINE 8 MG in IV D5W 500 ML IV PRN (17:43)
--- NOTE | 2019-05-09 18:32 | NUR ---
RN CLOSING NOTES NO SIGNIFICANT CHANGE NOTED. PT REMAINS INTUBATED AND SEDATED. NO RESPIRATORY DISTRESS NOTED. NO SOB NOTED. NO SIGNS OF PAIN NOTED. KEPT CLEAN AND DRY. REPOSITIONED Q2. BLE ELEVATED. WILL ENDORSE FOR CONTINUITY OF CARE.
--- NOTE | 2019-05-09 20:00 | NUR ---
RT Pt received trached on mechanical ventilation with noted settings. Pt is stable. Vent is plugged into red outlet. No SOB or respiratory distress noted at this time. will continue to monitor. Addendum: 05/09/19 at 2000 by NICO HUTCHINSON RT Amended: Links added.
--- NOTE | 2019-05-09 20:00 | NUR ---
MANAGER CALL CENTER - NOTES - RECEIVED PT INTUBATED, SEDATED. TOLERATING VENT WELL. NO RESPIRATORY DISTRESS. NO SOB NOTED. NO SIGNS OF PAIN NOTED. RESTING COMFORTABLY TO BED. XAVIER PICC IN PLACE. LEVO AT 8 MCG/MIN AND DIPRIVAN AT 40 MCG/KG/MIN. FC IN PLACE. NO HEMATURIA NOTED. WILL CLOSELY MONITOR
[2019-05-09] MEDS: METOPROLOL TARTRATE 25 MG TABLET GT SCH (20:26)
[2019-05-10] VITALS (87 sets, daily range): BP systolic 81–144; BP diastolic 51–87
[2019-05-10] MEDS: PROPOFOL 100 ML IV PRN ×3 (00:08→16:40)
[2019-05-10 04:24] LABS: BASOPHILS # (AUTO) 0.1 /CMM (0.0-0.2); BASOPHILS % (AUTO) 0.6 % (0.0-2.0); EOSINOPHILS % (AUTO) 0.7 % (0.0-6.0); HEMATOCRIT 33 % (33-45); HEMOGLOBIN 10.5 g/dL (11.5-14.8); LYMPHOCYTES # (AUTO) 1.4 /CMM (0.8-4.8); LYMPHOCYTES % (AUTO) 6.4 % (20.0-44.0); MEAN CORPUSCULAR HGB CONC 32 g/dl (31.0-36.0); MEAN CORPUSCULAR VOLUME 84 fL (82-100); MONOCYTES # (AUTO) 0.8 /CMM (0.1-1.30); MONOCYTES % (AUTO) 3.6 % (2.0-12.0); NEUTROPHILS % (AUTO) 88.7 % (43.0-81.0); PLATELET COUNT (AUTO) 361 /CMM (150-450); RED BLOOD CELL COUNT(AUTO) 3.93 MIL/uL (4.0-5.2); WHITE BLOOD COUNT (AUTO) 22.6 K/uL (4.3-11.0)
[2019-05-10 04:34] LABS: CALCIUM, SERUM 8.6 mg/dL (8.5-10.1); CREATININE 0.7 mg/dL (0.6-1.3); POTASSIUM 3.9 mmol/L (3.5-5.1)
[2019-05-10 04:45] LABS: BILIRUBIN,TOTAL 0.6 mg/dL (0.2-1.0); MAGNESIUM 1.9 mg/dL (1.8-2.4); PHOSPHORUS 3.2 mg/dL (2.5-4.9); TOTAL PROTEIN, SERUM 5.9 g/dL (6.4-8.2)
[2019-05-10] MEDS: MEROPENEM 1 G in IV NS 0.9% 100 ML IV SCH ×2 (05:04→16:42)
[2019-05-10] MEDS: IV 1/2NS 1000 ML 1,000 ML IV PRN (05:04)
--- NOTE | 2019-05-10 07:10 | NUR ---
RN INITIAL NOTES PT INTUBATED,SEDATED. NO RESPIRATORY DISTRESS NOTED. NO SOB NOTED. NO SIGNS OF PAIN NOTED. XAVIER PICC IN PLACE. PT ON LEVO AT 2MCG/MIN AND DIPRIVAN AT 30MCG/KG/MIN. WILL TITRATE ACCORDINGLY. FC IN PLACE. PT COMFORTABLE. WILL MONITOR
--- NOTE | 2019-05-10 07:57 | NUR ---
WOUND CARE CONSULT: PT PRESENTS WITH SACRAL SCARRING, RASH TO PERINEUM AND LOWER BUTTOCKS AND ORTHO SPLINT/DRESSING TO RT LEG, PRESENT ON ADMISSION. RECOMMEND ORTHO FOLLOW UP. RECOMMENDATIONS MADE FOR SKIN PROTECTION AND DISCUSSED WITH NURSING STAFF. FIRST STEP LOW AIRLOSS MATTRESS ORDERED. CURRENT TAMY SCORE IS 12. WILL SEE PRN. WALTERS IN AGREEMENT WITH PLAN OF CARE. Addendum: 05/10/19 at 0801 by BELLA ADAMES WNDNU Amended: Links added.
[2019-05-10 08:19] LABS: IRON, SERUM 26 ug/dl (50-175); TOTAL IRON BINDING CAPACITY 221 ug/dl (250-450)
[2019-05-10 08:36] LABS: FERRITIN 317 ng/mL (8-388)
[2019-05-10] MEDS: ASCORBIC ACID 500 MG TABLET PO SCH (08:37)
[2019-05-10] MEDS: MULTIVIT W/MINERALS 1 TAB TABLET GT SCH (08:37)
[2019-05-10] MEDS: PANTOPRAZOLE 40 MG VIAL IV SCH (08:37)
[2019-05-10] MEDS: VANCOMYCIN 1 GM in IV D5W 250 ML IV SCH (08:37)
[2019-05-10] MEDS: ZINC SULFATE 220 MG CAPSULE GT SCH (08:37)
[2019-05-10] MEDS: HYDROCORTISONE SOD SUCCINATE 100 MG/2 ML VIAL IV SCH ×3 (08:37→16:40)
[2019-05-10] MEDS: DOCUSATE SODIUM 100 MG CAPSULE PO SCH (08:37)
[2019-05-10] MEDS: FERROUS SULFATE UDC 300 MG/5 ML UDC GT SCH ×2 (08:37→16:40)
[2019-05-10] MEDS: METOPROLOL TARTRATE 25 MG TABLET GT SCH ×2 (08:39→21:00)
[2019-05-10] MEDS: IV NS 0.9% 1,000 ML IV PRN ×2 (09:21→16:40)
[2019-05-10] MEDS: CLOTRIMAZOLE 1% 15 GM TUBE TP SCH ×2 (09:23→16:40)
--- NOTE | 2019-05-10 10:00 | NUR ---
RN NOTES 0930 SEEN AND EXAMINED BY DR ELLINGTON. AWARE OF LAB VALUES AND IMAGING STUDIES. WILL MONITOR 1000 SEEN AND EXAMINED BY DR NAJERA. PT REMAINS INTUBATED, TOLERATING VENT WELL. NO RESPIRATORY DISTRESS NOTED. NO SOB NOTED. KEPT HOB ELEVATED. WILL CONTINUE TO MONITOR.
[2019-05-10] MEDS: FLUDROCORTISONE 0.1 MG TABLET GT SCH ×2 (12:06→17:08)
[2019-05-10] MEDS: SCOPOLAMINE HBR 1 EA PATCH.TD72 TD SCH (14:45)
[2019-05-10] MEDS: NOREPINEPHRINE 8 MG in IV D5W 500 ML IV PRN (15:42)
--- NOTE | 2019-05-10 20:48 | NUR ---
PT RCVD ORALLY INTUBATED WITH 7.0 ETT AND 23 CM AT LIP ON MECHANICAL VENT WITH CHARTED SETTINGS. SX DONE. PT ETT IS PATENT AND SECURE. VENT ALARMS APPEAR TO BE FUNCTIONING PROPERLY. VENT PLUGGED INTO RED OUTLET. AMBU BAG AT BEDSIDE. NO SOB NOTED. Addendum: 05/10/19 at 2048 by MARILIN REYES RT Amended: Links added.
[2019-05-10] MEDS: ENOXAPARIN SODIUM 40 MG/0.4 ML DISP.SYRIN SQ SCH (21:18)
[2019-05-11] VITALS (97 sets, daily range): BP systolic 82–145; BP diastolic 50–78
[2019-05-11] MEDS: PROPOFOL 100 ML IV PRN ×4 (00:30→20:45)
[2019-05-11] MEDS: FLUDROCORTISONE 0.1 MG TABLET GT SCH ×4 (00:30→17:38)
[2019-05-11] MEDS: VANCOMYCIN 1 GM in IV D5W 250 ML IV SCH ×2 (01:59→20:30)
[2019-05-11] MEDS: IV NS 0.9% 1,000 ML IV PRN ×2 (01:59→12:06)
[2019-05-11] MEDS: MEROPENEM 1 G in IV NS 0.9% 100 ML IV SCH ×2 (05:00→16:21)
[2019-05-11 05:17] LABS: CALCIUM, SERUM 8.5 mg/dL (8.5-10.1); CARBON DIOXIDE 25 mmol/L (21-32); CHLORIDE 107 mmol/L (98-107); CREATININE 0.5 mg/dL (0.6-1.3); GLUCOSE 141 mg/dL (74-106); POTASSIUM 3.1 mmol/L (3.5-5.1); SODIUM SERUM 143 mmol/L (136-145); UREA NITROGEN, BLOOD 26 mg/dL (7-18)
[2019-05-11] MEDS: POTASSIUM CHLORIDE 20 MEQ POWDER PACKET NG SCH ×3 (07:46→09:48)
[2019-05-11] MEDS: ASCORBIC ACID 500 MG TABLET PO SCH (08:03)
[2019-05-11] MEDS: PANTOPRAZOLE 40 MG VIAL IV SCH (08:03)
[2019-05-11] MEDS: FERROUS SULFATE UDC 300 MG/5 ML UDC GT SCH ×2 (08:03→16:21)
[2019-05-11] MEDS: ZINC SULFATE 220 MG CAPSULE GT SCH (08:03)
[2019-05-11] MEDS: HYDROCORTISONE SOD SUCCINATE 100 MG/2 ML VIAL IV SCH ×3 (08:03→16:21)
[2019-05-11] MEDS: DOCUSATE SODIUM 100 MG CAPSULE PO SCH (08:04)
[2019-05-11] MEDS: MULTIVIT W/MINERALS 1 TAB TABLET GT SCH (08:04)
[2019-05-11] MEDS: METOPROLOL TARTRATE 25 MG TABLET GT SCH ×2 (08:23→20:30)
[2019-05-11] MEDS: CLOTRIMAZOLE 1% 15 GM TUBE TP SCH ×2 (08:26→17:38)
[2019-05-11] MEDS ORDERED: POTASSIUM CHLORIDE 20 MEQ POWDER PACKET GT SCH (12:00)
[2019-05-11] MEDS: SOD FERRIC GLUC 125 MG in IV NS 0.9% 100 ML IV SCH (13:12)
[2019-05-11] MEDS: NOREPINEPHRINE 8 MG in IV D5W 500 ML IV PRN (14:43)
--- NOTE | 2019-05-11 15:08 | NUR ---
PT RC'D ORALLY INTUBATED via sz #7.0 ETT secured at 23 CM AT the LIP line ON [facility] VENT WITH CHARTED SETTINGS. SX'd for thick mod amt of pale yellow secretions. VENT ALARMS FUNCTIONING PROPERLY. VENT PLUGGED INTO RED OUTLET. AMBU BAG AT BEDSIDE. NO SOB NOTED Addendum: 05/11/19 at 1510 by MEGHANN BOB RT Amended: Links added.
--- NOTE | 2019-05-11 19:20 | NUR ---
RN NOTE: Bedside report was given to Zahra MILL CONTROLLER for continuity of care and patient remained intubated and sedated with Diprivan 40mcg/min and Levophed 1mcg/min. Patient had 1 bowel movement during the shift. Still pending for dietary consultation and will continue with the current IV fluid order.
--- NOTE | 2019-05-11 19:30 | NUR ---
HIDE SELECTOR PT NOTED VERY SEDATED DECREASED PROPOFOL TO 35 MCG/KG/MIN CONTINUE TO MONITOR.
--- NOTE | 2019-05-11 20:00 | NUR ---
MANAGER CHEMICAL LEVOPHED TITRATED OFF PER PROTOCOL; CONTINUE TO MONITOR.
[2019-05-11] MEDS: ENOXAPARIN SODIUM 40 MG/0.4 ML DISP.SYRIN SQ SCH (20:31)
--- NOTE | 2019-05-11 21:00 | NUR ---
CAGE MANAGER PT NOTED VERY SEDATED DECREASED PROPOFOL TO 30 MCG/KG/MIN CONTINUE TO MONITOR. SINUS LUCIANA 50s NOTED.
--- NOTE | 2019-05-11 22:45 | NUR ---
EXTENDER RT INCREASED FIO2 TO 100%; CONTINUE TO MONITOR.
--- NOTE | 2019-05-11 23:00 | NUR ---
PENCIL SORTER SP O2 SENSOR CHANGED SATURATION 100% CONTINUE TO MONITOR.
[2019-05-12] VITALS (54 sets, daily range): BP systolic 77–136; BP diastolic 28–81
--- NOTE | 2019-05-12 | NUR ---
JOB SUPERINTENDENT PT CONTINUES TO SAT AT 100% NO DISTRESS NOTED; CALLED RT TO DECREASE O2. CONTINUE TO MONITOR.
[2019-05-12] MEDS: FLUDROCORTISONE 0.1 MG TABLET GT SCH ×5 (00:30→23:43)
[2019-05-12] MEDS: IV NS 0.9% 1,000 ML IV PRN ×3 (00:30→21:22)
--- NOTE | 2019-05-12 02:30 | NUR ---
WASTE EXAMINER PT CONTINUES TO HAVE LARGE AMOUNTS OF FROTHY SECRETION; REQUIRES HOURLY SUCTIONING.
[2019-05-12 04:56] LABS: BASOPHILS % (AUTO) 0.1 % (0.0-2.0); EOSINOPHILS % (AUTO) 0.1 % (0.0-6.0); HEMATOCRIT 30 % (33-45); HEMOGLOBIN 9.6 g/dL (11.5-14.8); LYMPHOCYTES % (AUTO) 11.2 % (20.0-44.0); MEAN CORPUSCULAR HGB CONC 32 g/dl (31.0-36.0); MEAN CORPUSCULAR VOLUME 83 fL (82-100); MONOCYTES # (AUTO) 0.3 /CMM (0.1-1.30); MONOCYTES % (AUTO) 3.8 % (2.0-12.0); NEUTROPHILS # (AUTO) 7.4 /CMM (1.8-8.9); NEUTROPHILS % (AUTO) 84.8 % (43.0-81.0); PLATELET COUNT (AUTO) 284 /CMM (150-450); RED BLOOD CELL COUNT(AUTO) 3.55 MIL/uL (4.0-5.2); WHITE BLOOD COUNT (AUTO) 8.7 K/uL (4.3-11.0)
[2019-05-12 05:09] LABS: ALANINE AMINOTRANSFERASE 16 U/L (12-78); ALBUMIN 1.9 g/dL (3.4-5.0); ALKALINE PHOSPHATASE 124 U/L (46-116); ASPARTATE AMINOTRANSFERASE 13 U/L (15-37); BILIRUBIN,TOTAL 0.3 mg/dL (0.2-1.0); CALCIUM, SERUM 8.4 mg/dL (8.5-10.1); CARBON DIOXIDE 24 mmol/L (21-32); CHLORIDE 113 mmol/L (98-107); CREATININE 0.5 mg/dL (0.6-1.3); GLUCOSE 107 mg/dL (74-106); PHOSPHORUS 2.8 mg/dL (2.5-4.9); POTASSIUM 3.3 mmol/L (3.5-5.1); SODIUM SERUM 144 mmol/L (136-145); TOTAL PROTEIN, SERUM 5.3 g/dL (6.4-8.2); UREA NITROGEN, BLOOD 23 mg/dL (7-18)
[2019-05-12] MEDS: MEROPENEM 1 G in IV NS 0.9% 100 ML IV SCH ×2 (06:01→16:17)
[2019-05-12] MEDS: PROPOFOL 100 ML IV PRN ×2 (06:01→16:20)
--- NOTE | 2019-05-12 06:27 | NUR ---
INSPECTOR AND CLERK PT REMAINED ON 50% FI 02 NO DISTRESS NOTED.
--- NOTE | 2019-05-12 07:20 | NUR ---
RN NOTE: Received patient in bed, sedated and intubated with ETT 7.0 attached to lip line @23cm. Respiration even and unlabored and was tolerating the current vent setting. HOB elevated. Bed alarmed and locked at all times. (R) UA PICC line noted patent and intact and was infusing Diprivan 25mcg/min and patient was kept sedated. Patient's cardiac reading was sinus bradycardia HR 45. Schneider catheter in placed with good amount of yellow urine draining to gravity. Will continue to monitor the patient's blood pressure and will follow-up with the dietitian regarding the tube feeding. Patient kept NPO except medications at this time. Needs anticipated.
[2019-05-12] MEDS: POTASSIUM CL. PREMIX PERIPHER. 50 ML IV SCH ×4 (07:37→11:03)
[2019-05-12] MEDS: METOPROLOL TARTRATE 25 MG TABLET GT SCH ×2 (09:00→20:49)
[2019-05-12] MEDS: MULTIVIT W/MINERALS 1 TAB TABLET GT SCH (09:51)
[2019-05-12] MEDS: ZINC SULFATE 220 MG CAPSULE GT SCH (09:51)
[2019-05-12] MEDS: ASCORBIC ACID 500 MG TABLET PO SCH (09:51)
[2019-05-12] MEDS: PANTOPRAZOLE 40 MG VIAL IV SCH (09:51)
[2019-05-12] MEDS: FERROUS SULFATE UDC 300 MG/5 ML UDC GT SCH ×2 (09:51→16:56)
[2019-05-12] MEDS: DOCUSATE SODIUM 100 MG CAPSULE PO SCH (09:51)
[2019-05-12] MEDS: CLOTRIMAZOLE 1% 15 GM TUBE TP SCH ×2 (09:52→16:57)
--- NOTE | 2019-05-12 11:46 | NUR ---
RN NOTE: JEANIE Madrid was informed of the dietary recommendation for the tube feeding and he agreed with it. Current IV fluid order was changed to NS @50ml/hr. Order noted and carried out.
[2019-05-12] MEDS: HYDROCORTISONE SOD SUCCINATE 100 MG/2 ML VIAL IV SCH ×2 (12:02→16:56)
[2019-05-12] MEDS: JEVITY 1.2 CAL 1,000 ML BOTTLE GT PRN (13:28)
[2019-05-12] MEDS: VANCOMYCIN 1 GM in IV D5W 250 ML IV SCH (13:29)
[2019-05-12] MEDS: SOD FERRIC GLUC 125 MG in IV NS 0.9% 100 ML IV SCH (15:09)
--- NOTE | 2019-05-12 19:25 | NUR ---
RN NOTE: Bedside report was given to Tamika OYSTER PREPARER for continuity of care. Patient remained intubated and remained off the Levophed since last night at 8 pm. Schneider catheter in placed with yellow urine draining to gravity. (R) UA PICC line in placed. Patient currently on GT feeding of Jevity 1.2 @ 20cc/hr and was tolerating it well.
--- NOTE | 2019-05-12 19:30 | NUR ---
MARKETING OPERATIONS CONSULTANT NOTE RECEIVED PT INTUBATED AND SEDATED. ETT IN PLACE AND VENT SETTINGS TOLERATING WELL. BREATHING UNLABORED. HOB ELEVATED AND ON ASPIRATION PRECAUTIONS. TELE- SB. XAVIER PICC CLEAN AND PATENT WITH DIPRIVAN AND IV FLUIDS INFUSING. GT FEEDING INFUSING WITHOUT RESIDUALS NOTED. INTERIANO CATHETER IN PLACE AND DRAINING BY GRAVITY. BILATERAL SOFT WRIST RESTRAINTS IN PLACE WITH PALPABLE BILATERAL PULSES AND NO DISCOLORATION NOTED. WILL CONTINUE TO MONITOR.
[2019-05-12] MEDS: ENOXAPARIN SODIUM 40 MG/0.4 ML DISP.SYRIN SQ SCH (20:48)
[2019-05-12] MEDS ORDERED: NOREPINEPHRINE 4 MG/4 ML AMPUL IV ONE (22:18)
[2019-05-12] MEDS: NOREPINEPHRINE 8 MG in IV D5W 500 ML IV PRN (23:04)
--- NOTE | 2019-05-12 23:30 | NUR ---
SPRAY APPLICATOR NOTE STARTED LEVO FOR PT. SBP 80'S. WILL MONITOR.
[2019-05-13] VITALS (71 sets, daily range): BP systolic 87–139; BP diastolic 41–97
[2019-05-13] MEDS ORDERED: CEFTAZIDIME 1 G VIAL ONE (00:19)
[2019-05-13] MEDS ORDERED: CEFTAZIDIME 2 G in IV D5W 100 ML IV ONE (01:00)
[2019-05-13] MEDS: PROPOFOL 100 ML IV PRN (02:45)
[2019-05-13 04:22] LABS: BASOPHILS % (AUTO) 0.1 % (0.0-2.0); EOSINOPHILS % (AUTO) 0.2 % (0.0-6.0); HEMATOCRIT 32 % (33-45); LYMPHOCYTES % (AUTO) 7.5 % (20.0-44.0); MEAN CORPUSCULAR HGB CONC 31 g/dl (31.0-36.0); MEAN CORPUSCULAR VOLUME 84 fL (82-100); MONOCYTES # (AUTO) 0.4 /CMM (0.1-1.30); MONOCYTES % (AUTO) 3.3 % (2.0-12.0); NEUTROPHILS # (AUTO) 11.6 /CMM (1.8-8.9); NEUTROPHILS % (AUTO) 88.9 % (43.0-81.0); PLATELET COUNT (AUTO) 344 /CMM (150-450); RED BLOOD CELL COUNT(AUTO) 3.87 MIL/uL (4.0-5.2); WHITE BLOOD COUNT (AUTO) 13.1 K/uL (4.3-11.0)
[2019-05-13 04:35] LABS: CALCIUM, SERUM 7.8 mg/dL (8.5-10.1); CARBON DIOXIDE 20 mmol/L (21-32); CHLORIDE 113 mmol/L (98-107); CREATININE 0.5 mg/dL (0.6-1.3); GLUCOSE 119 mg/dL (74-106); POTASSIUM 2.9 mmol/L (3.5-5.1); SODIUM SERUM 145 mmol/L (136-145); UREA NITROGEN, BLOOD 17 mg/dL (7-18)
[2019-05-13] MEDS: FLUDROCORTISONE 0.1 MG TABLET GT SCH ×3 (06:49→17:01)
--- NOTE | 2019-05-13 07:00 | NUR ---
RN NOTE RECEIVED PT ON BED INTUBATED AND SEDATED. ETT IN PLACE AND VENT SETTINGS TOLERATING WELL. O2 SAT WNL, BREATHING UNLABORED. HOB ELEVATED AND ON ASPIRATION PRECAUTIONS. TELE SR- SB HR IN 60'S AT THIS TIME, XAVIER PICC CLEAN AND PATENT WITH DIPRIVAN AND IV FLUIDS INFUSING. GT FEEDING INFUSING WITHOUT RESIDUALS NOTED. INTERIANO CATHETER IN PLACE AND DRAINING BY GRAVITY. BILATERAL SOFT WRIST RESTRAINTS IN PLACE FOR PT SAFETY WITH PALPABLE BILATERAL PULSES AND NO DISCOLORATION NOTED. SR UP x3, CALL LIGHT WITHIN EASY REACH, WILL CONTINUE TO MONITOR.
--- NOTE | 2019-05-13 07:05 | NUR ---
PHOTONICS ENGINEERING TECHNOLOGIST NOTE PT REMAINED STABLE DURING SHIFT. NO ACUTE DISTRESS NOTED. VENT SETTINGS WELL TOLERATED. SUCTIONED NEEDED. REPOSITIONED Q2H. KEPT CLEAN AND DRY. ALL NEEDS ATTENDED TO PROMPTLY. WILL ENDORSE TO NEXT SHIFT FOR CONTINUITY OF CARE.
[2019-05-13] MEDS ORDERED: POTASSIUM CL. PREMIX PERIPHER. 50 ML IV SCH (07:30)
[2019-05-13 08:03] LABS: MAGNESIUM 1.9 mg/dL (1.8-2.4); PHOSPHORUS 2.1 mg/dL (2.5-4.9)
[2019-05-13 08:16] LABS: ABG OXYGEN SATURATION 96.4 % (92.0-98.5); ABG PCO2 29.5 mmHg (35.0-45.0); ABG PH 7.415 (7.350-7.450); ABG PO2 98.3 mmHg (75.0-100.0); COHb 0.3 % (0.5-1.5); MetHb 1.2 % (0.0-1.5); SITE, ABG Right Radial
[2019-05-13] MEDS: ASCORBIC ACID 500 MG TABLET PO SCH (08:20)
[2019-05-13] MEDS: FERROUS SULFATE UDC 300 MG/5 ML UDC GT SCH ×2 (08:20→16:29)
[2019-05-13] MEDS: DOCUSATE SODIUM 100 MG CAPSULE PO SCH (08:21)
[2019-05-13] MEDS: PANTOPRAZOLE 40 MG/PACK PACK GT SCH (08:21)
[2019-05-13] MEDS: POTASSIUM CHLORIDE 20 MEQ POWDER PACKET GT SCH ×3 (08:21→10:02)
[2019-05-13] MEDS: ZINC SULFATE 220 MG CAPSULE GT SCH (08:21)
[2019-05-13] MEDS: HYDROCORTISONE SOD SUCCINATE 100 MG/2 ML VIAL IV SCH ×3 (08:21→16:29)
[2019-05-13] MEDS: MULTIVIT W/MINERALS 1 TAB TABLET GT SCH (08:21)
[2019-05-13] MEDS: CLOTRIMAZOLE 1% 15 GM TUBE TP SCH ×2 (08:22→16:30)
[2019-05-13] MEDS ORDERED: NEUTRA PHOS 1 POWD.PACKET PO ONE (09:00)
--- NOTE | 2019-05-13 09:13 | NUR ---
RT Pt received orally intubated on mechanical ventilation with noted settings. Pt responds to stimuli when suctioned. Vent is plugged into red outlet. No SOB or respiratory distress noted. Addendum: 05/13/19 at 0925 by RICO TRAORE RT Amended: Links added.
--- NOTE | 2019-05-13 10:00 | NUR ---
RN NOTES SANKET WARE NOTIFED REGARDING ORTH CONSULT FOR THE R LEG .
[2019-05-13] MEDS ORDERED: DC PROPOFOL WHEN EXTUBATED XX PRN (11:00)
--- NOTE | 2019-05-13 11:38 | NUR ---
WOUND CARE CONSULT WOUND CARE RECEIVED 2ND CONSULT FOR RISK OF SKIN BREAK DOWN ON THE R LEG HARD CAST. WOUND CARE CALLED DNP TO DISCUSS, WOUND CARE HAS CONTINUED TO RECOMMENDED ORTHO FOLLOW UP. DNP FOR TODAY WILL NOTIFY ORTHO FOR FOLLOW UP. ALL DISCUSSED WITH PRIMARY RN FOR TODAY.
[2019-05-13] MEDS: CEFTAZIDIME 2 G in IV D5W 100 ML IV SCH (12:51)
[2019-05-13] MEDS: SOD FERRIC GLUC 125 MG in IV NS 0.9% 100 ML IV SCH (13:49)
--- NOTE | 2019-05-13 14:00 | NUR ---
RN NOTES CALL RECEIVED FROM JEANA JEAN . ORDER RECEIVED FOR X-RAY OF R LEG PER PA ORDER , CONTINUE TO MONITOR .
[2019-05-13] MEDS: SCOPOLAMINE HBR 1 EA PATCH.TD72 TD SCH (14:18)
--- NOTE | 2019-05-13 15:20 | NUR ---
RN NOTES PT EXTUBATED PER DR MUNGUIA ORDER . PT IS DNR/DNI, CONTINUE TO MONITOR .
[2019-05-13] MEDS ORDERED: LORAZEPAM INJ 2 MG/ML VIAL IV PRN (15:30)
[2019-05-13] MEDS: IV NS 0.9% 1,000 ML IV PRN (15:38)
[2019-05-13] MEDS: JEVITY 1.2 CAL 1,000 ML BOTTLE GT PRN ×2 (15:40→22:35)
--- NOTE | 2019-05-13 16:00 | NUR ---
RN NOTES MORPHINE AND ATIVAN NOT GIVEN PER DR MUNGUIA ORDER. 3 MG MORPHINE AND 1MG ATIVAN WASTED BY TWO RNS (DAVID WALKER/RN)
--- NOTE | 2019-05-13 18:00 | NUR ---
RN NOTES VSS STABLE AFTER EXTUBATION , FREQUENT ORAL SUCTIONING DONE, SANKET SHIP MATE NOITFED .
--- NOTE | 2019-05-13 18:29 | NUR ---
RN NOTES REPORT GIVEN TO WILLIAM CONTRERAS FOR CONTINUITY OF CARE .
--- NOTE | 2019-05-13 18:32 | NUR ---
RN NOTES NO BELONGINGS NOTED
--- NOTE | 2019-05-13 18:32 | NUR ---
RN NOTES PT TRANSFERRED TO ROOM #200 , MED-SURG STATUS , VSS STABLE AT THIS TIME .
--- NOTE | 2019-05-13 18:45 | NUR ---
MS RN NOTES PATIENT TRANSFER FROM ICU REPORT GIVEN BY BECCA CONTRERAS. PATIENT NON VERBAL, MOUTH BREATHER. ON O2 AT 6LPM VIA NC SATURATING 98-99%. VITAL SIGNS STABLE. ON TUBE FEEDING JEVITY 1.2 @ 40CC/ HR. IV ACCESS PATENT AND INTACT WITH NS @ 50CC/HR. INTERIANO CATHETER PATENT AND INTACT WITH CLEAR YELLOW URINE NOTED. WITH RIGHT LEG IMMOBILIZER IN PLACE. SAFETY MEASURES IN PLACE. HEAD OF BED ELEVATED. WILL ENDORSE TO NIGHT NURSE FOR CONTINUITY OF CARE.
--- NOTE | 2019-05-13 20:00 | NUR ---
MS RN NOTES RECEIVED PATIENT AWAKE, NON VERBAL IN BED WITH NO DISTRESS NOTED. CALL LIGHT WITHIN REACH. XAVIER PICC INTACT AND PATENT. FC INTACT AND PATENT, DRAINING CLEAR YELLOW URINE. GTF ON AT 40ML/HR AND TOLERATING WELL. NO FACIAL GRIMACING OR GROANING TO INDICATE PAIN OR DISCOMFORT. BED IN LOW LOCK SETTING. ROOM FREE OF CLUTTER AND BELONGINGS KEPT NEAR BEDSIDE. WILL CONTINUE TO MONITOR.
[2019-05-13] MEDS: ENOXAPARIN SODIUM 40 MG/0.4 ML DISP.SYRIN SQ SCH (21:48)
[2019-05-13] MEDS: MORPHINE SULFATE INJ 4 MG/ML DISP.SYRIN IV PRN (22:49)
[2019-05-14] MEDS: FLUDROCORTISONE 0.1 MG TABLET GT SCH ×2 (00:29→06:02)
[2019-05-14] MEDS: CEFTAZIDIME 2 G in IV D5W 100 ML IV SCH ×3 (00:29→23:12)
--- NOTE | 2019-05-14 06:23 | NUR ---
MS RN NOTES PATIENT AWAKE IN BED WITH NO DISTRESS NOTED. CALL LIGHT WITHIN REACH. ALL DUE MEDS GIVEN ORDERED WITH NO ASE NOTED. GTF ON AT 40ML/HR AND TOLERATING WELL. XAVIER PICC INTACT AND PATENT. FC INTACT/PATENT AND DRAINED 1600ML CLEAR YELLOW URINE. NO FURTHER FACIAL GRIMACING OR GROANING TO INDICATE PAIN OR DISCOMFORT. BED IN LOW LOCK SETTING. ROOM FREE OF CLUTTER AND BELONGINGS KEPT NEAR BEDSIDE. WILL ENDORSE TO ONCOMING SHIFT.
[2019-05-14 07:11] LABS: BASOPHILS % (AUTO) 0.1 % (0.0-2.0); EOSINOPHILS % (AUTO) 0.7 % (0.0-6.0); HEMATOCRIT 30 % (33-45); HEMOGLOBIN 9.6 g/dL (11.5-14.8); LYMPHOCYTES # (AUTO) 1.5 /CMM (0.8-4.8); LYMPHOCYTES % (AUTO) 10.4 % (20.0-44.0); MEAN CORPUSCULAR HGB CONC 32 g/dl (31.0-36.0); MEAN CORPUSCULAR VOLUME 82 fL (82-100); MONOCYTES # (AUTO) 0.5 /CMM (0.1-1.30); MONOCYTES % (AUTO) 3.9 % (2.0-12.0); NEUTROPHILS # (AUTO) 11.8 /CMM (1.8-8.9); NEUTROPHILS % (AUTO) 84.9 % (43.0-81.0); PLATELET COUNT (AUTO) 299 /CMM (150-450); RED BLOOD CELL COUNT(AUTO) 3.65 MIL/uL (4.0-5.2); WHITE BLOOD COUNT (AUTO) 13.9 K/uL (4.3-11.0)
[2019-05-14 07:38] LABS: CALCIUM, SERUM 7.6 mg/dL (8.5-10.1); CARBON DIOXIDE 25 mmol/L (21-32); CHLORIDE 108 mmol/L (98-107); CREATININE 0.4 mg/dL (0.6-1.3); GLUCOSE 95 mg/dL (74-106); MAGNESIUM 1.6 mg/dL (1.8-2.4); PHOSPHORUS 1.7 mg/dL (2.5-4.9); SODIUM SERUM 144 mmol/L (136-145); UREA NITROGEN, BLOOD 9 mg/dL (7-18)
[2019-05-14 07:58] LABS: POTASSIUM 2.2 mmol/L (3.5-5.1)
[2019-05-14 08:00] VITALS: BP 133/53
--- NOTE | 2019-05-14 08:00 | NUR ---
MS/RN - OPENING NOTES RECEIVED PT IN BED AWAKE IN BED WITH NO CARDIAC/DISTRESS NOTED. CURRENT CODE STATUS IS DNR/DNI. CALL LIGHT WITHIN REACH. ALL DUE MEDS GIVEN ORDERED WITH NO ASE NOTED. GTF ON AT 40ML/HR AND TOLERATING WELL. XAVIER PICC INTACT AND PATENT. FC INTACT/PATENT AND DRAINED 1600ML CLEAR YELLOW URINE. NO FURTHER FACIAL GRIMACING OR GROANING TO INDICATE PAIN OR DISCOMFORT. RELAYED LAB RESULTS TO DR. RUBIN, ELECTROLYTES REPLACEMENT ORDERS GIVEN. BED IN LOW LOCK SETTING. ROOM FREE OF CLUTTER AND BELONGINGS KEPT NEAR BEDSIDE. WILL CONTINUE WITH CURRENT MEDICAL MANAGEMENT.
[2019-05-14] MEDS: PANTOPRAZOLE 40 MG/PACK PACK GT SCH (08:12)
[2019-05-14] MEDS: MULTIVIT W/MINERALS 1 TAB TABLET GT SCH (08:12)
[2019-05-14] MEDS: ASCORBIC ACID 500 MG TABLET PO SCH (08:12)
[2019-05-14] MEDS: FERROUS SULFATE UDC 300 MG/5 ML UDC GT SCH ×2 (08:12→17:03)
[2019-05-14] MEDS: DOCUSATE SODIUM 100 MG CAPSULE PO SCH (08:12)
[2019-05-14] MEDS: ZINC SULFATE 220 MG CAPSULE GT SCH (08:12)
[2019-05-14] MEDS ORDERED: NEUTRA PHOS 1 POWD.PACKET PO ONE (08:30)
[2019-05-14] MEDS ORDERED: POTASSIUM CHLORIDE 20 MEQ POWDER PACKET GT ONE (08:30)
[2019-05-14] MEDS: HYDROCORTISONE SOD SUCCINATE 100 MG/2 ML VIAL IV SCH ×3 (08:36→17:03)
[2019-05-14] MEDS: POTASSIUM CL. PREMIX PERIPHER. 50 ML IV SCH ×6 (09:05→14:57)
[2019-05-14] MEDS: CLOTRIMAZOLE 1% 15 GM TUBE TP SCH ×2 (09:07→17:03)
[2019-05-14 12:32] LABS: CHLORIDE,URINE RANDOM 189 mmol/L (55-125); POTASSIUM RNDM,URINE 30 mmol/L (25-125); URINE SODIUM, RANDOM 135 mmol/l (40-220)
[2019-05-14 12:35] LABS: OSMOLALITY,URINE 466 mOS/kg (340-1090)
[2019-05-14] MEDS: Magnesium 1GM/D5W 100ML PREMIX 100 ML IV SCH ×2 (13:21→14:26)
[2019-05-14 16:00] VITALS: BP 126/85
[2019-05-14] MEDS: SOD FERRIC GLUC 125 MG in IV NS 0.9% 100 ML IV SCH (16:06)
[2019-05-14] MEDS: MORPHINE SULFATE INJ 4 MG/ML DISP.SYRIN IV PRN (17:07)
--- NOTE | 2019-05-14 17:41 | NUR ---
MS RN CLOSING NOTES PT IN BED, AWAKE AND ALERT. ON VERBAL. PT WAS RESTLESS AND MOANING [id number]. MORPHINE 3MG IV PUSH GIVEN AND WAS EFFECTIVE. PT SEEMED TO BE MORE COMFORTABLE AFTER ADMINISTRATION OF MORPHINE. NO CARDIAC OR RESPIRATORY DISTRESS NOTED AT THIS TIME. BREATHING IS EVEN AND UNLABORED. X2 BM NOTED TODAY. BM WAS SOFT. ABD NON DISTENDED. PICC LINE NOTED ON R ARM. NO SWELLING OR S/S OF INFECTION NOTED. INTERIANO CATH DRAINING WITH CLEAR YELLOW URINE. GT SITE INTACT. NO GASTRIC RESIDUAL NOTED. GT FEEDING JEVITY RUNNING AT 60CC/HR. TOLERATING WELL. IV FLUID RUNNING NS @ 50CC/HR. PT COMPLETED 5 BAGS OF KCL THIS SHIFT WELL 2 BAGS OF MAGNESIUM. TOLERATED ALL ELECTROLYTE REPLACEMENTS WELL. WILL ENDORSE TO ONCOMING SHIFT.
[2019-05-14] MEDS: IV NS 0.9% 1,000 ML IV PRN (18:13)
--- NOTE | 2019-05-14 18:50 | NUR ---
REDNESS ON BILATERAL CHEEKS PT NOTED WITH REDNESS ON BILATERAL CHEEKS. NO RESPIRATORY DISTRESS NOTED. BREATHING EVEN AND UNLABORED T- 98.6, BP- 113/82, P- 87, RR-18 O2 SAT AT 98% WITH 3L O2 VIA NC. CALLED AND NOTIFIED DR. RUBIN. OBTAINED ORDERS FOR BENADRYL 25MG IVPUSH Q6HRS PRN. ADMINISTERED BENADRYL PRN ORDERED. .
[2019-05-14] MEDS ORDERED: diphenhydrAMINE HCL 50 MG/ML VIAL IV PRN (19:00)
--- NOTE | 2019-05-14 19:00 | NUR ---
MS RN NOTE RECEIVED PT IN STABLE CONDITION, IN BED, NO SIGNS OF SOB OR DISTRESS, NO INDICATION OF PAIN OR N/V. NOTED WITH GTUBE IN PLACE AND INTACT WITH FEEDING INFUSING, MINIMAL RESIDUAL. INTERIANO CATH IN PLACE WITH ADEQUATE YELLOW URINE DRAINING. R ARM PICC LINE NOTED DRY AND INTACT WITH IVF INFUSING, TOLERATING WELL. ALL CURRENT NEEDS ATTENDED TO. BED LOW, LOCKED, UPPER RAILS UP AND CALL LIGHT WITHIN REACH. WILL CONT. TO MONITOR.
[2019-05-14 19:13] LABS: CALCIUM, SERUM 7.8 mg/dL (8.5-10.1); CARBON DIOXIDE 27 mmol/L (21-32); CHLORIDE 105 mmol/L (98-107); CREATININE 0.5 mg/dL (0.6-1.3); GLUCOSE 139 mg/dL (74-106); POTASSIUM 3.1 mmol/L (3.5-5.1); SODIUM SERUM 142 mmol/L (136-145); UREA NITROGEN, BLOOD 8 mg/dL (7-18)
[2019-05-14] MEDS: ENOXAPARIN SODIUM 40 MG/0.4 ML DISP.SYRIN SQ SCH (21:12)
[2019-05-14 21:15] VITALS: BP 118/74
[2019-05-14] MEDS: JEVITY 1.2 CAL 1,000 ML BOTTLE GT PRN (23:52)
--- NOTE | 2019-05-15 06:09 | NUR ---
MS RN NOTE PT REMAINS IN STABLE CONDITION, IN BED, NO SIGNS OF SOB OR DISTRESS, NO INDICATION OF PAIN OR N/V. NOTED WITH GTUBE IN PLACE AND INTACT WITH FEEDING INFUSING, MINIMAL RESIDUAL. INTERIANO CATH IN PLACE WITH ADEQUATE YELLOW URINE DRAINING. R ARM PICC LINE NOTED DRY AND INTACT WITH IVF INFUSING, TOLERATING WELL. ALL CURRENT NEEDS ATTENDED TO. BED LOW, LOCKED, UPPER RAILS UP, PT REPOSITIONED PER PROTOCOL AND CALL LIGHT WITHIN REACH. WILL CONT. TO MONITOR AND ENDORSE TO NEXT SHIFT FOR BLACK.
[2019-05-15 06:34] LABS: CALCIUM, SERUM 7.5 mg/dL (8.5-10.1); CARBON DIOXIDE 28 mmol/L (21-32); CHLORIDE 107 mmol/L (98-107); CREATININE 0.4 mg/dL (0.6-1.3); GLUCOSE 125 mg/dL (74-106); MAGNESIUM 1.9 mg/dL (1.8-2.4); PHOSPHORUS 1.5 mg/dL (2.5-4.9); SODIUM SERUM 144 mmol/L (136-145); UREA NITROGEN, BLOOD 10 mg/dL (7-18)
[2019-05-15 06:37] LABS: POTASSIUM 2.6 mmol/L (3.5-5.1)
--- NOTE | 2019-05-15 06:37 | NUR ---
MS RN NOTE CRITICAL LAB RESULT OF K 2.6 FROM LAB. [place] MADE AWARE, NEW ORDER FOR K 60 MEQ VIA [facility]. NEW ORDER CARRIED OUT.
[2019-05-15] MEDS ORDERED: POTASSIUM CHLORIDE 20 MEQ POWDER PACKET GT SCH (07:00)
[2019-05-15] MEDS ORDERED: POTASSIUM CHLORIDE 20 MEQ POWDER PACKET GT ONE (07:56)
--- NOTE | 2019-05-15 08:00 | NUR ---
MS RN OPENING NOTES RECEIVED PT IN BED AWAKE IN BED WITH NO CARDIAC/DISTRESS NOTED. BREATHING EVEN AND UNLABORED. PT IS NON VERBAL. CURRENT CODE STATUS IS DNR/DNI. CALL LIGHT WITHIN REACH. KCL 60MEQ GIVEN REPLACEMENT. GTF JEVITY RUNNING AT AT 60ML/HR AND TOLERATING WELL. GT SITE PATENT AND INTACT, NO GASTRIC RESIDUAL NOTED. PICC LINE NOTED ON R UPPER ARM. INTACT AND PATENT NO SWELLING OR S/S IF INFECTION NOTED. INETRIANO CATHETER PATENT, DRAINING WITH CLEAR, YELLOW URINE. NO S/S OF PAIN OR DISCOMFORT. PT APPEARS TO BE COMFORTABLE. REPLACEMENT ORDERS GIVEN. BED IN LOW LOCK SETTING. ROOM FREE OF CLUTTER AND BELONGINGS KEPT NEAR BEDSIDE. WILL CONTINUE WITH CURRENT MEDICAL MANAGEMENT.
[2019-05-15] MEDS ORDERED: POTASSIUM PHOSPHATE MM 15 MMOL in IV D5W 250 ML IV SCH (08:30)
[2019-05-15] MEDS: ASCORBIC ACID 500 MG TABLET PO SCH (08:39)
[2019-05-15] MEDS: HYDROCORTISONE SOD SUCCINATE 100 MG/2 ML VIAL IV SCH ×2 (08:39→17:22)
[2019-05-15] MEDS: FERROUS SULFATE UDC 300 MG/5 ML UDC GT SCH ×2 (08:40→17:22)
[2019-05-15] MEDS: ZINC SULFATE 220 MG CAPSULE GT SCH (08:40)
[2019-05-15] MEDS: DOCUSATE SODIUM 100 MG CAPSULE PO SCH (08:40)
[2019-05-15] MEDS: MULTIVIT W/MINERALS 1 TAB TABLET GT SCH (08:40)
[2019-05-15] MEDS: PANTOPRAZOLE 40 MG/PACK PACK GT SCH (08:40)
[2019-05-15] MEDS: CLOTRIMAZOLE 1% 15 GM TUBE TP SCH ×2 (08:41→17:22)
[2019-05-15] MEDS: CEFTAZIDIME 2 G in IV D5W 100 ML IV SCH ×2 (12:28→23:44)
[2019-05-15] MEDS: IV NS 0.9% 1,000 ML IV PRN (12:33)
[2019-05-15] MEDS: SOD FERRIC GLUC 125 MG in IV NS 0.9% 100 ML IV SCH (13:13)
[2019-05-15 15:06] VITALS: BP 126/60
[2019-05-15 15:30] LABS: CALCIUM, SERUM 7.5 mg/dL (8.5-10.1); CARBON DIOXIDE 31 mmol/L (21-32); CHLORIDE 105 mmol/L (98-107); CREATININE 0.4 mg/dL (0.6-1.3); GLUCOSE 154 mg/dL (74-106); POTASSIUM 3.8 mmol/L (3.5-5.1); SODIUM SERUM 142 mmol/L (136-145); UREA NITROGEN, BLOOD 10 mg/dL (7-18)
--- NOTE | 2019-05-15 18:00 | NUR ---
MS RN CLOSING NOTES RECEIVED PT IN BED AWAKE IN BED WITH NO CARDIAC/DISTRESS NOTED. BREATHING EVEN AND UNLABORED. PT IS NON VERBAL. CURRENT CODE STATUS IS DNR/DNI. CALL LIGHT WITHIN REACH. GTF JEVITY RUNNING AT AT 60ML/HR AND TOLERATING WELL. GT SITE PATENT AND INTACT, NO GASTRIC RESIDUAL NOTED. PICC LINE NOTED ON R UPPER ARM. INTACT AND PATENT NO SWELLING OR S/S IF INFECTION NOTED. INTERIANO CATHETER PATENT, DRAINING WITH CLEAR, YELLOW URINE. NO S/S OF PAIN OR DISCOMFORT. PT APPEARS TO BE COMFORTABLE. CURRENT K LEVELS NOW AT 3.8. BED IN LOW LOCK SETTING. ROOM FREE OF CLUTTER AND BELONGINGS KEPT NEAR BEDSIDE. WILL CONTINUE WITH CURRENT MEDICAL MANAGEMENT
[2019-05-15 19:30] VITALS: BP 133/76
--- NOTE | 2019-05-15 19:48 | NUR ---
MS RN NOTES PATIENT IN BED, AWAKE, NONVERBAL. BREATHING EVEN AND UNLABORED ON ROOM AIR. PATIENT SHOWS NO SIGNS OF ACUTE RESPIRATORY DISTRESS NO ACUTE PAIN. INTERIANO CATHETER IS CLEAN DRY AND INTACT. FLOWING CLEAR YELLOW URINE. PATIENT ON GTUBE FEEDING JEVITY 60ML/HR X 24 HRS GTUBE SITE IS CLEAN DRY AND INTACT, FLUSHING WELL. XAVIER PICC 3 LUMEN IS CLEAN DRY AND INTACT. SHOWS NO SIGN OF INFILTRATION, NO REDNESS. SAFETY PRECAUTIONS IN PLACE. BED IN LOWEST POSITION, LOCKED, AND CALL LIGHT KEPT WITHIN REACH. WILL CONTINUE TO MONITOR.
[2019-05-15 20:00] VITALS: BP 133/76
[2019-05-15] MEDS: ENOXAPARIN SODIUM 40 MG/0.4 ML DISP.SYRIN SQ SCH (21:04)
--- NOTE | 2019-05-16 06:32 | NUR ---
MS RN NOTES PATIENT IN BED, ASLEEP, NONVERBAL. BREATHING EVEN AND UNLABORED ON ROOM AIR. PATIENT SHOWS NO SIGNS OF ACUTE RESPIRATORY DISTRESS NO ACUTE PAIN. INTERIANO CATHETER IS CLEAN DRY AND INTACT. FLOWING CLEAR YELLOW URINE. PATIENT ON GTUBE FEEDING JEVITY 60ML/HR X 24 HRS, GTUBE SITE IS CLEAN DRY AND INTACT, FLUSHING WELL, 0 RESIDUAL. XAVIER PICC 3 LUMEN IS CLEAN DRY AND INTACT RUNNING NS AT 50ML/HR. SHOWS NO SIGN OF INFILTRATION, NO REDNESS. ALL DUE MEDICATIONS GIVEN. SAFETY PRECAUTIONS IN PLACE. BED IN LOWEST POSITION, LOCKED, AND CALL LIGHT KEPT WITHIN REACH. WILL ENDORSE TO ONCOMING NURSE
--- NOTE | 2019-05-16 07:52 | NUR ---
MS RN NOTES PATIENT RECEIVED RESTING INSIDE ROOM. ASLEEP, NON-VERBAL. NO ACUTE DISTRESS. NO FACIAL GRIMACE NOTED. INTERIANO IN PLACE WITH YELLOW URINE OUTPUT NOTED ON COLLECTING BAG. ONGOING GTF AND PATIENT TOLERATING WELL. MAINTAINED ASPIRATION PRECAUTIONS. SAFETY PRECAUTIONS IN PLACE. WILL CONTINUE TO MONITOR. BED LOCKED AND IN LOW POSITION. SIDE RAILS UP X 3. CALL LIGHT WITHIN EASY REACH
[2019-05-16 08:00] VITALS: BP 137/71
[2019-05-16] MEDS: ZINC SULFATE 220 MG CAPSULE GT SCH (09:12)
[2019-05-16] MEDS: CLOTRIMAZOLE 1% 15 GM TUBE TP SCH ×2 (09:12→17:00)
[2019-05-16] MEDS: DOCUSATE SODIUM 100 MG CAPSULE PO SCH (09:12)
[2019-05-16] MEDS: MULTIVIT W/MINERALS 1 TAB TABLET GT SCH (09:12)
[2019-05-16] MEDS: PANTOPRAZOLE 40 MG/PACK PACK GT SCH (09:12)
[2019-05-16] MEDS: ASCORBIC ACID 500 MG TABLET PO SCH (09:12)
[2019-05-16] MEDS: HYDROCORTISONE SOD SUCCINATE 100 MG/2 ML VIAL IV SCH (09:12)
[2019-05-16] MEDS: FERROUS SULFATE UDC 300 MG/5 ML UDC GT SCH ×2 (09:12→17:00)
[2019-05-16] MEDS: IV NS 0.9% 1,000 ML IV PRN (11:30)
[2019-05-16] MEDS: CEFTAZIDIME 2 G in IV D5W 100 ML IV SCH (11:30)
[2019-05-16 12:14] LABS: ALANINE AMINOTRANSFERASE 19 U/L (12-78); ALBUMIN 1.7 g/dL (3.4-5.0); ALKALINE PHOSPHATASE 131 U/L (46-116); ASPARTATE AMINOTRANSFERASE 41 U/L (15-37); BILIRUBIN,TOTAL 0.3 mg/dL (0.2-1.0); CALCIUM, SERUM 7.8 mg/dL (8.5-10.1); CARBON DIOXIDE 29 mmol/L (21-32); CHLORIDE 104 mmol/L (98-107); CREATININE 0.4 mg/dL (0.6-1.3); GLUCOSE 114 mg/dL (74-106); MAGNESIUM 1.9 mg/dL (1.8-2.4); PHOSPHORUS 1.8 mg/dL (2.5-4.9); POTASSIUM 3.5 mmol/L (3.5-5.1); SODIUM SERUM 143 mmol/L (136-145); TOTAL PROTEIN, SERUM 5.1 g/dL (6.4-8.2); UREA NITROGEN, BLOOD 11 mg/dL (7-18)
[2019-05-16] MEDS ORDERED: NEUTRA PHOS 1 POWD.PACKET GT ONE (12:30)
[2019-05-16] MEDS ORDERED: HYDROCORTISONE SOD SUCCINATE 100 MG/2 ML VIAL IV SCH (12:30)
[2019-05-16 13:43] LABS: BASOPHILS % (AUTO) 0.3 % (0.0-2.0); EOSINOPHILS % (AUTO) 0.6 % (0.0-6.0); HEMATOCRIT 35 % (33-45); HEMOGLOBIN 11.1 g/dL (11.5-14.8); LYMPHOCYTES # (AUTO) 1.7 /CMM (0.8-4.8); LYMPHOCYTES % (AUTO) 10.1 % (20.0-44.0); MEAN CORPUSCULAR HGB CONC 32 g/dl (31.0-36.0); MEAN CORPUSCULAR VOLUME 84 fL (82-100); MONOCYTES # (AUTO) 0.8 /CMM (0.1-1.30); MONOCYTES % (AUTO) 4.7 % (2.0-12.0); NEUTROPHILS # (AUTO) 14.2 /CMM (1.8-8.9); NEUTROPHILS % (AUTO) 84.3 % (43.0-81.0); PLATELET COUNT (AUTO) 299 /CMM (150-450); RED BLOOD CELL COUNT(AUTO) 4.18 MIL/uL (4.0-5.2); WHITE BLOOD COUNT (AUTO) 16.9 K/uL (4.3-11.0)
[2019-05-16] MEDS: JEVITY 1.2 CAL 1,000 ML BOTTLE GT PRN (14:09)
[2019-05-16] MEDS: SCOPOLAMINE HBR 1 EA PATCH.TD72 TD SCH (15:15)
[2019-05-16 15:48] LABS: LYMPHOCYTES % (MANUAL) 9 % (16-48); MONOCYTES % (MANUAL) 2 % (0-11.0); NEUTROPHILS % (MANUAL) 89 (42-76)
[2019-05-16 16:00] VITALS: BP 123/70
--- NOTE | 2019-05-16 17:59 | NUR ---
MS RN NOTES PATIENT RESTING INSIDE ROOM. REMAINS AWAKE, NON-VERBAL. NO ACUTE DISTRESS. NO FACIAL GRIMACE NOTED. ONGOING GTF AND TOLERATING WELL. IVF INFUSING ORDERED. MAINTAINED ASPIRATION PRECAUTIONS. INTERIANO CATH IN PLACE WITH YELLOW URINE OUTPUT NOTED IN COLLECTING BAG. PATIENT KEPT CLEAN, DRY AND COMFORTABLE. WILL ENDORSE TO INCOMING SHIFT FOR BLACK. BED LOCKED AND IN LOW POSITION. BILATERAL UPPER SIDE RAILS UP AND LOCKED. CALL LIGHT WITHIN EASY REACH
--- NOTE | 2019-05-16 19:27 | NUR ---
MS RN OPENING NOTE RECEIVED PATIENT IN BED. PATIENT IS AWAKE BUT NONVERBAL. ON OXYGEN 3L/MIN VIA NASAL CANNULA. REGISTRATIONS ARE EVEN AND UNLABORED. NO S/S SOB NOTED. IN NO APPARENT DISTRESS. IV ACCESS IN XAVIER PICC LINE RUNNING NS@60ML/HR. INTERIANO IS PRESENT, DRAINING TO GRAVITY, URINE IS YELLOW AND CLEAR. GTUBE IS PRESENT, ASPIRATED NO RESIDUAL, CHECKED PLACEMENT, FLUSHED WITH 30ML OF WATER WITH NO RESISTANCE, CURRENT RUNNING JEVITY 1.2 @60ML/HR. BED IS LOW AND LOCKED, HOB ELEVATED IN SEMI FOWLERS, SIDE RAILS UP X2, BED ALARM ON. CALL LIGHT WITHIN REACH. WILL CONTINUE TO MONITOR.
[2019-05-16 20:00] VITALS: BP 143/73
[2019-05-16] MEDS: ENOXAPARIN SODIUM 40 MG/0.4 ML DISP.SYRIN SQ SCH (20:09)
[2019-05-17] MEDS: CEFTAZIDIME 2 G in IV D5W 100 ML IV SCH ×3 (00:28→23:27)
[2019-05-17] MEDS: JEVITY 1.2 CAL 1,000 ML BOTTLE GT PRN ×2 (06:22→23:29)
[2019-05-17 06:39] LABS: CALCIUM, SERUM 7.6 mg/dL (8.5-10.1); CARBON DIOXIDE 32 mmol/L (21-32); CHLORIDE 102 mmol/L (98-107); CREATININE 0.4 mg/dL (0.6-1.3); GLUCOSE 115 mg/dL (74-106); PHOSPHORUS 1.8 mg/dL (2.5-4.9); POTASSIUM 3.3 mmol/L (3.5-5.1); SODIUM SERUM 140 mmol/L (136-145); UREA NITROGEN, BLOOD 14 mg/dL (7-18)
[2019-05-17] MEDS: IV NS 0.9% 1,000 ML IV PRN (06:56)
--- NOTE | 2019-05-17 07:09 | NUR ---
MS RN CLOSING NOTE PATIENT IN BED. PATIENT IS AWAKE, NONVERBAL. REMAINS ON OXYGEN 3L/MIN VIA NASAL CANNULA. REGISTRATIONS ARE EVEN AND UNLABORED. NO SOB NOTED. NO DISTRESS NOTED. IV ACCESS MAINTAINED IN XAVIER PICC LINE RUNNING NS@50ML/HR. INTERIANO IS MAINTAINED, DRAINING TO GRAVITY, URINE IS YELLOW AND CLEAR, OUTPUT 1000. GTUBE IS MAINTAINED RUNNING JEVITY 1.2 @60ML/HR. BED IS LOW AND LOCKED, HOB ELEVATED IN SEMI FOWLERS, SIDE RAILS UP X2, BED ALARM ON. CALL LIGHT WITHIN REACH. WILL ENDORSE TO NEXT SHIFT
--- NOTE | 2019-05-17 07:39 | NUR ---
MS RN NOTES PATIENT RECEIVED RESTING INSIDE ROOM. EYES OPEN, NON-VERBAL. NO ACUTE DISTRESS. NO FACIAL GRIMACE NOTED. ON O2 AT 3L/MIN VIA NC. ONGOING GTF AND PATIENT TOLERATING WELL. MAINTAINED ASPIRATION PRECAUTIONS. INTERIANO CATH IN PLACE WITH CLEAR YELLOW URINE OUTPUT NOTED ON COLLECTING BAG. SAFETY PRECAUTIONS IN PLACE. WILL CONTINUE TO MONITOR. BED LOCKED AND IN LOW POSITION. SIDE RAILS UP X 3. CALL LIGHT WITHIN EASY REACH
[2019-05-17 08:00] VITALS: BP 146/81
[2019-05-17] MEDS ORDERED: HYDROCORTISONE SOD SUCCINATE 100 MG/2 ML VIAL IV SCH (09:00)
[2019-05-17] MEDS: DOCUSATE SODIUM LIQ 100 MG/10 ML UDC GT SCH ×2 (09:00→09:12)
[2019-05-17] MEDS: MULTIVIT W/MINERALS 1 TAB TABLET GT SCH (09:12)
[2019-05-17] MEDS: ZINC SULFATE 220 MG CAPSULE GT SCH (09:12)
[2019-05-17] MEDS: ASCORBIC ACID 500 MG TABLET PO SCH (09:12)
[2019-05-17] MEDS: FERROUS SULFATE UDC 300 MG/5 ML UDC GT SCH ×2 (09:12→17:42)
[2019-05-17] MEDS: CLOTRIMAZOLE 1% 15 GM TUBE TP SCH ×2 (09:12→17:42)
[2019-05-17] MEDS: HYDROCORTISONE SOD SUCCINATE 100 MG/2 ML VIAL IV SCH (09:12)
[2019-05-17] MEDS: PANTOPRAZOLE 40 MG/PACK PACK GT SCH (09:12)
[2019-05-17] MEDS: Potassium Phosphate meq 11 MEQ in IV D5W 100 ML IV SCH ×2 (10:00→13:14)
[2019-05-17 16:00] VITALS: BP 145/76
--- NOTE | 2019-05-17 19:02 | NUR ---
MS RN NOTES PATIENT RESTING INSIDE ROOM. REMAINS AWAKE, EYES OPEN, NON-VERBAL. NO ACUTE DISTRESS. NO FACIAL GRIMACE NOTED. ONGOING GTF AND TOLERATING WELL. IVF INFUSING ORDERED. MAINTAINED ASPIRATION PRECAUTIONS. INTERIANO CATH IN PLACE WITH YELLOW URINE OUTPUT NOTED IN COLLECTING BAG. PATIENT KEPT CLEAN, DRY AND COMFORTABLE. WILL ENDORSE TO INCOMING SHIFT FOR BLACK. BED LOCKED AND IN LOW POSITION. BILATERAL UPPER SIDE RAILS UP AND LOCKED. CALL LIGHT WITHIN EASY REACH
--- NOTE | 2019-05-17 19:24 | NUR ---
MS RN OPENING NOTE RECEIVED PATIENT IN BED AWAKE, NONVERBAL.ON 3LPM VIA NC. GT INFUSING ORDERED. STABLE AND NOT IN DISTRESS. WILL CONTINUE TO MONITOR
[2019-05-17 20:00] VITALS: BP_SYST 144; BP_SYST 146; BP_DIAS 76
[2019-05-17] MEDS: ENOXAPARIN SODIUM 40 MG/0.4 ML DISP.SYRIN SQ SCH (21:46)
[2019-05-18] MEDS: IV NS 0.9% 1,000 ML IV PRN ×2 (04:50→22:06)
--- NOTE | 2019-05-18 06:11 | NUR ---
MS RN PT ASLEEP AND EASILY AWAKEN, NO S/S OF DISTRESS, STABLE, ON 3LPM VIA NC O2 SAT 96%, GOOD SKIN CARE AT ALL TIMES. REPOSITION EVERY 2 HOURS. GT FEEDING INFUSING ORDERED TOLERATED WELL. AM CARE RENDERED. NEEDS ATTENDED AND ANTICIPATED, KEPT CLEAN, DRY AT ALL TIMES. SAFETY MEASURES AT ALL TIMES. WILL ENDORSE TO NEXT SHIFT.
--- NOTE | 2019-05-18 07:31 | NUR ---
RN OPENING NOTES Received patient on 3l nasal cannula, no sob noted, patient awake and opens eyes but remains non verbal. Schneider remains in place. Jevity 60 ml per hour, XAVIER piccline with NS @ 60 ml per hour. Bed at the lowest setting, call light within reach, side rails up x2.
[2019-05-18 08:00] VITALS: BP 119/69
[2019-05-18] MEDS: DOCUSATE SODIUM LIQ 100 MG/10 ML UDC GT SCH (08:38)
[2019-05-18] MEDS: FERROUS SULFATE UDC 300 MG/5 ML UDC GT SCH ×2 (08:38→16:05)
[2019-05-18] MEDS: ZINC SULFATE 220 MG CAPSULE GT SCH (08:39)
[2019-05-18] MEDS: MULTIVIT W/MINERALS 1 TAB TABLET GT SCH (08:39)
[2019-05-18] MEDS: ASCORBIC ACID 500 MG TABLET PO SCH (08:39)
[2019-05-18] MEDS: CLOTRIMAZOLE 1% 15 GM TUBE TP SCH ×2 (08:39→16:06)
[2019-05-18] MEDS: HYDROCORTISONE SOD SUCCINATE 100 MG/2 ML VIAL IV SCH (08:39)
[2019-05-18] MEDS: PANTOPRAZOLE 40 MG/PACK PACK GT SCH (08:39)
[2019-05-18] MEDS: CEFTAZIDIME 2 G in IV D5W 100 ML IV SCH ×2 (11:32→23:44)
[2019-05-18 16:00] VITALS: BP 135/69
--- NOTE | 2019-05-18 17:49 | NUR ---
RN CLOSING NOTES Patient remains on 3L nasal cannula, no sob noted, patient denies pain at this time. Patient awake and opens eyes but remains unable to communicate. Remains on peter and is draining well. Jevity @ 60 ml per hour for 24 hours. Bed at the lowest setting, call light within reach, side rails up x2. Will give report to NOC RN FOR BLACK bedside.
--- NOTE | 2019-05-18 19:23 | NUR ---
MS RN OPENING NOTE RECEIVED PATIENT IN BED AWAKE, NONVERBAL. STABLE, ON 3LPM VIA NC. GT INFUSING ORDERED. NO S/S OF DISTRESS. WILL CONTINUE TO MONITOR
[2019-05-18 20:00] VITALS: BP 145/73
[2019-05-18] MEDS: JEVITY 1.2 CAL 1,000 ML BOTTLE GT PRN (21:41)
[2019-05-18] MEDS: ENOXAPARIN SODIUM 40 MG/0.4 ML DISP.SYRIN SQ SCH (21:51)
--- NOTE | 2019-05-19 06:15 | NUR ---
MS RN PT SLEEP WELL, AM CARE RENDERED, GT FEEDING INFUSING ORDERED TOLERATED WELL. APPEARS NOT IN DISTRESS GOOD SKIN CARE AT ALL TIMES. REPOSITION EVERY 2 HOURS. OFFLOAD HEELS AND ELBOWS. KEPT CLEAN, DRY AND COMFORTABLE. SAFETY MEASURES AT ALL TIMES. WILL ENDORSE TO NEXT SHIFT
[2019-05-19 06:39] LABS: BASOPHILS # (AUTO) 0.1 /CMM (0.0-0.2); BASOPHILS % (AUTO) 0.6 % (0.0-2.0); EOSINOPHILS % (AUTO) 0.7 % (0.0-6.0); HEMATOCRIT 35 % (33-45); HEMOGLOBIN 11.3 g/dL (11.5-14.8); LYMPHOCYTES # (AUTO) 1.8 /CMM (0.8-4.8); LYMPHOCYTES % (AUTO) 12.2 % (20.0-44.0); MEAN CORPUSCULAR HGB CONC 32 g/dl (31.0-36.0); MEAN CORPUSCULAR VOLUME 85 fL (82-100); MONOCYTES # (AUTO) 1.1 /CMM (0.1-1.30); MONOCYTES % (AUTO) 7.3 % (2.0-12.0); NEUTROPHILS # (AUTO) 11.9 /CMM (1.8-8.9); NEUTROPHILS % (AUTO) 79.2 % (43.0-81.0); PLATELET COUNT (AUTO) 229 /CMM (150-450); RED BLOOD CELL COUNT(AUTO) 4.18 MIL/uL (4.0-5.2); WHITE BLOOD COUNT (AUTO) 15.1 K/uL (4.3-11.0)
--- NOTE | 2019-05-19 07:13 | NUR ---
RN OPENING NOTE PT WAS RECEIVED IN BED AT LOWEST AND LOCKED POSITION WITH SIDE RAILS UP X2, AWAKE OPENS EYES NONVERBAL, BREATHING IS EVEN BUT LABORED ON 3L VIA NC, NO S/S OF ANY DISTRESS OR PAIN NOTED AT THIS TIME, XAVIER PICC IS PATENT AND INTACT, INTERIANO IN PLACE AND DRAINING, SAFETY PRECAUTIONS IN PLACE, CALL LIGHT IN REACH, WILL MONITOR ACCORDINGLY
[2019-05-19 07:30] LABS: ALANINE AMINOTRANSFERASE 17 U/L (12-78); ALBUMIN 1.8 g/dL (3.4-5.0); ALKALINE PHOSPHATASE 124 U/L (46-116); ASPARTATE AMINOTRANSFERASE 26 U/L (15-37); BILIRUBIN,TOTAL 0.4 mg/dL (0.2-1.0); CALCIUM, SERUM 8.3 mg/dL (8.5-10.1); CARBON DIOXIDE 30 mmol/L (21-32); CHLORIDE 103 mmol/L (98-107); CREATININE 0.4 mg/dL (0.6-1.3); GLUCOSE 110 mg/dL (74-106); MAGNESIUM 1.9 mg/dL (1.8-2.4); PHOSPHORUS 2.5 mg/dL (2.5-4.9); SODIUM SERUM 139 mmol/L (136-145); TOTAL PROTEIN, SERUM 5.4 g/dL (6.4-8.2); UREA NITROGEN, BLOOD 16 mg/dL (7-18)
[2019-05-19 08:00] VITALS: BP 121/66
[2019-05-19] MEDS: DOCUSATE SODIUM LIQ 100 MG/10 ML UDC GT SCH (08:37)
[2019-05-19] MEDS: CLOTRIMAZOLE 1% 15 GM TUBE TP SCH ×2 (08:37→16:09)
[2019-05-19] MEDS: ZINC SULFATE 220 MG CAPSULE GT SCH (08:37)
[2019-05-19] MEDS: MULTIVIT W/MINERALS 1 TAB TABLET GT SCH (08:37)
[2019-05-19] MEDS: FERROUS SULFATE UDC 300 MG/5 ML UDC GT SCH ×2 (08:37→16:09)
[2019-05-19] MEDS: HYDROCORTISONE SOD SUCCINATE 100 MG/2 ML VIAL IV SCH (08:37)
[2019-05-19] MEDS: ASCORBIC ACID 500 MG TABLET PO SCH (08:37)
[2019-05-19] MEDS: PANTOPRAZOLE 40 MG/PACK PACK GT SCH (08:37)
[2019-05-19] MEDS: CEFTAZIDIME 2 G in IV D5W 100 ML IV SCH ×2 (11:04→23:57)
[2019-05-19] MEDS: SCOPOLAMINE HBR 1 EA PATCH.TD72 TD SCH (15:06)
[2019-05-19] MEDS: JEVITY 1.2 CAL 1,000 ML BOTTLE GT PRN (15:49)
[2019-05-19 16:00] VITALS: BP 143/73
--- NOTE | 2019-05-19 19:03 | NUR ---
RN CLOSING NOTE PT IN BED AT LOWEST AND LOCKED POSITION WITH SIDE RAILS UP X2, AWAKE OPENS EYES NONVERBAL, BREATHING IS EVEN BUT LABORED ON 3L VIA NC, NO DISTRESS OR PAIN AT THIS TIME, XAVIER PICC IS PATENT AND INTACT, INTERIANO IN PLACE AND DRAINING WITH 1500CC OUT, PT HAD 3 BM THROUGHOUT SHIFT, SAFETY PRECAUTIONS IN PLACE, CALL LIGHT IN REACH, ALL NEEDS ATTENDED TO, WILL ENDORSE TO NIGHT RN FOR BLACK.
--- NOTE | 2019-05-19 19:20 | NUR ---
RN OPEN NOTES RECEIVED PATIENT RESTING COMFORTABLY IN BED. NON-VERBAL WITH EYE OPENING RESPONSE. NO SIGNS OF DISTRESS OR DISCOMFORT. BREATHING EVEN AND UNLABORED. ON 3LPM O2 VIA NC. HAS XAVIER PICC WITH NS INFUSING, PATENT AND INTACT, NO SIGNS OF REDNESS OR INFILTRATION. HAS F/C INTACT, DRAINING CLEAR YELLOW FLUID. BED IN LOW LOCKED POSITION WITH SIDE RAILS X2. CALL LIGHT WITHIN REACH. WILL CONTINUE TO MONITOR. Addendum: 05/20/19 at 0019 by ASH SHOOK RN PT HAS GTUBE INTACT WITH FEEDING RUNNING, TOLERATING WELL.
[2019-05-19 20:00] VITALS: BP 136/71
[2019-05-19] MEDS: ENOXAPARIN SODIUM 40 MG/0.4 ML DISP.SYRIN SQ SCH (20:34)
[2019-05-19 20:36] VITALS: BP 136/71
[2019-05-19] MEDS: IV NS 0.9% 1,000 ML IV PRN (23:56)
--- NOTE | 2019-05-20 06:58 | NUR ---
RN CLOSING NOTES PATIENT RESTING COMFORTABLY IN BED. NON-VERBAL WITH EYE OPENING RESPONSE. NO SIGNS OF DISTRESS OR DISCOMFORT. BREATHING EVEN AND UNLABORED. ON 3LPM O2 VIA NC. HAS XAVIER PICC WITH NS INFUSING, PATENT AND INTACT, NO SIGNS OF REDNESS OR INFILTRATION. HAS F/C INTACT, DRAINING CLEAR YELLOW FLUID. HAS GTUBE INTACT WITH FEEDING RUNNING, PATIENT TOLERATING WELL WITH <10ML OF RESIDUAL NOTED THROUGHOUT SHIFT. ALL NEEDS MET. NO SIGNIFICANT CHANGES THROUGH THE NIGHT. PATIENT REPOSITIONED Q2H AND PRN. BED IN LOW LOCKED POSITION WITH SIDE RAILS X2. CALL LIGHT WITHIN REACH. WILL ENDORSE TO AM SHIFT FOR BLACK
[2019-05-20 08:00] VITALS: BP 104/50
--- NOTE | 2019-05-20 08:00 | NUR ---
rn notes RECEIVED PATIENT IN THE BED TOTAL CARE, CONFUSED, OPEN EYES WHEN CALLED NAME OR TOUCHED, NON VERBAL, NO ACUTE RESPIRATORY DISTRESS,. PATIENT ON GT FEEDING JEVITY1.2 AT 60ML/HR INTACT, CHECKED RESIDUAL, AND PLACEMENT. KEEP[ HOB ELEVATED FOR ASPIRATION PRECAUTION, V/S STABLE, PATIENT ON INTERIANO CATHETER INTACT DRAINING LIGHT YELLOW OUTPUT.INFUSING NS AT 50ML/HR ON RIGHT UPPER PICC LINE. ASSIST TURN AND REPOSTION Q 2 HR, PATIENT INCONTINENT APPLIED Z-GUARD, CALL LIGHT WITHIN TO REACH, SAFETY PRECAUTION MAINTAINED ALL THE TIME.
[2019-05-20] MEDS: ZINC SULFATE 220 MG CAPSULE GT SCH (10:45)
[2019-05-20] MEDS: DOCUSATE SODIUM LIQ 100 MG/10 ML UDC GT SCH (10:45)
[2019-05-20] MEDS: HYDROCORTISONE SOD SUCCINATE 100 MG/2 ML VIAL IV SCH (10:45)
[2019-05-20] MEDS: ASCORBIC ACID 500 MG TABLET PO SCH (10:45)
[2019-05-20] MEDS: FERROUS SULFATE UDC 300 MG/5 ML UDC GT SCH ×2 (10:45→17:16)
[2019-05-20] MEDS: MULTIVIT W/MINERALS 1 TAB TABLET GT SCH (10:45)
[2019-05-20] MEDS: PANTOPRAZOLE 40 MG/PACK PACK GT SCH (10:45)
[2019-05-20] MEDS: CLOTRIMAZOLE 1% 15 GM TUBE TP SCH ×2 (10:47→17:14)
[2019-05-20] MEDS: CEFTAZIDIME 2 G in IV D5W 100 ML IV SCH (11:32)
--- NOTE | 2019-05-20 13:32 | NUR ---
rn notes patient stable and will discharge to the snf per hospitalist order.
--- NOTE | 2019-05-20 13:47 | NUR ---
RN NOTES SEEN PATIENT BY Dr BENNETT , AND ID JEANIE HORN ALSO THEY WILL FOLLOW PATIENT UP IN THE SNF.
[2019-05-20 16:00] VITALS: BP 128/70
--- NOTE | 2019-05-20 18:00 | NUR ---
rn notes patient going to discharge back to the snf. Patient confused, no acute respiratory distress, v/s stable, on O2-2L NC. FC draining light yellow output. med reconciliation and discharge order reviewed and explained to. report given SNF RN. RN verbalized understanding. patient has no belonging, unable to sign paperwork co-signed by another rn name truong Looney notified for discharge planing. patient will peanut picker by ambulance. endorsed oncoming nurse follow plan of care.
--- NOTE | 2019-05-20 19:20 | NUR ---
RN OPENING NOTE RECEIVED PATIENT RESTING IN COMFORTABLY IN BED, EASILY AROUSABLE. NON-VERBAL. NO SIGNS OF DISTRESS OR DISCOMFORT. BREATHING EVEN AND UNLABORED. ON 3LPM O2 VIA NC. HAS XAVIER PICC, PATENT AND INTACT, NO SIGNS OF REDNESS OR INFILTRATION. HAS GTUBE INTACT, NO RESIDUAL NOTED AT THIS TIME. F/C INTACT, DRAINING CLEAR YELLOW FLUID. BED IN LOW LOCKED POSITION WITH SIDE RAILS X2. CALL LIGHT WITHIN REACH. PATIENT AWAITING DISCHARGE BACK TO SNF, [employer] TIME IS 2000 PER AM RN. WILL CONTINUE TO MONITOR.
[2019-05-20 19:30] VITALS: BP 127/85
--- NOTE | 2019-05-20 19:50 | NUR ---
RN CLOSING NOTES PATIENT DISCHARGED TO SNF VIA EMT IN STABLE CONDITION. NO SIGNS OF DISTRESS OR DISCOMFORT. BREATHING EVEN AND UNLABORED. ON 3LPM O2 VIA NC. XAVIER PICC LINE PATENT AND INTACT, NO SIGNS OF REDNESS OR INFILTRATION. GTUBE CLAMPED AND INTACT. F/C INTACT DRAINING CLEAR YELLOW FLUID. PATIENT CONSERVATOR AWARE OF DISCHARGE EDUCATION AND INSTRUCTIONS, AND VERBALIZE UNDERSTANDING PER ROSALVA CONTRERAS. PATIENT HAS NO BELONGINGS. DISCHARGE PACKET AND RECORDS SENT WITH PATIENT. ID BAND REMOVED. SKIN PHOTO DOCUMENTATION DONE.
--- NOTE | 2019-06-25 15:47 | NUR ---
RN NOTES LATE ENTRY ON 05/13/2019 , PROPOFOL DISCONTINUED IMMEDIATELY AT [address] MUNGUIA ORDER .
== END 2019-05-20 19:50 | DRG 870 ==
LOC: ER 12:08 → ICU 14:15 → MEDSG2 05-13 18:29
PROVIDERS: ADMIT Nurse Practitioner Acute Care; ATTEND Nurse Practitioner Acute Care
PROC: 5A1955Z Respiratory Ventilation, Greater than 96 Consecutive Hours (ICD-10-PCS; principal; 2019-05-09)
PROC: 0BH17EZ Insertion of Endotracheal Airway into Trachea, Via Natural or Artificial Opening (ICD-10-PCS; 2019-05-09)
PROC: 02HV33Z Insertion of Infusion Device into Superior Vena Cava, Percutaneous Approach (ICD-10-PCS; 2019-05-09)
PROC: B548ZZA Ultrasonography of Superior Vena Cava, Guidance (ICD-10-PCS; 2019-05-09)
DX: A41.9 Sepsis, unspecified organism (principal); G92 Toxic encephalopathy; I21.A1 Myocardial infarction type 2; E43 Unspecified severe protein-calorie malnutrition; N17.0 Acute kidney failure with tubular necrosis; I50.33 Acute on chronic diastolic (congestive) heart failure; J96.02 Acute respiratory failure with hypercapnia; J96.01 Acute respiratory failure with hypoxia; R65.21 Severe sepsis with septic shock; J15.1 Pneumonia due to Pseudomonas; N39.0 Urinary tract infection, site not specified; E87.2 Acidosis; I13.0 Hypertensive heart and chronic kidney disease with heart failure and stage 1 through stage 4 chronic kidney disease, or unspecified chronic kidney disease; D68.69 Other thrombophilia; E27.40 Unspecified adrenocortical insufficiency; E83.39 Other disorders of phosphorus metabolism; E83.42 Hypomagnesemia; E87.6 Hypokalemia; D50.9 Iron deficiency anemia, unspecified; D63.8 Anemia in other chronic diseases classified elsewhere; F32.9 Major depressive disorder, single episode, unspecified; M19.90 Unspecified osteoarthritis, unspecified site; N18.9 Chronic kidney disease, unspecified; Z86.73 Personal history of transient ischemic attack (TIA), and cerebral infarction without residual deficits; Z66 Do not resuscitate; Z93.1 Gastrostomy status; Z96.642 Presence of left artificial hip joint; G30.9 Alzheimer's disease, unspecified; F02.80 Dementia in other diseases classified elsewhere, unspecified severity, without behavioral disturbance, psychotic disturbance, mood disturbance, and anxiety; M81.0 Age-related osteoporosis without current pathological fracture; R29.6 Repeated falls; R13.10 Dysphagia, unspecified; M62.84 Sarcopenia; E88.09 Other disorders of plasma-protein metabolism, not elsewhere classified; R00.1 Bradycardia, unspecified; J40 Bronchitis, not specified as acute or chronic
CPT/HCPCS: 31720; 36415; 36569; 36600; 71045-TC; 73564-TC; 73590-TC; 80048-TC; 80053-TC; 80076-TC; 80202-TC; 81000-TC; 82436-TC; 82533; 82728-TC; 82803-TC; 83540-TC; 83605-TC; 83735-TC; 83935-TC; 84100-TC; 84133-TC; 84300-TC; 84439-TC; 84443-TC; 84484-TC; 85025-TC; 85730-TC; 87040-TC; 87070-TC; 87081-TC; 87086-TC; 87186-TC; 94002-TC; 94003-TC; 94640-TC; 94799-TC; 99082-TC; A4216; A6403; C1751; C9113; G0378; J0713; J1200; J1650; J1720; J2060; J2185; J2270; J2916; J3370; J3475; J3480; J3490; J7030; J7040; J7050; J7060

== ENCOUNTER 2019-05-23 15:08 | Emergency (ER) | payer MEDICARE, OTHER, MEDICAID ==
[~2019-05-23] VITALS: Ht 162.6 cm; Wt 61.2 kg
[~2019-05-23 15:08] MED LIST changes: -ALBU2.5V13 NEB; -AMIN30LI2 GT; +ASCO500C16 PO; +LACT-96 GT; -NUT.237L25 GT; -VIT500LI GT
[2019-05-23] MEDS ORDERED: ETOMIDATE 2 MG/ML VIAL IV ONE ×2 (15:15→16:00)
[2019-05-23] MEDS ORDERED: FEE EMEERGENCY 1 MIN EA MC ONE (15:15)
[2019-05-23] MEDS ORDERED: ROCURONIUM BROMIDE 50 MG/5 ML IV ONE ×2 (15:15→16:00)
--- NOTE | 2019-05-23 15:18 | NUR ---
DR EDWARDS, RT AND RN AT BEDSIDE FOR INTUBATION
--- NOTE | 2019-05-23 15:20 | NUR ---
VERBAL ORDER RECEIVED FROM DR EDWARDS OF ETOMIDATE 20MG IVP AND ROCURONIUM 75MG IVP BEFORE INTUBATION. CARRIED OUT.
--- NOTE | 2019-05-23 15:22 | NUR ---
INTUBATION DONE BY DR EDWARDS ET SIZE: 7.0 22 AT THE LIP +COLOR CHANGE + BILATERAL CHEST RISE AND FALL + BILATERAL LUNG SOUNDS
--- NOTE | 2019-05-23 15:25 | NUR ---
CALLED NURSING SUP FOR ICU BED.
[2019-05-23] MEDS ORDERED: ASCO500T10 GT (15:30)
--- NOTE | 2019-05-23 15:30 | NUR ---
VENT SETTINGS: AC 16 VT 450 O2: 80% NO PEEP
--- NOTE | 2019-05-23 15:45 | NUR ---
RT NOTE INTUBATED PT FOR AIRWAY PROTECTION, WITH MD AT BEDSIDE WITH A 7.0 ETT, 22 @ THE LIP, SETTINGS OF AC 16,450, 80% ABG IN 1 HR, PT STABLE WILL CONTINUE TO MONITOR
--- NOTE | 2019-05-23 15:55 | NUR ---
FLOW MATCH SOFA CUTTER AT BEDSIDE
[2019-05-23] MEDS ORDERED: IV NS 0.9% 1,000 ML BAG IV ONE (16:00)
[2019-05-23] MEDS ORDERED: PIPERACILLIN /TAZOBACTAM 3.375 G in IV D5W 50 ML IV ONE (16:00)
[2019-05-23] MEDS ORDERED: MORPHINE SULFATE INJ 2 MG/ML DISP.SYRIN IV ONE (16:00)
[2019-05-23] MEDS ORDERED: VANCOMYCIN 1 GM in IV D5W 250 ML IV ONE (16:00)
[2019-05-23 16:15] LABS: APPEARANCE,URINE Cloudy (CLEAR); BILIRUBIN,URINE SMALL (NEGATIVE); BLOOD, URINE Large Ery/uL (NEGATIVE); COLOR,URINE Yellow (YELLOW); KETONES,URINE Trace (NEGATIVE); LEUKOCYTE ESTERASE ,URINE Small (NEGATIVE); NITRITE, URINE Negative (NEGATIVE); PROTEIN,URINE >=300 mg/dl (NEGATIVE); UGLUCOSE Negative (NEGATIVE); UROBILINOGEN,URINE 0.2 EU/dL (0.2)
[2019-05-23 16:28] LABS: BASOPHILS # (AUTO) 0.1 /CMM (0.0-0.2); BASOPHILS % (AUTO) 0.3 % (0.0-2.0); EOSINOPHILS % (AUTO) 0.7 % (0.0-6.0); HEMATOCRIT 36 % (33-45); HEMOGLOBIN 11.5 g/dL (11.5-14.8); LYMPHOCYTES # (AUTO) 0.7 /CMM (0.8-4.8); LYMPHOCYTES % (AUTO) 2.7 % (20.0-44.0); MEAN CORPUSCULAR HGB CONC 32 g/dl (31.0-36.0); MEAN CORPUSCULAR VOLUME 85 fL (82-100); MONOCYTES # (AUTO) 1.5 /CMM (0.1-1.30); MONOCYTES % (AUTO) 5.5 % (2.0-12.0); NEUTROPHILS # (AUTO) 24.1 /CMM (1.8-8.9); NEUTROPHILS % (AUTO) 90.8 % (43.0-81.0); PLATELET COUNT (AUTO) 228 /CMM (150-450); RED BLOOD CELL COUNT(AUTO) 4.28 MIL/uL (4.0-5.2); WHITE BLOOD COUNT (AUTO) 26.6 K/uL (4.3-11.0)
[2019-05-23 16:32] LABS: RBC,URINE 21-50 /HPF (0-2)
[2019-05-23 16:33] LABS: BACTERIA,URINE None seen /HPF (None Seen); CALCIUM OXALATE CRYSTALS,UR Moderate /HPF (None Seen); SQUAMOUS EPITHELIAL CELL,UR Few /HPF (None Seen); YEAST,URINE Moderate /HPF (None Seen)
[2019-05-23 16:35] LABS: CALCIUM, SERUM 7.9 mg/dL (8.5-10.1); CARBON DIOXIDE 23 mmol/L (21-32); CHLORIDE 105 mmol/L (98-107); CREATININE 1.4 mg/dL (0.6-1.3); GLUCOSE 204 mg/dL (74-106); POTASSIUM 4.1 mmol/L (3.5-5.1); SODIUM SERUM 138 mmol/L (136-145); UREA NITROGEN, BLOOD 38 mg/dL (7-18)
[2019-05-23] MEDS ORDERED: PIPERACILLIN /TAZOBACTAM 3.375 G VIAL IV ONE (16:40)
[2019-05-23] MEDS ORDERED: VANCOMYCIN 1 GM VIAL ONE (16:40)
[2019-05-23 16:51] LABS: ALANINE AMINOTRANSFERASE 9 U/L (12-78); ALKALINE PHOSPHATASE 90 U/L (46-116); ASPARTATE AMINOTRANSFERASE 22 U/L (15-37); B-TYPE NATRIURETIC PEPTIDE 3951 PG/ML (0-125); BILIRUBIN,DIRECT 0.3 mg/dL (0.0-0.2); BILIRUBIN,TOTAL 0.6 mg/dL (0.2-1.0); TOTAL PROTEIN, SERUM 4.5 g/dL (6.4-8.2)
[2019-05-23 16:54] LABS: ALBUMIN 1.2 g/dL (3.4-5.0)
--- NOTE | 2019-05-23 16:56 | NUR ---
CALLED [facility] RUSSEL KENNEDY.
--- NOTE | 2019-05-23 17:15 | NUR ---
CALLED [facility] FOR TRANSFER. DR. FORBES.
[2019-05-23 17:29] LABS: ABG BASE EXCESS -5.8 mmol/L; ABG OXYGEN SATURATION 98.7 % (92.0-98.5); ABG PCO2 29.2 mmHg (35.0-45.0); ABG PH 7.403 (7.350-7.450); ABG PO2 181.7 mmHg (75.0-100.0); COHb 0.2 % (0.5-1.5); MetHb 0.6 % (0.0-1.5); O2Hb 97.9 % (94.0-97.0); SITE, ABG Right Radial; VENT MODE, BG AC 16 450 80%
[2019-05-23] MEDS ORDERED: MORPHINE SULFATE INJ 4 MG/ML DISP.SYRIN ONE (17:35)
--- NOTE | 2019-05-23 18:00 | NUR ---
CALLED [facility] AND STILL NO CONTACT WITH DR. FORBES. ADVISED IF THEY COULD PAGE EVERY 15-30 MINUTES.
--- NOTE | 2019-05-23 18:46 | NUR ---
DR. FORBES CALLED BACK AND ACCEPTED AT [place].
--- NOTE | 2019-05-23 19:17 | NUR ---
CALLED [facility] FOR TRANSPORT TO [facility] GAVE ETA OF 2330. TRIP NUMBER [id number].
--- NOTE | 2019-05-23 19:37 | NUR ---
REPORT GIVEN TO BONNY CONTRERAS FOR BLACK
--- NOTE | 2019-05-23 19:46 | NUR ---
REPORT GIVEN TO BONNY CONTRERAS FOR BLACK
--- NOTE | 2019-05-23 19:47 | NUR ---
REPORT RECEIVED FROM DIANE HESTER FOR BLACK Addendum: 05/23/19 at 2348 by PAMELA REPORT GIVEN TO DIANE BREEN
--- NOTE | 2019-05-23 20:31 | NUR ---
faxed facesheet and clinicals to Opal ko at [facility]
[2019-05-23] MEDS ORDERED: ONDANSETRON HCL/PF 4 MG/2 ML VIAL ONE (21:50)
[2019-05-23] MEDS ORDERED: ONDANSETRON HCL/PF 4 MG/2 ML VIAL IV ONE (22:00)
--- NOTE | 2019-05-23 22:05 | NUR ---
Per Cesar from [facility], updated ETA is 23:00 - midnight for ALS RT transport
[2019-05-23] MEDS ORDERED: NOREPINEPHRINE 8 MG in IV D5W 500 ML IV ONE (23:00)
--- NOTE | 2019-05-23 23:15 | NUR ---
LEVOPHED NOT GIVEN BP 141/81, MADE AWARE.
--- NOTE | 2019-05-23 23:48 | NUR ---
REPORT GIVEN TO EMS, PT STABLE FOR TRANSFER
[2019-05-24 00:31] VITALS: BP 118/59
== END 2019-05-24 00:33 | disposition short-term general hospital (02) ==
LOC: ER 15:14
DX: J96.90 Respiratory failure, unspecified, unspecified whether with hypoxia or hypercapnia (principal); J81.1 Chronic pulmonary edema; I95.9 Hypotension, unspecified; R00.0 Tachycardia, unspecified; G30.9 Alzheimer's disease, unspecified; F02.80 Dementia in other diseases classified elsewhere, unspecified severity, without behavioral disturbance, psychotic disturbance, mood disturbance, and anxiety; Z86.73 Personal history of transient ischemic attack (TIA), and cerebral infarction without residual deficits; Z98.890 Other specified postprocedural states; Z79.899 Other long term (current) drug therapy
CPT/HCPCS: 31500; 36415; 36600 ×2; 71045; 80048; 80076; 81001; 82803; 83605 ×2; 83880; 84145; 84484; 85025; 85730; 87040 ×2; 87081; 87086; 87804 ×2; 93005; 94002; 96365; 96367; 96375; 99291; J2270; J2405; J2543 ×2; J3370; J3490; J7030 ×3; J7060; 81000-TC